=== PATIENT | male | born 1965 | race American Indian/Alaskan Native ===

== ENCOUNTER 2019-11-20 13:55 | Inpatient (IN) | payer MEDICAID, OTHER, SELFPAY ==
[2019-11-20] MEDS ORDERED: SODIUM CHLORIDE 0.9% 500 ML 500 ML IV ONE (14:19)
[2019-11-20 14:31] LABS: Basophils # (Auto) 0.1 K/mm3 (0.0-0.1); Basophils % (Auto) 0.9 % (0.0-1.8); Hematocrit 43.2 % (35.5-45.6); Hemoglobin 14.1 gm/dl (11.8-15.2); Lymphocytes # (Auto) 1.2 K/mm3 (1.2-5.4); Lymphocytes % (Auto) 10.8 % (13.4-35.0); Mean Corpuscular HGB Conc 33 % (32-34); Mean Corpuscular Volume 91 fl (84-94); Monocytes # (Auto) 0.6 K/mm3 (0.0-0.8); Monocytes % (Auto) 5.5 % (0.0-7.3); Platelet Count 479 K/mm3 (140-440); Red Blood Count 4.77 M/mm3 (3.65-5.03); Red Cell Distribution Width 15.5 % (13.2-15.2)
[2019-11-20] MEDS ORDERED: ROCURONIUM 50 MG/5 ML INJ IV ONE ×3 (14:34→14:55)
[2019-11-20] MEDS ORDERED: KETAMINE 500 MG/5 ML VIAL MDV ONE (14:35)
[2019-11-20 14:44] LABS: Bilirubin,Urine NEG (Negative); Blood,Urine SM (Negative); Color,Urine Amber (Yellow); Mucus,Urine 3+ /HPF; Urobilinogen,Urine < 2.0 mg/dL (<2.0)
[2019-11-20 14:46] LABS: INR 1.24 (0.87-1.13)
[2019-11-20] MEDS ORDERED: ACETAMINOPHEN 650 MG RECT SUPP PR ONE (14:55)
[2019-11-20] MEDS ORDERED: KETAMINE 500 MG/5 ML VIAL MDV IV ONE (14:55)
[2019-11-20] MEDS ORDERED: SODIUM CHLORIDE 0.9% 1000 ML IV SOLN IV ONE (14:55)
[2019-11-20] MEDS ORDERED: MIDAZOLAM 2 MG/2 ML INJ IV PRN (14:55)
[2019-11-20] MEDS ORDERED: fentaNYL 100 MCG/2 ML INJ IV PRN (14:55)
[2019-11-20] MEDS ORDERED: MINERAL OIL/PETROLATUM, WHITE OPHTH OINT 3.5 GM OU PRN (14:55)
[2019-11-20] MEDS ORDERED: LIP THERAPY VASELINE TP PRN (14:55)
--- NOTE | 2019-11-20 14:59 | Emergency Department Report ---
ED General Adult HPI - General Chief complaint: Dyspnea/Respdistress Stated complaint: NOBLE PUI?: Yes Time Seen by Provider: 11/20/19 14:13 Source: EMS ( EMS documentation not available at time of chart dictation ), RN notes reviewed, old records reviewed Mode of arrival: Ambulatory Limitations: Altered Mental Status, Physical Limitation - History of Present Illness Initial comments: The patient is a 54-year-old gentleman. I have evaluated this patient in the past. The patient was recently admitted to this hospital. His past medical history includes disability, recently evaluated for probable pneumonia, negative urine culture, had a TTE which had a suspected vegetation, ruled out for COVID pneumonia, had x-ray of the chest which showed right upper lobe nodular pneumonia, had a CT scan of the brain which was negative for acute findings. Today, the patient is brought to the hospital by emergency medical services for respiratory distress. It is unknown when the patient symptoms started. The patient is altered. The patient does not have a gag reflex. The patient desaturates to 83% on room air and is markedly tachypneic. He is not able to describe the qualitative nature of his symptoms, exacerbating, or relieving factors of his symptoms. Given altered mental status, tachypnea, lack of gag reflex, patient not a candidate for positive pressure noninvasive ventilation. He is immediately placed on isolation precautions, and intubated by myself using maximum barrier precautions and personal protective equipment. Please note that I had on complete personal protective equipment during the patient's initial history and physical examination. He is not accompanied by friends or family at this time, and therefore, collateral information is not available at this time. Currently, he is intubated, receiving mechanical ventilation, and sedation packets has been ordered. A code sepsis was called overhead. Appropriate antibiotics were ordered. Critical care physician is paged. -: unknown Radiation: other Severity scale (0 -10): 1 Quality: other Consistency: other Improves with: other Worsens with: other Associated Symptoms: other - Related Data Home Medications Medication Instructions Recorded Confirmed Last Taken ALPRAZolam [Xanax TAB] 1 mg PO HS PRN 11/09/19 11/09/19 Unknown Nicotine [Habitrol] 21 mg TRANSDERMA Q24HR 11/09/19 11/09/19 Unknown haloperidoL [Haloperidol] 5 mg PO DAILY 11/09/19 11/09/19 Unknown Previous Rx's Medication Instructions Recorded Last Taken Type LORazepam [Ativan] 1 mg PO QHS #30 tab 11/12/19 Unknown Rx Morphine Concentrate [MORPHINE 10 mg PO Q4HR PRN #30 ml 11/12/19 Unknown Rx Conc 20 MG/ML ORAL LIQ] Allergies Allergy/AdvReac Type Severity Reaction Status Date / Time No Known Allergies Allergy Unverified 11/08/19 16:31 ED Review of Systems ROS: Stated complaint: NOBLE Other details as noted in HPI Comment: Unobtainable due to pts medical conditions ED Past Medical Hx - Past Medical History Previous Medical History?: Yes Hx Diabetes: (Unknown) Hx Asthma: (Unknown) Hx COPD: (Ubknown) Additional medical history: unable to assess - Surgical History Additional Surgical History: unable to assess - Social History Smoking Status: Unknown if ever smoked Substance Use Type: Other - Medications Home Medications: Home Medications Medication Instructions Recorded Confirmed Last Taken Type ALPRAZolam [Xanax TAB] 1 mg PO HS PRN 11/09/19 11/09/19 Unknown History Nicotine [Habitrol] 21 mg TRANSDERMA Q24HR 11/09/19 11/09/19 Unknown History haloperidoL [Haloperidol] 5 mg PO DAILY 11/09/19 11/09/19 Unknown History LORazepam [Ativan] 1 mg PO QHS #30 tab 11/12/19 Unknown Rx Morphine Concentrate [MORPHINE 10 mg PO Q4HR PRN #30 ml 11/12/19 Unknown Rx Conc 20 MG/ML ORAL LIQ] ED Physical Exam - General Limitations: Physical Limitation General appearance: obtunded - Head Head exam: Present: atraumatic, normocephalic - Eye Eye exam: Present: normal appearance - ENT ENT exam: Present: mucous membranes dry - Neck Neck exam: Present: normal inspection - Respiratory Respiratory exam: Present: respiratory distress, wheezes, rhonchi, accessory muscle use - Cardiovascular Cardiovascular Exam: Present: normal rhythm, tachycardia, normal heart sounds. Absent: systolic murmur, diastolic murmur, rubs, gallop - GI/Abdominal GI/Abdominal exam: Present: soft, other (Scaphoid abdomen is noted). Absent: distended, tenderness, guarding, rebound, rigid, pulsatile mass - Rectal Rectal exam: Present: deferred - Extremities Exam Extremities exam: Present: normal inspection, other (2+ pulses noted in the bilateral upper and lower extremities. There is no palpable cord. negative Homans sign. Muscular compartments are soft. The pelvis is stable.). Absent: calf tenderness - Back Exam Back exam: Present: normal inspection. Absent: tenderness, CVA tenderness (R), CVA tenderness (L), paraspinal tenderness, vertebral tenderness - Neurological Exam Neurological exam: Present: altered, other (Initially breathing spontaneously. Eyes open spontaneously. Nonverbal. Not moving 4 extremities. Detailed neurologic examination not possible secondary to acute respiratory failure) - Skin Skin exam: Present: warm, dry, intact, normal color. Absent: rash ED Course Vital Signs 11/20/19 11/20/19 11/20/19 14:01 14:09 14:16 Temperature 100.8 F H Pulse Rate 137 H 136 H 131 H Respiratory 51 H 40 H 51 H Rate Blood Pressure 156/119 156/119 Blood Pressure 156/119 [Right] O2 Sat by Pulse 100 100 Oximetry 11/20/19 11/20/19 11/20/19 14:20 14:30 14:46 Temperature Pulse Rate 132 H 129 H Respiratory 40 H 47 H 34 H Rate Blood Pressure 156/119 156/119 Blood Pressure [Right] O2 Sat by Pulse 100 92 91 Oximetry 11/20/19 11/20/19 11/20/19 15:00 15:04 15:16 Temperature Pulse Rate 134 H 134 H Respiratory 15 18 20 Rate Blood Pressure 159/120 156/119 Blood Pressure [Right] O2 Sat by Pulse 90 Oximetry 11/20/19 11/20/19 11/20/19 15:30 15:32 15:33 Temperature Pulse Rate 128 H 135 H Respiratory 20 18 Rate Blood Pressure 156/119 159/120 Blood Pressure [Right] O2 Sat by Pulse 82 L 92 Oximetry 11/20/19 15:46 Temperature Pulse Rate 125 H Respiratory 21 Rate Blood Pressure 159/120 Blood Pressure [Right] O2 Sat by Pulse 91 Oximetry - Reevaluation(s) Reevaluation #1: 11/20/19 15:07 Differential diagnosis, including but not limited to: Bacteremia, viremia, pneumonia, viral versus bacterial, urinary tract infection Assessment and plan: 54-year-old gentleman with global alteration in mental status, last known well time is not known, with hypoxia, lack of a gag reflex, market tachypnea, recently ruled out for COVID, intubated for airway protection given the aforementioned findings. We will continue isolation. Fluids and antibiotics and supportive care will be administered. Critical care physician on-call is paged. He will need to be admitted. Reevaluation #2: 11/20/19 15:19 Case is presented to critical care physician, Dr. Vallejo, who will follow in consultation. Case presented to hospital physician, Dr. Bethea, who will admit the patient to the intensive care unit. - Intubation Time Out Performed: No (Emergency procedure) Sedative: Ketamine Mg Given: 100 Paralytic: Rocuronium Mg Given: 100 Laryngoscope: fiberoptic video scope Size: 4 Assist Device Used: fiberoptic device ET Tube Size: 7.5 Tube Secured Depth (cm): 23 Tube Secured Location: teeth Tube Placement Confirmation: visualized tube passing t, equal breath sounds bilat, no breath sounds over epi, confirmation by capnometr Intubation Complications: hypoxia (Patient was hypoxic prior to intubation. With [id number] ventilation, corrects to 90%) ED Medical Decision Making - Lab Data Result diagrams: 11/20/19 14:27 11/20/19 14:19 Vital Signs 11/20/19 11/20/19 14:09 14:20 Temperature 100.8 F H Pulse Rate 136 H Respiratory 40 H 40 H Rate Blood Pressure 156/119 Blood Pressure 156/119 [Right] O2 Sat by Pulse 100 100 Oximetry Lab Results 11/20/19 11/20/19 11/20/19 Range/Units 14:19 14:20 14:27 WBC 11.3 H (4.5-11.0) K/mm3 RBC 4.77 (3.65-5.03) M/mm3 Hgb 14.1 (11.8-15.2) gm/dl Hct 43.2 (35.5-45.6) % MCV 91 (84-94) fl MCH 30 (28-32) pg MCHC 33 (32-34) % RDW 15.5 H (13.2-15.2) % Plt Count 479 H (140-440) K/mm3 Lymph % (Auto) 10.8 L (13.4-35.0) % [place] % (Auto) 5.5 (0.0-7.3) % Eos % (Auto) 0.0 (0.0-4.3) % Baso % (Auto) 0.9 (0.0-1.8) % Lymph # 1.2 (1.2-5.4) K/mm3 [place]pton # 0.6 (0.0-0.8) K/mm3 Eos # 0.0 (0.0-0.4) K/mm3 Baso # 0.1 (0.0-0.1) K/mm3 Seg Neutrophils % 82.8 H (40.0-70.0) % Seg Neutrophils # 9.4 H (1.8-7.7) K/mm3 PT (12.2-14.9) Sec. INR (0.87-1.13) VBG pH (7.320-7.420) Sodium 145 (137-145) mmol/L Potassium 4.8 (3.6-5.0) mmol/L Chloride 102.4 (98-107) mmol/L Carbon Dioxide 24 (22-30) mmol/L Anion Gap 23 mmol/L BUN 21 H (9-20) mg/dL Creatinine 0.6 L (0.8-1.5) mg/dL Estimated GFR > 60 ml/min BUN/Creatinine Ratio 35 % Glucose 128 H (75-100) mg/dL Lactic Acid (0.7-2.0) mmol/L Calcium 9.4 (8.4-10.2) mg/dL Total Bilirubin 0.60 (0.1-1.2) mg/dL AST 35 (5-40) units/L ALT 22 (7-56) units/L Alkaline Phosphatase 57 (35-129) units/L Total Protein 9.0 H (6.3-8.2) g/dL Albumin 2.9 L (3.9-5) g/dL Albumin/Globulin Ratio 0.5 % Urine Color Gissel (Yellow) Urine Turbidity Clear (Clear) Urine pH 5.0 (5.0-7.0) Ur Specific [place] 1.027 (1.003-1.030) Urine Protein 30 mg/dl (Negative) mg/dL Urine Glucose (UA) Neg (Negative) mg/dL Urine Ketones Neg (Negative) mg/dL Urine Blood Sm (Negative) Urine Nitrite Neg (Negative) Urine Bilirubin Neg (Negative) Urine Urobilinogen < 2.0 (<2.0) mg/dL Ur Leukocyte Esterase Neg (Negative) Urine WBC (Auto) 4.0 (0.0-6.0) /HPF Urine RBC (Auto) 16.0 (0.0-6.0) /HPF Urine Mucus 3+ /HPF 11/20/19 11/20/19 11/20/19 Range/Units 14:27 14:36 14:36 WBC (4.5-11.0) K/mm3 RBC (3.65-5.03) M/mm3 Hgb (11.8-15.2) gm/dl Hct (35.5-45.6) % MCV (84-94) fl MCH (28-32) pg MCHC (32-34) % RDW (13.2-15.2) % Plt Count (140-440) K/mm3 Lymph % (Auto) (13.4-35.0) % [place] % (Auto) (0.0-7.3) % Eos % (Auto) (0.0-4.3) % Baso % (Auto) (0.0-1.8) % Lymph # (1.2-5.4) K/mm3 [place]pton # (0.0-0.8) K/mm3 Eos # (0.0-0.4) K/mm3 Baso # (0.0-0.1) K/mm3 Seg Neutrophils % (40.0-70.0) % Seg Neutrophils # (1.8-7.7) K/mm3 PT 15.3 H (12.2-14.9) Sec. INR 1.24 H (0.87-1.13) VBG pH 7.477 H (7.320-7.420) Sodium (137-145) mmol/L Potassium (3.6-5.0) mmol/L Chloride (98-107) mmol/L Carbon Dioxide (22-30) mmol/L Anion Gap mmol/L BUN (9-20) mg/dL Creatinine (0.8-1.5) mg/dL Estimated GFR ml/min BUN/Creatinine Ratio % Glucose (75-100) mg/dL Lactic Acid 1.60 (0.7-2.0) mmol/L Calcium (8.4-10.2) mg/dL Total Bilirubin (0.1-1.2) mg/dL AST (5-40) units/L ALT (7-56) units/L Alkaline Phosphatase (35-129) units/L Total Protein (6.3-8.2) g/dL Albumin (3.9-5) g/dL Albumin/Globulin Ratio % Urine Color (Yellow) Urine Turbidity (Clear) Urine pH (5.0-7.0) Ur Specific [place] (1.003-1.030) Urine Protein (Negative) mg/dL Urine Glucose (UA) (Negative) mg/dL Urine Ketones (Negative) mg/dL Urine Blood (Negative) Urine Nitrite (Negative) Urine Bilirubin (Negative) Urine Urobilinogen (<2.0) mg/dL Ur Leukocyte Esterase (Negative) Urine WBC (Auto) (0.0-6.0) /HPF Urine RBC (Auto) (0.0-6.0) /HPF Urine Mucus /HPF - EKG Data 11/20/19 16:00 This is a sinus tachycardia, borderline extreme rightward axis deviation, incomplete right bundle branch block, left ventricular hypertrophy, atrial enlargement, motion artifact. Not a STEMI. Rate 131 bpm. QTC prolonged, 457 ms. HI interval 134 ms - Radiology Data Radiology results: pending, report reviewed, image reviewed Chest single view INDICATION: Chest pain with dyspnea IMPRESSION: The endotracheal tube terminates about 2 cm above the fay. The patient is moderately rotated. Signer Name: Nolan Morgan MD Signed: 11/20/2019 2:21 PM Workstation Name: [id number] Critical Care Time: Yes Critical care time in (mins) excluding proc time.: 45 Critical care attestation.: If time is entered above; I have spent that time in minutes in the direct care of this critically ill patient, excluding procedure time. ED Disposition Clinical Impression: Suspected 2019 novel coronavirus infection, Respiratory failure, Systemic inflammatory response syndrome (SIRS) Acute respiratory failure Qualifiers: Respiratory failure complication: hypoxia Qualified Code(s): J96.01 - Acute respiratory failure with hypoxia Disposition: OP ADMIT IP TO THIS HOSP Is pt being admited?: Yes Does the pt Need Aspirin: No Condition: Critical Referrals: PRIMARY CARE, [Primary Care Provider] - 3-5 Days
[2019-11-20] MEDS ORDERED: VANCOMYCIN PHARMACY TO DOSE IV SCH (15:00)
[2019-11-20] MEDS ORDERED: CEFEPIME/NS 2 GM/100 ML 2 GM/100 ML BAG IV SCH (15:00)
[2019-11-20] MEDS ORDERED: MIDAZOLAM 100 MG in SODIUM CHLORIDE 0.9% 80 ML IV SCH (15:00)
[2019-11-20 15:20] LABS: Alanine Aminotransferase 22 units/L (7-56); Albumin 2.9 g/dL (3.9-5); BUN/Creatinine Ratio 35; Blood Urea Nitrogen 21 mg/dL (9-20); Calcium 9.4 mg/dL (8.4-10.2); Hemolysis Index 11
--- NOTE | 2019-11-20 15:21 | History and Physical Report ---
History of Present Illness Chief complaint: He cant breathe History of present illness: 54 YO Male Personal Alf Resident with Debility, Severe Malnutrition presents to ED for evaluation. Patient is intubated and on ventilatory support at the time of my evaluation and is unable to provide history. Patient history taken from EMS staff, as well as ED staff, and personal usp staff. As per personal usp staff-the patient was found to have shortness of breath today as well as concomitant confusion. EMS was notified and upon arrival the patient was found to be in distress and placed on supplemental oxygen and transported to [facility] for further evaluation and care. Patient seen and evaluated in the e mergency department. Lab and imaging studies reviewed. The patient was found to have a pulse oximetry of 82% on room air , encephalopathic, and was unable to protect his airway. The patient was intubated and placed on vent support. Patient also found to have SIRS, and clinical findings suggestive of COVID 19 Infection. Patient initiated on COVID-19 protocol. Infectious disease service consulted in ED, Pulmonology consulted in ED. Patient initiated on pneumonia protocol. No further history is obtainable. No medication listed for reconciliation at the time of my evaluation. Prior admission on 11/08/2019 reviewed. Past History Past Medical History: other (See HPI) Past Surgical History: No surgical history, Other (Reviewed) Social history: single. denies: smoking, alcohol abuse Family history: no significant family history, other (Reviewed) Medications and Allergies Allergies Allergy/AdvReac Type Severity Reaction Status Date / Time No Known Allergies Allergy Unverified 11/08/19 16:31 Home Medications Medication Instructions Recorded Confirmed Last Taken Type ALPRAZolam [Xanax TAB] 1 mg PO HS PRN 11/09/19 11/09/19 Unknown History Nicotine [Habitrol] 21 mg TRANSDERMA Q24HR 11/09/19 11/09/19 Unknown History haloperidoL [Haloperidol] 5 mg PO DAILY 11/09/19 11/09/19 Unknown History LORazepam [Ativan] 1 mg PO QHS #30 tab 11/12/19 Unknown Rx Morphine Concentrate [MORPHINE 10 mg PO Q4HR PRN #30 ml 11/12/19 Unknown Rx Conc 20 MG/ML ORAL LIQ] Active Meds: Active Medications Fentanyl (Sublimaze) 50 mcg IV Q10MIN PRN PRN Reason: ANALGESIA Hydrophilic Ointment (Vaseline Lip Therapy) 1 applic TP Q2HR PRN PRN Reason: Dry Lips Vancomycin HCl 1,500 mg/ (Sodium Chloride) 530 mls @ 333 mls/hr IV ONCE ONE; Protocol Stop: 11/20/19 17:35 Cefepime HCl (Cefepime/Ns 2 Gm/100 Ml) 2 gm in 100 mls @ 200 mls/hr IV NOW MARY; Protocol Stop: 11/20/19 15:29 Fentanyl Citrate (Fentanyl Drip Premix) 2,000 mcg in 100 mls @ 3.969 mls/hr IV TITR MARY; Protocol Midazolam HCl 100 mg/ Sodium (Chloride) 100 mls @ 2 mls/hr IV TITR MARY; Sathya col Midazolam HCl (Versed) 2 mg IV Q10MIN PRN PRN Reason: Sedation Multi-Ingred Cream/Lotion/Oil/Oint (Artificial Tears Ophth Oint) 1 applic OU Q4HR PRN PRN Reason: Dry Eye(s) Review of Systems ROS unobtainable: due to endotracheal tube, due to mental status Exam - Constitutional Vitals: Temp Pulse Resp BP Pulse Ox 100.8 F H 136 H 40 H 156/119 100 11/20/19 14:09 11/20/19 14:09 11/20/19 14:20 11/20/19 14:09 11/20/19 14:20 General appearance: Present: mild distress - EENT Eyes: Present: miosis ENT: hearing decreased - Neck Neck: Present: supple, normal ROM - Respiratory Respiratory effort: labored Respiratory: bilateral: diminished, rhonchi - Cardiovascular Heart Sounds: Present: S1 & S2. Absent: rub, click - Extremities Extremities: pulses symmetrical, No edema - Abdominal General gastrointestinal: Present: soft, non-tender, non-distended, normal bowel sounds Male genitourinary: Present: normal - Integumentary Integumentary: Present: clear, dry, clammy, decreased turgor - Musculoskeletal Musculoskeletal: generalized weakness - Psychiatric Psychiatric: no appropriate mood/affect, no intact judgment & insight, no memory intact - Neurologic Neurologic: CNII-XII intact, moves all extremities, no gait normal Results - Labs CBC & Chem 7: 11/20/19 14:27 11/20/19 14:19 Labs: Abnormal lab results 11/20/19 11/20/1920 Range/Units 14:19 14:27 14:27 WBC 11.3 H (4.5-11.0) K/mm3 RDW 15.5 H (13.2-15.2) % Plt Count 479 H (140-440) K/mm3 Lymph % (Auto) 10.8 L (13.4-35.0) % Seg Neutrophils % 82.8 H (40.0-70.0) % Seg Neutrophils # 9.4 H (1.8-7.7) K/mm3 PT 15.3 H (12.2-14.9) Sec. INR 1.24 H (0.87-1.13) VBG pH (7.320-7.420) BUN 21 H (9-20) mg/dL Creatinine 0.6 L (0.8-1.5) mg/dL Glucose 128 H (75-100) mg/dL Total Protein 9.0 H (6.3-8.2) g/dL Albumin 2.9 L (3.9-5) g/dL 11/20/19 Range/Units 14:36 WBC (4.5-11.0) K/mm3 RDW (13.2-15.2) % Plt Count (140-440) K/mm3 Lymph % (Auto) (13.4-35.0) % Seg Neutrophils % (40.0-70.0) % Seg Neutrophils # (1.8-7.7) K/mm3 PT (12.2-14.9) Sec. INR (0.87-1.13) VBG pH 7.477 H (7.320-7.420) BUN (9-20) mg/dL Creatinine (0.8-1.5) mg/dL Glucose (75-100) mg/dL Total Protein (6.3-8.2) g/dL Albumin (3.9-5) g/dL Assessment and Plan - Patient Problems (1) Acute respiratory failure Current Visit: Yes Status: Acute Qualifiers: Respiratory failure complication: hypoxia Qualified Code(s): J96.01 - Acute respiratory failure with hypoxia Plan to address problem: Patient debated and placed on ventilatory support, wean vent as tolerated, sedation holiday, spontaneous breathing trial in a.m., pulmonary team consulted. The high probability of a clinically significant, sudden or life threatening deterioration of the [pulmonary, cardiac, neuro] system(s) required my full and direct attention, intervention and personal management. The aggregate critical care time was [95] minutes. This time is in addition to time spent performing reported procedures but includes the following: [x] Data Review and interpretation [x] Patient assessment and monitoring of vital signs [x] Documentation [x] Medication orders and management (2) Suspected 2019 novel coronavirus infection Current Visit: Yes Status: Acute Plan to address problem: Coronavirus protocol, infectious disease service consulted, pulmonary consulted, coronavirus PCR ordered in emergency department. (3) Systemic inflammatory response syndrome (SIRS) Current Visit: Yes Status: Acute Plan to address problem: IV antibiotic therapy, CBC, CMP, chest x-ray, urinalysis, repeat CBC in a.m. (4) Encephalopathy Current Visit: No Status: Acute Plan to address problem: neuro check, aspiration precaution, seizure precautions, supportive care. (5) DVT prophylaxis Current Visit: No Status: Acute Plan to address problem: SCD to bilateral lower extremities while in bed, prophylactic heparin.
--- NOTE | 2019-11-20 15:25 | XRay Report ---
Chest single view INDICATION: Chest pain with dyspnea IMPRESSION: The endotracheal tube terminates about 2 cm above the fay. The patient is moderately r otated. Signer Name: Nolan Morgan MD Signed: 11/20/2019 3:21 PM Workstation Name: [id number]
[2019-11-20] MEDS: fentaNYL DRIP Premix 2,000 MCG/100 ML BAG IV SCH ×2 (15:44→22:44)
[2019-11-20] MEDS ORDERED: VANCOMYCIN 1,500 MG in SODIUM CHLORIDE 0.9% 500 ML 500 ML IV ONE (16:00)
[2019-11-20] MEDS ORDERED: fentaNYL DRIP Premix 2,000 MCG/100 ML BAG IV ONE (22:37)
[2019-11-21] MEDS: HEPARIN 5,000 UNIT/1 ML VIAL SUB-Q SCH ×3 (00:31→22:16)
[2019-11-21] MEDS ORDERED: HEPARIN 5,000 UNIT/1 ML VIAL ONE (00:31)
[2019-11-21 04:04] LABS: ABG Base Excess -0.5 mmol/L (-2.0-3.0); ABG HCO3 26.1 mmol/L (20.0-26.0); ABG Methemoglobin 0.5 % (0.0-1.5); ABG Oxygen Saturation 98.3 % (95.0-99.0); ABG PCO2 51.5 mm Hg; ABG PH 7.323 pH Units (7.350-7.450)
--- NOTE | 2019-11-21 05:06 | XRay Report ---
CHEST 1 VIEW, 11/21/2019 1:53 AM CLINICAL INFORMATION/INDICATION: Respiratory failure COMPARISON: Chest radiograph, 11/20/2019 FINDINGS: SUPPORT DEVICES: The endotracheal tube and esophagogastric tube project in expected position. HEART: The cardiac silhouette is normal in size. LUNGS/PLEURA: The lungs are clear of focal airspace disease or significant pleural effusion ADDITIONAL FINDINGS: No additional acute findings. IMPRESSION: 1. No evidence of acute cardiopulmonary process. Signer Name: Yanci Gómez MD Signed: 11/21/2019 5:02 AM Workstation Name: [id number]
[2019-11-21] MEDS ORDERED: cefTRIAXone/NS 1 GM/50 ML 1 GM/50 ML BAG IV SCH (10:00)
[2019-11-21] MEDS: fentaNYL DRIP Premix 2,000 MCG/100 ML BAG IV SCH ×2 (10:29→22:15)
--- NOTE | 2019-11-21 13:47 | Consultation ---
History of Present Illness - Reason for Consult Consult date: 11/21/19 r/o COVID Requesting physician: JONI POLANCO - History of Present Illness 54 y/o male with history of unknown medical history initially seen by ID during previous admission 11/08/2019 - 11/12/2019, sent to [facility]. During previous admission patient was found with generalized weakness, fever, cough and AMS for unclear period of time. EMS, found patient hypoxic mid 80s. EMS verbally stated that the patient was recently admitted to another hospital for unknown reasons. Patient's blood cultures grew coag-neg Staph initially felt to be a contaminant, however TTE with "fine linear ecodensity on TV" ? vegetation vs artefact, also noted to have aspiration pneumonia versus community-acquired pneumonia. COVID test negative. CXR with right upper lobe nodular pneumonia. Patient treated with Rocephin and vancomycin and plan was to do a transesophageal echo. However patient was discharged to hospice. Patient is now readmitted 11/20/2019 due to worsening shortness of breath and altered mental status. Symptoms are of unclear duration. Patient currently intubated unable to provide history. On arrival, temp 108, HR 137, R 26, BP 13 51 156/119, O2 83%. WBC 11.3. Ferritin 1110. D-dimer 4762. CRP 10. LDH 327. Procalcitonin 0.2. UA negative. Blood cultures no growth today. Urine culture 11/20/2019 no growth today. CXR no cardiopulmonary findings. On arrival patient was intubated due to desaturation down to 83%, severe tachypnea and lack of gag reflex. Review of Systems: Unable to obtain Past History Past Medical History: other (See HPI) Past Surgical History: No surgical history, Other (Reviewed) Social history: single. denies: smoking, alcohol abuse Family history: no significant family history, other (Reviewed) Medications and Allergies Allergies Allergy/AdvReac Type Severity Reaction Status Date / Time No Known Allergies Allergy Unverified 11/08/19 16:31 Home Medications Medication Instructions Recorded Confirmed Last Taken Type ALPRAZolam [Xanax TAB] 1 mg PO HS PRN 11/09/19 11/09/19 Unknown History Nicotine [Habitrol] 21 mg TRANSDERMA Q24HR 11/09/19 11/09/19 Unknown History haloperidoL [Haloperidol] 5 mg PO DAILY 11/09/19 11/09/19 Unknown History LORazepam [Ativan] 1 mg PO QHS #30 tab 11/12/19 Unknown Rx Morphine Concentrate [MORPHINE 10 mg PO Q4HR PRN #30 ml 11/12/19 Unknown Rx Conc 20 MG/ML ORAL LIQ] Active Meds: Active Medications Famotidine (Pepcid) 20 mg IV BID MARY Fentanyl (Sublimaze) 50 mcg IV Q10MIN PRN PRN Reason: ANALGESIA Heparin Sodium (Porcine) (Heparin) 5,000 unit SUB-Q Q12HR MARY Last Admin: 11/21/19 10:29 Dose: 5,000 unit Documented by: Hydrophilic Ointment (Vaseline Lip Therapy) 1 applic TP Q2HR PRN PRN Reason: Dry Lips Fentanyl Citrate (Fentanyl Drip Premix) 2,000 mcg in 100 mls @ 3.969 mls/hr IV TITR MARY; Protocol Last Admin: 11/21/19 10:29 Dose: 2 mcg/kg/hr, 7.938 mls/hr Documented by: Midazolam HCl 100 mg/ Sodium (Chloride) 100 mls @ 2 mls/hr IV TITR MARY; Protocol Ceftriaxone Sodium (Rocephin/Ns 1 Gm/50 Ml) 1 gm in 50 mls @ 100 mls/hr IV Q24HR MARY; Protocol Stop: 11/24/19 23:59 Last Admin: 11/21/19 11:02 Dose: 100 mls/hr Documented by: Midazolam HCl (Versed) 2 mg IV Q10MIN PRN PRN Reason: Sedation Multi-Ingred Cream/Lotion/Oil/Oint (Artificial Tears Ophth Oint) 1 applic OU Q4HR PRN PRN Reason: Dry Eye(s) Sodium Chloride (Sodium Chloride Flush Syringe 10 Ml) 10 ml IV BID MARY Last Admin: 11/20/19 22:45 Dose: 10 ml Documented by: Sodium Chloride (Sodium Chloride Flush Syringe 10 Ml) 10 ml IV PRN PRN PRN Reason: LINE FLUSH Last Admin: 11/21/19 10:29 Dose: 10 ml Documented by: Physical Examination - Physical Exam Narrative exam: General appearance: Alert intubated cachectic Eyes: Pupils equal reactive light accommodation nonicteric conjunctivae LUIS in place HENT: Atraumatic; oropharynx limited ETT Lungs: kimberlyn scattered rhonchi CV: RRR Abdomen: Soft Extremities: Cachectic Skin: No rash. Psych: Nonagitated Neuro: alert on the ventilator not following commands - Constitutional Vitals: Vital Signs Temp Pulse Resp BP Pulse Ox 98.6 F 105 H 20 105/72 98 11/21/19 12:00 11/21/19 12:00 11/21/19 12:00 11/21/19 11:21 11/21/19 12:00 Temperature -Last 24 Hours Temperature 98.6 F Temperature 98.6 F Temperature 98.7 F Temperature 98.1 F Temperature 100.8 F Temperature 100.8 F Results - Labs CBC & Chem 7: 11/20/19 14:27 11/20/19 15:16 Labs: Abnormal lab results 11/20/19 11/20/19 11/20/19 Range/Units 14:19 14:27 14:27 WBC 11.3 H (4.5-11.0) K/mm3 RDW 15.5 H (13.2-15.2) % Plt Count 479 H (140-440) K/mm3 Lymph % (Auto) 10.8 L (13.4-35.0) % Seg Neutrophils % 82.8 H (40.0-70.0) % Seg Neutrophils # 9.4 H (1.8-7.7) K/mm3 PT 15.3 H (12.2-14.9) Sec. INR 1.24 H (0.87-1.13) D-Dimer (0-234) ng/mlDDU ABG pH (7.350-7.450) pH Units ABG pO2 (80.0-90.0) mm Hg ABG HCO3 (20.0-26.0) mmol/L ABG Hemoglobin (14.0-18.0) gm/dl VBG pH (7.320-7.420) BUN 21 H (9-20) mg/dL Creatinine 0.6 L (0.8-1.5) mg/dL Glucose 128 H (75-100) mg/dL POC Glucose (70-105) Ferritin (13.0-400.0) ng/mL Lactate Dehydrogenase (91-180) units/L C-Reactive Protein (0.00-1.30) mg/dL Total Protein 9.0 H (6.3-8.2) g/dL Albumin 2.9 L (3.9-5) g/dL 11/20/19 11/20/19 11/20/19 Range/Units 14:36 15:16 15:16 WBC (4.5-11.0) K/mm3 RDW (13.2-15.2) % Plt Count (140-440) K/mm3 Lymph % (Auto) (13.4-35.0) % Seg Neutrophils % (40.0-70.0) % Seg Neutrophils # (1.8-7.7) K/mm3 PT (12.2-14.9) Sec. INR (0.87-1.13) D-Dimer 4762.24 H (0-234) ng/mlDDU ABG pH (7.350-7.450) pH Units ABG pO2 (80.0-90.0) mm Hg ABG HCO3 (20.0-26.0) mmol/L ABG Hemoglobin (14.0-18.0) gm/dl VBG pH 7.477 H (7.320-7.420) BUN (9-20) mg/dL Creatinine (0.8-1.5) mg/dL Glucose 122 H (75-100) mg/dL POC Glucose (70-105) Ferritin (13.0-400.0) ng/mL Lactate Dehydrogenase 329 H (91-180) units/L C-Reactive Protein 10.00 H (0.00-1.30) mg/dL Total Protein (6.3-8.2) g/dL Albumin (3.9-5) g/dL 11/20/19 11/21/19 11/21/19 Range/Units 15:16 03:55 12:18 WBC (4.5-11.0) K/mm3 RDW (13.2-15.2) % Plt Count (140-440) K/mm3 Lymph % (Auto) (13.4-35.0) % Seg Neutrophils % (40.0-70.0) % Seg Neutrophils # (1.8-7.7) K/mm3 PT (12.2-14.9) Sec. INR (0.87-1.13) D-Dimer (0-234) ng/mlDDU ABG pH 7.323 L (7.350-7.450) pH Units ABG pO2 127.0 H (80.0-90.0) mm Hg ABG HCO3 26.1 H (20.0-26.0) mmol/L ABG Hemoglobin 12.2 L (14.0-18.0) gm/dl VBG pH (7.320-7.420) BUN (9-20) mg/dL Creatinine (0.8-1.5) mg/dL Glucose (75-100) mg/dL POC Glucose 108 H (70-105) Ferritin 1110.0 H (13.0-400.0) ng/mL Lactate Dehydrogenase (91-180) units/L C-Reactive Protein (0.00-1.30) mg/dL Total Protein (6.3-8.2) g/dL Albumin (3.9-5) g/dL Assessment and Plan Cultures: Blood culture pending Assessment: 54 y/o male with history of unknown medical history initially seen by ID during previous admission 11/08/2019 - 11/12/2019, sent to [facility]. Patient is now readmitted 11/20/2019 due to worsening shortness of breath and altered mental status: #SIRS r/o sepsis: Present on admission with tachycardia, fever, unclear etiolo gy. UA neg. #R/o COVID: COVID test neg on on 514 and 11/19. However, noted markedly elevated inflammatory markers. Ferritin 1110. D-dimer 4762. CRP 10. LDH 327. Noted elevated mild procalcitonin at 0.2. Still high suspicion. #Recent Bilateral pneumonia: previous CXR with right upper lobe nodular pneumonia. #Acute hypoxemic respiratory failure: intubated #History of Coag-neg Staph bacteremia: initially felt to be a contaminant, however TTE with "fine linear ecodensity on TV" ? vegetation vs artefact, recommended LUIS but patient was discharged to hospice. #Severe malnutrition: obtain HIV and CT chest, abdomen and pelvis Recommendations: re-test for COVID-micro lab informed start vancomycin with PK consult stop ceftriaxone start cefepime 2 gm IV q 12h repeat TTE poor prognosis Will follow Malou tSone MD Infectious Diseases [employer] [facility], [place], [facility] ([facility] M [phone] O [phone]
--- NOTE | 2019-11-21 14:38 | Consultation ---
History of Present Illness Consult date: 11/21/19 Requesting physician: MARGIE VELIZ Reason for consult: other (Acute Hypoxemic Respiratory Failure) History of present illness: PULMONARY/CCM CONSULT NOTE (Full dictation # [id number] & [id number]) Please see dictated notes for full details Past History Past Medical History: other (See HPI) Past Surgical History: No surgical history, Other (Reviewed) Social history: single. denies: smoking, alcohol abuse Family history: no significant family history, other (Reviewed) Medications and Allergies Allergies Allergy/AdvReac Type Severity Reaction Status Date / Time No Known Allergies Allergy Unverified 11/08/19 16:31 Home Medications Medication Instructions Recorded Confirmed Last Taken Type ALPRAZolam [Xanax TAB] 1 mg PO HS PRN 11/09/19 11/09/19 Unknown History Nicotine [Habitrol] 21 mg TRANSDERMA Q24HR 11/09/19 11/09/19 Unknown History haloperidoL [Haloperidol] 5 mg PO DAILY 11/09/19 11/09/19 Unknown History LORazepam [Ativan] 1 mg PO QHS #30 tab 11/12/19 Unknown Rx Morphine Concentrate [MORPHINE 10 mg PO Q4HR PRN #30 ml 11/12/19 Unknown Rx Conc 20 MG/ML ORAL LIQ] Active Meds: Active Medications Famotidine (Pepcid) 20 mg IV BID MARY Fentanyl (Sublimaze) 50 mcg IV Q10MIN PRN PRN Reason: ANALGESIA Heparin Sodium (Porcine) (Heparin) 5,000 unit SUB-Q Q12HR MARY Last Admin: 11/21/19 10:29 Dose: 5,000 unit Documented by: Hydrophilic Ointment (Vaseline Lip Therapy) 1 applic TP Q2HR PRN PRN Reason: Dry Lips Fentanyl Citrate (Fentanyl Drip Premix) 2,000 mcg in 100 mls @ 3.969 mls/hr IV TITR MARY; Protocol Last Admin: 11/21/19 10:29 Dose: 2 mcg/kg/hr, 7.938 mls/hr Documented by: Midazolam HCl 100 mg/ Sodium (Chloride) 100 mls @ 2 mls/hr IV TITR MARY; Protocol Midazolam HCl (Versed) 2 mg IV Q10MIN PRN PRN Reason: Sedation Multi-Ingred Cream/Lotion/Oil/Oint (Artificial Tears Ophth Oint) 1 applic OU Q4HR PRN PRN Reason: Dry Eye(s) Sodium Chloride (Sodium Chloride Flush Syringe 10 Ml) 10 ml IV BID MARY Last Admin: 11/20/19 22:45 Dose: 10 ml Documented by: Sodium Chloride (Sodium Chloride Flush Syringe 10 Ml) 10 ml IV PRN PRN PRN Reason: LINE FLUSH Last Admin: 11/21/19 10:29 Dose: 10 ml Documented by: Physical Examination Vital signs: Vital Signs Pulse Resp 137 H 51 H 11/20/19 14:01 11/20/19 14:01 Results - Laboratory Findings CBC and BMP: 11/20/19 14:27 11/20/19 15:16 ABG ABG pH 7.323 pH Units (7.350-7.450) L 11/21/19 03:55 ABG pCO2 51.5 mm Hg 11/21/19 03:55 ABG pO2 127.0 mm Hg (80.0-90.0) H 11/21/19 03:55 ABG O2 Saturation 98.3 % (95.0-99.0) 11/21/19 03:55 PT/INR, D-dimer PT 15.3 Sec. (12.2-14.9) H 11/20/19 14:27 INR 1.24 (0.87-1.13) H 11/20/19 14:27 D-Dimer 4762.24 ng/mlDDU (0-234) H 11/20/19 15:16 Abnormal lab findings: Abnormal Labs 11/20/19 11/20/19 11/20/19 14:19 14:27 14:27 WBC 11.3 H RDW 15.5 H Plt Count 479 H Lymph % (Auto) 10.8 L Seg Neutrophils % 82.8 H Seg Neutrophils # 9.4 H PT 15.3 H INR 1.24 H D-Dimer ABG pH ABG pO2 ABG HCO3 ABG Hemoglobin VBG pH BUN 21 H Creatinine 0.6 L Glucose 128 H POC Glucose Ferritin Lactate Dehydrogenase C-Reactive Protein Total Protein 9.0 H Albumin 2.9 L 11/20/19 11/20/19 11/20/19 14:36 15:16 15:16 WBC RDW Plt Count Lymph % (Auto) Seg Neutrophils % Seg Neutrophils # PT INR D-Dimer 4762.24 H ABG pH ABG pO2 ABG HCO3 ABG Hemoglobin VBG pH 7.477 H BUN Creatinine Glucose 122 H POC Glucose Ferritin Lactate Dehydrogenase 329 H C-Reactive Protein 10.00 H Total Protein Albumin 11/20/19 11/21/19 11/21/19 15:16 03:55 12:18 WBC RDW Plt Count Lymph % (Auto) Seg Neutrophils % Seg Neutrophils # PT INR D-Dimer ABG pH 7.323 L ABG pO2 127.0 H ABG HCO3 26.1 H ABG Hemoglobin 12.2 L VBG pH BUN Creatinine Glucose POC Glucose 108 H Ferritin 1110.0 H Lactate Dehydrogenase C-Reactive Protein Total Protein Albumin
[2019-11-21] MEDS ORDERED: VANCOMYCIN/NS 1 GM/250 ML 1 GM/250 ML BAG IV SCH (15:00)
[2019-11-21] MEDS ORDERED: ALBUTEROL 2.5 MG/3 ML NEBU IH PRN (16:09)
--- NOTE | 2019-11-21 17:18 | Progress Note ---
Assessment and Plan - Patient Problems (1) Acute respiratory failure Current Visit: Yes Status: Acute Qualifiers: Respiratory failure complication: hypoxia Qualified Code(s): J96.01 - Acute respiratory failure with hypoxia Plan to address problem: Patient debated and placed on ventilatory support, wean vent as tolerated, sedation holiday, spontaneous breathing trial in a.m., pulmonary team consulted. The high probability of a clinically significant, sudden or life threatening deterioration of the [pulmonary, cardiac, neuro] system(s) required my full and direct attention, intervention and personal management. The aggregate critical care time was [95] minutes. This time is in addition to time spent performing reported procedures but includes the following: [x] Data Review and interpretation [x] Patient assessment and monitoring of vital signs [x] Documentation [x] Medication orders and management (2) Suspected 2019 novel coronavirus infection Current Visit: Yes Status: Acute Plan to address problem: Coronavirus protocol, infectious disease service consulted, pulmonary consulted, coronavirus PCR ordered in emergency department. (3) Systemic inflammatory response syndrome (SIRS) Current Visit: Yes Status: Acute Plan to address problem: IV antibiotic therapy, CBC, CMP, chest x-ray, urinalysis, repeat CBC in a.m. (4) Encephalopathy Current Visit: No Status: Acute Plan to address problem: neuro check, aspiration precaution, seizure precautions, supportive care. (5) DVT prophylaxis Current Visit: No Status: Acute Plan to address problem: SCD to bilateral lower extremities while in bed, prophylactic heparin. History Interval history: 54 YO Male HD#2 with Acute Respiratory Failure currently intubated on vent support, SIRS, Encephalopathy, suspected Covid 19. Patient maintained on ventilatory support overnight. Patient unable to be weaned from vent at this time. No improvement in patient status overnight however no decompensation overnight. Will wean vent as tolerated. Spontaneous breathing trial daily. Hospitalist Physical - Constitutional Vitals: Temp Pulse Resp BP Pulse Ox 98.6 F 107 H 20 105/72 98 11/21/19 16:00 11/21/19 15:54 11/21/19 14:00 11/21/19 15:54 11/21/19 15:54 General appearance: Present: mild distress - EENT Eyes: Present: miosis ENT: hearing decreased - Neck Neck: Present: supple - Respiratory Respiratory: bilateral: diminished, rhonchi - Cardiovascular Rhythm: regular Heart Sounds: Present: S1 & S2 - Extremities Extremities: no ischemia Peripheral Pulses: within normal limits - Abdominal General gastrointestinal: soft, non-tender, non-distended - Integumentary Integumentary: Present: clear, warm, dry - Psychiatric Psychiatric: no appropriate mood/affect, no intact judgment & insight, no memory intact - Neurologic Neurologic: no focal deficits, no moves all extremities, no gait normal Results - Labs CBC & Chem 7: 11/20/19 14:27 11/20/19 15:16 Labs: Laboratory Last Values WBC 11.3 K/mm3 (4.5-11.0) H 11/20/19 14:27 RBC 4.77 M/mm3 (3.65-5.03) 11/20/19 14: Hgb 14.1 gm/dl (11.8-15.2) 11/20/19 14: Hct 43.2 % (35.5-45.6) 11/20/19 14:27 MCV 91 fl (84-94) 11/20/19 14: MCH 30 pg (28-32) 11/20/19 14: MCHC 33 % (32-34) 11/20/19 14: RDW 15.5 % (13.2-15.2) H 11/20/19 14:27 Plt Count 479 K/mm3 (140-440) H 11/20/19 14:27 Lymph % (Auto) 10.8 % (13.4-35.0) L 11/20/19 14:27 [place] % (Auto) 5.5 % (0.0-7.3) 11/20/19 14: Eos % (Auto) 0.0 % (0.0-4.3) 11/20/19 14:27 Baso % (Auto) 0.9 % (0.0-1.8) 11/20/19 14: Lymph # 1.2 K/mm3 (1.2-5.4) 11/20/19 14: [place] # 0.6 K/mm3 (0.0-0.8) 11/20/19 14: Eos # 0.0 K/mm3 (0.0-0.4) 11/20/19 14: Baso # 0.1 K/mm3 (0.0-0.1) 11/20/19 14:27 Seg Neutrophils % 82.8 % (40.0-70.0) H 11/20/19 14:27 Seg Neutrophils # 9.4 K/mm3 (1.8-7.7) H 11/20/19 14:27 PT 15.3 Sec. (12.2-14.9) H 11/20/19 14:27 INR 1.24 (0.87-1.13) H 11/20/19 14:27 D-Dimer 4762.24 ng/mlDDU (0-234) H 11/20/19 15:16 ABG pH 7.323 pH Units (7.350-7.450) L 11/21/19 03:55 ABG pCO2 51.5 mm Hg 11/21/19 03:55 ABG pO2 127.0 mm Hg (80.0-90.0) H 11/21/19 03:55 ABG HCO3 26.1 mmol/L (20.0-26.0) H 11/21/19 03:55 ABG O2 Saturation 98.3 % (95.0-99.0) 11/21/19 03:55 ABG O2 Content 16.8 (0.0-44) 11/21/19 03:55 ABG Base Excess -0.5 mmol/L (-2.0-3.0) 11/21/19 03:55 ABG Hemoglobin 12.2 gm/dl (14.0-18.0) L 11/21/19 03:55 ABG Carboxyhemoglobin 1.1 % (0.0-5.0) 11/21/19 03:55 ABG Methemoglobin 0.5 % (0.0-1.5) 11/21/19 03:55 VBG pH 7.477 (7.320-7.420) H 11/20/19 14:36 Oxyhemoglobin 96.7 % (95.0-99.0) 11/21/19 03:55 FiO2 60 % 11/21/19 03:55 Sodium 145 mmol/L (137-145) 11/20/19 14:19 Potassium 4.8 mmol/L (3.6-5.0) 11/20/19 14:19 Chloride 102.4 mmol/L (98-107) 11/20/19 14:19 Carbon Dioxide 24 mmol/L (22-30) 11/20/19 14:19 Anion Gap 23 mmol/L 11/20/19 14:19 BUN 21 mg/dL (9-20) H 11/20/19 14:19 Creatinine 0.6 mg/dL (0.8-1.5) L 11/20/19 14:19 Estimated GFR > 60 ml/min 11/20/19 14:19 BUN/Creatinine Ratio 35 % 11/20/19 14:19 Glucose 122 mg/dL (75-100) H 11/20/19 15:16 POC Glucose 108 (70-105) H 11/21/19 12:18 Lactic Acid 1.50 mmol/L (0.7-2.0) 11/20/19 19:11 Calcium 9.4 mg/dL (8.4-10.2) 11/20/19 14:19 Magnesium 2.20 mg/dL (1.7-2.3) 11/20/19 15:16 Ferritin 1110.0 ng/mL (13.0-400.0) H 11/20/19 15:16 Total Bilirubin 0.60 mg/dL (0.1-1.2) 11/20/19 14:19 AST 35 units/L (5-40) 11/20/19 14:19 ALT 22 units/L (7-56) 11/20/19 14:19 Alkaline Phosphatase 57 units/L (35-129) 11/20/19 14:19 Lactate Dehydrogenase 329 units/L (91-180) H 11/20/19 15:16 Total Creatine Kinase 65 units/L (55-170) 11/20/19 15:16 C-Reactive Protein 10.00 mg/dL (0.00-1.30) H 11/20/19 15:16 Total Protein 9.0 g/dL (6.3-8.2) H 11/20/19 14:19 Albumin 2.9 g/dL (3.9-5) L 11/20/19 14:19 Albumin/Globulin Ratio 0.5 % 11/20/19 14:19 Procalcitonin 0.22 ng/mL (<0.15) 11/20/19 15:16 Urine Color [place] (Yellow) 11/20/19 14:20 Urine Turbidity Clear (Clear) 11/20/19 14:20 Urine pH 5.0 (5.0-7.0) 11/20/19 14:20 Ur Specific Orange 1.027 (1.003-1.030) 11/20/19 14:20 Urine Protein 30 mg/dl mg/dL (Negative) 11/20/19 14:20 Urine Glucose (UA) Neg mg/dL (Negative) 11/20/19 14:20 Urine Ketones Neg mg/dL (Negative) 11/20/19 14:20 Urine Blood Sm (Negative) 11/20/19 14:20 Urine Nitrite Neg (Negative) 11/20/19 14:20 Urine Bilirubin Neg (Negative) 11/20/19 14:20 Urine Urobilinogen < 2.0 mg/dL (<2.0) 11/20/19 14:20 Ur Leukocyte Esterase Neg (Negative) 11/20/19 14:20 Urine WBC (Auto) 4.0 /HPF (0.0-6.0) 11/20/19 14:20 Urine RBC (Auto) 16.0 /HPF (0.0-6.0) 11/20/19 14:20 Urine Mucus 3+ /HPF 11/20/19 14:20 Coronavirus (PCR) Negative (Negative) 11/21/19 Unknown Microbiology: Microbiology 11/20/19 Unknown Peripheral/Venous Blood Culture - Preliminary NO GROWTH AFTER 24 HOURS 11/20/19 Unknown Peripheral/Venous Blood Culture - Preliminary NO GROWTH AFTER 24 HOURS 11/20/19 14:20 Urine,[place] Urine Culture - Preliminary NO GROWTH AFTER 24 HOURS [place]/IV: Voiding Method Indwelling Catheter IV Catheter Type [Left Wrist] INT / Saline Lock Active Medications - Current Medications Current Medications: Generic Name Dose Route Start Last Admin Trade Name Freq PRN Reason Stop Dose Admin Albuterol 2.5 mg 11/21/19 16:09 Proventil IH Q4HRT PRN Shortness Of Breath Famotidine 20 mg 11/21/19 12:00 Pepcid IV BID MARY Fentanyl 50 mcg 11/20/19 14:55 Sublimaze IV Q10MIN PRN ANALGESIA Heparin Sodium (Porcine) 5,000 unit 11/20/19 22:00 11/21/19 10:29 Heparin SUB-Q 5,000 unit Q12HR MARY Administration Hydrophilic Ointment 1 applic 11/20/19 14:55 Vaseline Lip Therapy TP Q2HR PRN Dry Lips Fentanyl Citrate 2,000 mcg in 100 mls @ 3.969 mls/hr 11/20/19 15:00 11/21/19 10:29 Fentanyl Drip Premix IV 2 mcg/kg/hr TITR MARY 7.938 mls/hr Administration Protocol 1 MCG/KG/HR Midazolam HCl 100 mg/ Sodium 100 mls @ 2 mls/hr 11/20/19 15:00 Chloride IV TITR MARY Protocol 2 MG/HR Cefepime HCl 2 gm in 100 mls @ 200 mls/hr 11/21/19 15:00 Cefepime/Ns 2 Gm/100 Ml IV Q12HR MARY Protocol Vancomycin HCl 1,250 mg/ 275 mls @ 166.667 mls/hr 11/21/19 17:00 Sodium Chloride IV Q12H MARY Midazolam HCl 2 mg 11/20/19 14:55 Versed IV Q10MIN PRN Sedation Multi-Ingred Cream/Lotion/Oil/Oint 1 applic 11/20/19 14:55 Artificial Tears Ophth Oint OU Q4HR PRN Dry Eye(s) Sodium Chloride 10 ml 11/20/19 22:00 11/20/19 22:45 Sodium Chloride Flush Syringe 10 Ml IV 10 ml BID MARY Administration Sodium Chloride 10 ml 11/20/19 15:22 11/21/19 10:29 Sodium Chloride Flush Syringe 10 Ml IV 10 ml PRN PRN Administration LINE FLUSH Nutrition/Malnutrition Assess - Dietary Evaluation Nutrition/Malnutrition Findings: Nutrition Notes Start: 11/21/19 08:43 Freq: Status: Active Protocol: Document 11/21/19 08:43 LP (Rec: 11/21/19 08:51 LP [id number]) Nutrition Notes Need for Assessment generated from: MD Order Initial or Follow up Assessment Current Diagnosis Decubitus(Pressure Ulcer), Respiratory Failure Other Pertinent Diagnosis SIRS, Encephalopathy, sacral and R buttock wound Current Diet NPO Labs/Tests Reviewed Pertinent Medications Reviewed Height 6 ft Weight 79.379 kg [place] Body Weight (kg) 80.90 BMI 23.7 Weight Status Appropriate Subjective/Other Information Consult for evaluate nutritional intake. Pt on vent with OGT. Pt from personal m[facility] and also on hospice but full code. Burn Absent Trauma Absent GI Symptoms None Current % PO Negligible Minimum of two criteria No physical signs of malnutrition #2 Nutrition Diagnosis Excessive enteral nutrition infusion Comments: protein Etiology Wound healing As Evidenced by Signs and Symptoms Pt with sacral and R buttock wound #1 Nutrition Diagnosis Inadequate oral intake Etiology vent As Evidenced by Signs and Symptoms Pt unable to consume PO Is patient on ventilator? Yes Is Patient Ambulatory and/or Out of Bed No REE-([facility]-confined to bed) 2021.192 Calculation Used for Recommendations [facility] Additional Notes Protein needs are 95-159g (1.2 -2g/kg) Fluid needs are 1ml/kcal Nutrition Intervention Change Diet Order: TF consult or extubation/diet advancement Nutrition Support: Once consulted Vital 1.2 at 70ml/hr Flush with 120ml q4h Kcal 2,016 Protein (gm) 126 Fluid (mL) 1,357 Goal #1 TF consult or extubation/diet advancement Goal #2 Wound healing Anticipated Discharge Needs: Unable to determine at this time Follow-Up By: 11/23/19 Additional Comments Follow for TF consult or extubation/diet advancement
[2019-11-21] MEDS: VANCOMYCIN 1,250 MG in SODIUM CHLORIDE 0.9% 250ML 250 ML IV SCH (17:25)
[2019-11-21] MEDS: CEFEPIME/NS 2 GM/100 ML 2 GM/100 ML BAG IV SCH ×2 (17:26→22:17)
--- NOTE | 2019-11-21 19:18 | Consultation ---
PULMONARY CRITICAL CARE CONSULTATION CONSULTING PHYSICIAN: Dr. Moctezuma. REASON FOR CONSULTATION: Acute hypoxemic respiratory failure, on mechanical ventilatory support. CHIEF COMPLAINT AND HISTORY OF PRESENT ILLNESS: The patient is a 54-year-old -Stateless male with past medical history significant amongst other things for severe debility, presumably some form of prior cerebrovascular accident and severe malnutrition, who was brought into the Emergency Room by, I believe the staff at the [facility] secondary to shortness of breath and confusion. In the ER, he was hypoxemic. He was encephalopathic. He was intubated in the Emergency Room for respiratory support. He was diagnosed with systemic inflammatory response syndrome and was admitted with a suspicion for COVID-19 infection. We are asked to assist with management. When I stopped by to see him, he remained on mechanical ventilator. When asked if he could hear me, he nodded his head yes. He denied any pain at that time. However, his history was definitely limited by the fact that he was intubated. I do not have any history of vomiting or overt aspiration. It is unclear if he was having any fevers or chills at the shelter; however, since he has been over here, he has been with a T-max of 100.8 degrees Fahrenheit. The patient presumably is not a current smoker or drinker; however, remote history is unknown. This unfortunately is as much of the history of presentation as I have. PAST MEDICAL HISTORY: Debility, severe malnutrition. PAST SURGICAL HISTORY: Unknown. MEDICATIONS: He was on at the time I stopped by to see him were reviewed, pertinent medications include the following, cefepime 2 g IV q.12 hours, Pepcid 20 mg IV b.i.d., fentanyl drip was going at 2 mcg/kg per hour, heparin 5000 units subcutaneous q.12 hours, Versed 2 mg per hour drip, and vancomycin 1.25 g IV q.12 hours. ALLERGIES: No known drug allergies. DIET: Thin, cachectic gentleman, acute weight loss or gain history is unknown. FAMILY AND SOCIAL HISTORY: Resident of a [facility]. No current alcohol, tobacco, or illicit drug use or abuse. Remote history is unknown. Family history is otherwise unknown. REVIEW OF SYSTEMS: Difficult to obtain secondary to the patient's medical and mental condition. Since he has been here, no gross hematochezia or melena, no gross hematuria, no hematemesis, no bloody tracheal secretions, no witnessed seizures. Review of systems otherwise unobtainable. PHYSICAL EXAMINATION: VITAL SIGNS: On examination at presentation in the Emergency Room, he was febrile, temperature 100.8 degrees Fahrenheit, pulse of 137, respiratory rate as high as 51, blood pressure 156/119, O2 sats 100%, inspired oxygen concentration at that time was not recorded. When I stopped by to see him, his O2 sats were 98% that was on the assist control mode of ventilation, tidal volumes of 450, rate of 20, PEEP of 10 at that time and 50% FiO2. GENERAL: He is a middle-aged, chronically ill-looking -Stateless male. Normocephalic, on the mechanical ventilator with mildly increased respiratory effort at rest. HEAD, EYES, EARS, NOSE AND THROAT: Anicteric. No conjunctival erythema. Oropharynx was dry. Endotracheal tube was taped at the lips around 23-24 cm. NECK: Grossly, there were no palpable lymph nodes in the supraclavicular or submandibular lymph node chains. He had temporal wasting bilaterally. LUNGS: Auscultation of both lung morley significant for diminished bilateral breath sounds, scant rhonchi, no wheezing. HEART: Heart sounds 1 and 2 are heard at the time of my evaluation, regular, tachycardia without overt rubs or murmurs. ABDOMEN: Soft, flat. Bowel sounds are positive, nontender, no palpable hepatosplenomegaly. EXTREMITIES: Without overt digital clubbing, no cyanosis, no pedal edema. Pedal pulses are 2+ bilaterally. NEUROLOGIC: Pupils are equal, round, about 4 mm, reactive to light. Extraocular muscle movements. He appears to have trouble with lateral gaze. He has spontaneous movements to his extremities. He is weak in the left upper extremity in particular. SKIN: Very poor turgor without overt cellulitis or rash in the areas that I could examine. He does have scaling rash to the lower extremities and some onychomycosis. PSYCHIATRIC: Otherwise his mood and affect appeared normal and appropriate. LABORATORY DATA: From my review are as follows: Admission white cell count 11,300; hemoglobin 14.1; hematocrit 43.2; platelet count 479. INR was 1.24. D-dimer 4762. ABG today shows a pH of 7.32, pCO2 of 52, pO2 of 127 that was on 60% FiO2. Serum sodium 145, potassium 4.8, chloride 102, bicarbonate 24, BUN 21, creatinine 0.6, and glucose 122. Lactic acid level was within normal limits. Ferritin was up at 1110. LDH was 329. CRP was 10.0. Procalcitonin 0.22. So, his CRP level was 10.0 and procalcitonin 0.22. Urinalysis was negative for nitrites and leukocyte esterase with 4 white cell count per high power field and was his coronavirus PCR was negative on initial test in the Emergency Room. Two sets of blood cultures, urine cultures, no growth to date. Chest x-ray has been reviewed. I have also reviewed the radiologist's interpretation. I do agree with it, essentially ET tube is in good position, no evidence of an acute pulmonary process. ASSESSMENT: 1. Acute hypoxemic respiratory failure, on mechanical ventilatory support. 2. Systemic inflammatory response syndrome, possible early sepsis. 3. Recent bilateral pneumonia with radiographic improvement. 4. Severe malnutrition. 5. Person under investigation for COVID-19 infection. 6. Acute possibly on chronic encephalopathy. 7. Leukocytosis, mild at presentation. 8. Elevated serum D-dimer. 9. Hypercapnic respiratory failure. PLAN: We will keep him on full mechanical ventilator support in the short time and make changes as necessary. I am going to reduce the set rate to 12 per minute. I have dropped the FiO2 to 40%. I have reduced the PEEP to 8. We will begin spontaneous breathing assessment trials as early as tomorrow. Ventilator-associated pneumonia bundle has been introduced. Oxygen will be weaned to keep sats greater than or equal to about 92-96%. I have discussed with the Infectious Disease and we will repeat the COVID-19 test as the pretest clinical suspicion is on the high side. Aspiration precautions of course will be maintained. Bronchodilators will be on a p.r.n. basis with pulmonary hygiene per respiratory therapy. We will follow the tracheal aspirate and see if anything grows. I will defer to Infectious Disease team for broad-spectrum antibiotic therapy. Would agree with empiric coverage right now. He is appropriately on GI and DVT prophylaxis. Electrolytes are monitored and corrected as necessary. Enteral nutrition will be the feeding modality of choice. Flu and pneumonia vaccination will be addressed per protocol. I will defer to the attending for further consultation. Thank you very much for the consult. We will follow along and make further recommendations as picture progresses/becomes clearer. At this time, I spent about 35-40 minutes of critical care time without overlap and excluding any procedural time that may be necessary. JOB# [id number] XUAN/GARY GUPTA
[2019-11-21] MEDS: FAMOTIDINE 20 MG/2 ML INJ IV SCH (22:29)
[2019-11-22 04:05] LABS: ABG Base Excess -0.2 mmol/L (-2.0-3.0); ABG HCO3 25.3 mmol/L (20.0-26.0); ABG Methemoglobin 0.6 % (0.0-1.5); ABG Oxygen Saturation 98.7 % (95.0-99.0); ABG PH 7.369 pH Units (7.350-7.450); ABG PO2 140.4 mm Hg (80.0-90.0)
--- NOTE | 2019-11-22 04:14 | XRay Report ---
CHEST 1 VIEW, 11/22/2019 2:22 AM CLINICAL INFORMATION/INDICATION: Respiratory failure COMPARISON: Chest radiograph, 11/21/2019 at 2:36 AM FINDINGS: SUPPORT DEVICES: Endotracheal tube projects in similar position. HEART: The cardiac silhouette is normal in size. LUNGS/PLEURA: There has been interval development of a small right pleural effusion. The left lung re marcial grossly clear. No pneumothorax is visualized. ADDITIONAL FINDINGS: No additional acute findings. IMPRESSION: 1. Interval development of small right pleural effusion. Signer Name: Yanci Gómez MD Signed: 11/22/2019 4:09 AM Workstation Name: [id number]
[2019-11-22 06:13] LABS: Basophils % (Auto) 0.4 % (0.0-1.8); Hematocrit 32.7 % (35.5-45.6); Hemoglobin 10.8 gm/dl (11.8-15.2); Lymphocytes # (Auto) 1.4 K/mm3 (1.2-5.4); Lymphocytes % (Auto) 13.5 % (13.4-35.0); Mean Corpuscular HGB Conc 33 % (32-34); Mean Corpuscular Volume 95 fl (84-94); Monocytes % (Auto) 9.7 % (0.0-7.3); Platelet Count 343 K/mm3 (140-440); Red Blood Count 3.45 M/mm3 (3.65-5.03); Red Cell Distribution Width 15.6 % (13.2-15.2)
[2019-11-22 06:34] LABS: Albumin 2.3 g/dL (3.9-5); BUN/Creatinine Ratio 48; Blood Urea Nitrogen 57 mg/dL (9-20); Calcium 8.6 mg/dL (8.4-10.2); Hemolysis Index 186
[2019-11-22 06:44] LABS: Alanine Aminotransferase 19 units/L (7-56)
[2019-11-22] MEDS: VANCOMYCIN 1,250 MG in SODIUM CHLORIDE 0.9% 250ML 250 ML IV SCH ×2 (06:50→18:40)
--- NOTE | 2019-11-22 07:16 | Progress Note ---
Assessment and Plan Acute hypoxemic respiratory failure on MVS SIRS r/o sepsis PUI- COVID: COVID test neg on on 11/07 and 11/19. Recent Bilateral pneumonia: previous CXR with right upper lobe nodular pneumonia. History of Coag-neg Staph bacteremia: TTE with "fine linear ecodensity on TV" Moderate protein calorie malnutrition Acute toxic-metabolic encephalopathy -Continue enoxaparin for VTE prophylaxis- currently has severe thrombocytosis -On Fentanyl infusion, at 1mcg -Coordinate sedation interruption( RN) and SBT( RT) today to optimize chances of success with weaning trial -Goal to liberate from MVS, if his NIF, RSBI, mental status and hemodynamics are acceptable -Once extubated, [employer] evaluation for dysphagia and initiate an oral diet -ABG, CXR prn - continue airborne, droplet and contact isolation for COVID-19 -markedly elevated inflammatory markers. ferritin 1110. D-dimer 4762. CRP 10. LDH 327., repeat testing per ID recs - continue to wean supplemental oxygen for target O2 sat's > 90% - VAP bundle addressed - continue lung protective strategies - continue bronchodilators with pulmonary hygiene per RT -avoid nephrotoxins, - accuchecks with glycemic control per SSI (While critically ill target blood glucose of 140-180 mg/dL; avoid hypoglycemia) - continue to avoid benzodiazepines, reduce the possibility of delirium - prn analgesia per CPOT score - maintenance of sleep-wake cycle, avoid delirium - VTE prophylaxis-Enoxaparin -Stress ulcer prophylaxis- Famotidine - PT/OT/ROM exercises - continue mobility protocol, off loading and skin assessment for pressure ulcer prevention - continue other care per attending / other consultants .... Re-evaluate in am & prn CONDITION: CRITICAL PROGNOSIS: GUARDED CODE STATUS:FULL CODE The high probability of a clinically significant, sudden or life-threatening deterioration of the [respiratory & neurology] system(s) required my full and direct attention, intervention and personal management. The aggregate critical care time was [31] minutes without overlap. Time includes spent on; [x] Data Review and interpretation [x] Patient assessment and monitoring of vital signs [x] Documentation [x] Medication orders and management Subjective Date of service: 11/22/19 Interval history: Follow up for: acute hypoxic respiratory failure on MVS; SIRS r/o sepsis: PUI- COVID; acute toxic-metabolic encephalopathy Seen and examined. Vitals, labs, medications, chart and imaging reviewed. No acute overnight events. Remains on MVS, on Fentanyl infusion. No fevers, no diarrhea or vomiting Objective Vital Signs - 12hr 11/21/19 11/21/19 11/21/19 19:20 19:46 20:00 Temperature 99.3 F Pulse Rate 98 H 100 H Pulse Rate [ 79 96 H From Monitor] Respiratory 18 22 Rate Blood Pressure 121/75 127/90 O2 Sat by Pulse 99 99 99 Oximetry 11/21/19 11/21/19 11/21/19 21:00 21:39 22:00 Temperature Pulse Rate 98 H 92 H 91 H Pulse Rate [ From Monitor] Respiratory 22 22 22 Rate Blood Pressure 114/81 112/79 102/76 O2 Sat by Pulse 99 Oximetry 11/21/19 11/21/19 11/21/19 22:15 23:00 23:15 Temperature Pulse Rate 92 H 99 H Pulse Rate [ 102 H From Monitor] Respiratory 18 22 Rate Blood Pressure 125/79 125/79 O2 Sat by Pulse 100 99 Oximetry 11/22/19 11/22/19 11/22/19 00:00 01:00 02:00 Temperature 98.8 F Pulse Rate 91 H 90 98 H Pulse Rate [ 102 H From Monitor] Respiratory 22 22 19 Rate Blood Pressure 119/83 126/87 133/97 O2 Sat by Pulse 100 99 99 Oximetry 11/22/19 11/22/19 11/22/19 02:25 02:37 03:00 Temperature Pulse Rate 98 H 98 H 95 H Pulse Rate [ 93 H From Monitor] Respiratory 21 23 Rate Blood Pressure 118/80 O2 Sat by Pulse 100 Oximetry 11/22/19 11/22/19 11/22/19 03:56 04:00 05:00 Temperature 99.0 F Pulse Rate 99 H 97 H 97 H Pulse Rate [ From Monitor] Respiratory 22 22 Rate Blood Pressure 128/90 122/85 128/86 O2 Sat by Pulse 97 Oximetry 11/22/19 06:00 Temperature Pulse Rate 96 H Pulse Rate [ 93 H From Monitor] Respiratory 21 Rate Blood Pressure 122/85 O2 Sat by Pulse 100 Oximetry Constitutional: alert, other (mild respiraotry distress, ETT to MVS- 23cm at the lip) Eyes: non-icteric ENT: oropharynx moist, other (NGT in place) Neck: supple, no lymphadenopathy Effort: normal Ascultation: Bilateral: diminished breath sounds, rhonchi Cardiovascular: regular rate and rhythm, other (S1,S2, no murmurs, no gallops, no rubs) Gastrointestinal: normoactive bowel sounds, soft, non-tender Integumentary: normal Extremities: no cyanosis, no edema Neurologic: other (awake) Psychiatric: other CBC and BMP: 11/22/19 05:00 11/22/19 05:00 ABG, PT/INR, D-dimer: ABG ABG pH 7.369 pH Units (7.350-7.450) 11/22/19 03:29 ABG pCO2 45.0 mm Hg 11/22/19 03:29 ABG pO2 140.4 mm Hg (80.0-90.0) H 11/22/19 03:29 ABG O2 Saturation 98.7 % (95.0-99.0) 11/22/19 03:29 PT/INR, D-dimer PT 15.3 Sec. (12.2-14.9) H 11/20/19 14:27 INR 1.24 (0.87-1.13) H 11/20/19 14:27 D-Dimer 4762.24 ng/mlDDU (0-234) H 11/20/19 15:16 Abnormal lab findings: Abnormal Labs 11/20/19 11/20/19 11/20/19 14:19 14:27 14:27 WBC 11.3 H RBC Hgb Hct MCV RDW 15.5 H Plt Count 479 H Lymph % (Auto) 10.8 L Calvert % (Auto) Calvert # Seg Neutrophils % 82.8 H Seg Neutrophils # 9.4 H PT 15.3 H INR 1.24 H D-Dimer ABG pH ABG pO2 ABG HCO3 ABG Hemoglobin VBG pH Potassium BUN 21 H Creatinine 0.6 L Glucose 128 H POC Glucose Ferritin AST Lactate Dehydrogenase C-Reactive Protein Total Protein 9.0 H Albumin 2.9 L 11/20/19 11/20/19 11/20/19 14:36 15:16 15:16 WBC RBC Hgb Hct MCV RDW Plt Count Lymph % (Auto) Calvert % (Auto) Calvert # Seg Neutrophils % Seg Neutrophils # PT INR D-Dimer 4762.24 H ABG pH ABG pO2 ABG HCO3 ABG Hemoglobin VBG pH 7.477 H Potassium BUN Creatinine Glucose 122 H POC Glucose Ferritin AST Lactate Dehydrogenase 329 H C-Reactive Protein 10.00 H Total Protein Albumin 11/20/19 11/21/19 11/21/19 15:16 03:55 12:18 WBC RBC Hgb Hct MCV RDW Plt Count Lymph % (Auto) Calvert % (Auto) Calvert # Seg Neutrophils % Seg Neutrophils # PT INR D-Dimer ABG pH 7.323 L ABG pO2 127.0 H ABG HCO3 26.1 H ABG Hemoglobin 12.2 L VBG pH Potassium BUN Creatinine Glucose POC Glucose 108 H Ferritin 1110.0 H AST Lactate Dehydrogenase C-Reactive Protein Total Protein Albumin 11/21/19 11/22/19 11/22/19 17:47 00:00 03:29 WBC RBC Hgb Hct MCV RDW Plt Count Lymph % (Auto) Calvert % (Auto) Calvert # Seg Neutrophils % Seg Neutrophils # PT INR D-Dimer ABG pH ABG pO2 140.4 H ABG HCO3 ABG Hemoglobin 11.8 L VBG pH Potassium BUN Creatinine Glucose POC Glucose 114 H 114 H Ferritin AST Lactate Dehydrogenase C-Reactive Protein Total Protein Albumin 11/22/19 11/22/19 05:00 05:00 WBC RBC 3.45 L Hgb 10.8 L D Hct 32.7 L D MCV 95 H RDW 15.6 H Plt Count Lymph % (Auto) Calvert % (Auto) 9.7 H Calvert # 1.0 H Seg Neutrophils % 76.4 H Seg Neutrophils # 7.9 H PT INR D-Dimer ABG pH ABG pO2 ABG HCO3 ABG Hemoglobin VBG pH Potassium 5.4 H BUN 57 H Creatinine Glucose 105 H POC Glucose Ferritin AST 43 H Lactate Dehydrogenase C-Reactive Protein Total Protein Albumin 2.3 L Chest x-ray: image reviewed (right lower lobe infiltrate-pleural effusion)
[2019-11-22] MEDS ORDERED: SIMPLE SYRUP 15 ML FEEDTUBE PRN ×2 (09:00)
[2019-11-22] MEDS ORDERED: SODIUM BICARBONATE 325 MG TAB FEEDTUBE PRN (09:00)
[2019-11-22] MEDS ORDERED: LIPASE 10,500/PROTEASE 25,000/AMYLASE 43,750 (UNITS) DR CAP FEEDTUBE PRN (09:00)
[2019-11-22] MEDS: CEFEPIME/NS 2 GM/100 ML 2 GM/100 ML BAG IV SCH ×2 (09:36→21:28)
[2019-11-22] MEDS: HEPARIN 5,000 UNIT/1 ML VIAL SUB-Q SCH ×2 (09:36→21:29)
[2019-11-22] MEDS: FAMOTIDINE 20 MG/2 ML INJ IV SCH ×2 (13:15→21:29)
--- NOTE | 2019-11-22 13:53 | Progress Note ---
Assessment and Plan Cultures: Blood culture 11/23/2019 no growth today Urine culture 11/23/2019 no growth today Assessment: 54 y/o male with history of unknown medical history initially seen by ID during previous admission 11/08/2019 - 11/12/2019, sent to [facility]. Patient is now readmitted 11/20/2019 due to worsening shortness of breath and altered mental status: #SIRS r/o sepsis: better, unclear etiology. UA neg. #R/o COVID: COVID test neg on on 11/07 and 11/19. However, noted markedly elevated inflammatory markers. Ferritin 1110. D-dimer 4762. CRP 10. LDH 327. Noted elevated mild procalcitonin at 0.2. Still high suspicion. #Recent Bilateral pneumonia: previous CXR with right upper lobe nodular pneumonia. #Acute hypoxemic respiratory failure: intubated #History of Coag-neg Staph bacteremia: initially felt to be a contaminant, however TTE with "fine linear ecodensity on TV" ? vegetation vs artefact, recommended LUIS but patient was discharged to hospice. #Severe malnutrition: obtain HIV and CT chest, abdomen and pelvis Recommendations: re-test for COVID-micro lab informed Continue vancomycin with PK consult Continue cefepime 2 gm IV q 12h Stop ceftriaxone repeat TTE - pending CT chest, abd, pelvis F/u HIV poor prognosis Will follow Malou Stone MD Infectious Diseases Local Area Network Administrator [facility] ([facility]) M [phone] O [phone] Subjective Date of service: 11/22/19 Principal diagnosis: r/o COVID Interval history: Remains intubated now on BIPAP no fever, alert on the vent Objective - Exam Narrative Exam: General appearance: Alert intubated cachectic Eyes: Pupils equal reactive light accommodation nonicteric conjunctivae LUIS in place HENT: Atraumatic; oropharynx limited ETT Lungs: kimberlyn scattered rhonchi CV: RRR Abdomen: Soft Extremities: Cachectic Skin: No rash. Psych: Nonagitated Neuro: alert on the ventilator not following commands - Constitutional Vitals: Vital Signs Temp Pulse Resp BP Pulse Ox 98.2 F 102 H 19 151/102 95 11/22/19 08:00 11/22/19 13:00 11/22/19 13:00 11/22/19 13:00 11/22/19 13:00 Temperature -Last 24 Hours Temperature 98.2 F Temperature 99.0 F Temperature 98.8 F Temperature 98.8 F Temperature 99.3 F Temperature 98.6 F - Labs CBC & Chem 7: 11/22/19 05:00 11/22/19 05:00 Labs: Abnormal lab results 11/21/19 11/22/19 11/22/19 Range/Units 17:47 00:00 03:29 RBC (3.65-5.03) M/mm3 Hgb (11.8-15.2) gm/dl Hct (35.5-45.6) % MCV (84-94) fl RDW (13.2-15.2) % Titus % (Auto) (0.0-7.3) % Titus # (0.0-0.8) K/mm3 Seg Neutrophils % (40.0-70.0) % Seg Neutrophils # (1.8-7.7) K/mm3 ABG pO2 140.4 H (80.0-90.0) mm Hg ABG Hemoglobin 11.8 L (14.0-18.0) gm/dl Potassium (3.6-5.0) mmol/L BUN (9-20) mg/dL Glucose (75-100) mg/dL POC Glucose 114 H 114 H (70-105) AST (5-40) units/L Albumin (3.9-5) g/dL 11/22/19 11/22/19 11/22/19 Range/Units 05:00 05:00 12:07 RBC 3.45 L (3.65-5.03) M/mm3 Hgb 10.8 L D (11.8-15.2) gm/dl Hct 32.7 L D (35.5-45.6) % MCV 95 H (84-94) fl RDW 15.6 H (13.2-15.2) % Titus % (Auto) 9.7 H (0.0-7.3) % Titus # 1.0 H (0.0-0.8) K/mm3 Seg Neutrophils % 76.4 H (40.0-70.0) % Seg Neutrophils # 7.9 H (1.8-7.7) K/mm3 ABG pO2 (80.0-90.0) mm Hg ABG Hemoglobin (14.0-18.0) gm/dl Potassium 5.4 H (3.6-5.0) mmol/L BUN 57 H (9-20) mg/dL Glucose 105 H (75-100) mg/dL POC Glucose 116 H (70-105) AST 43 H (5-40) units/L Albumin 2.3 L (3.9-5) g/dL
--- NOTE | 2019-11-22 17:35 | Progress Note ---
Assessment and Plan - Patient Problems (1) Acute respiratory failure Current Visit: Yes Status: Acute Qualifiers: Respiratory failure complication: hypoxia Qualified Code(s): J96.01 - Acute respiratory failure with hypoxia Plan to address problem: Patient debated and placed on ventilatory support, wean vent as tolerated, sedation holiday, spontaneous breathing trial in a.m., pulmonary team consulted. The high probability of a clinically significant, sudden or life threatening deterioration of the [pulmonary, cardiac, neuro] system(s) required my full and direct attention, intervention and personal management. The aggregate critical care time was [95] minutes. This time is in addition to time spent performing reported procedures but includes the following: [x] Data Review and interpretation [x] Patient assessment and monitoring of vital signs [x] Documentation [x] Medication orders and management (2) Suspected 2019 novel coronavirus infection Current Visit: Yes Status: Acute Plan to address problem: Coronavirus protocol, infectious disease service consulted, pulmonary consulted, coronavirus PCR to be repeated as per ID recommendations. (3) Systemic inflammatory response syndrome (SIRS) Current Visit: Yes Status: Acute Plan to address problem: IV antibiotic therapy, CBC, CMP, chest x-ray, urinalysis, repeat CBC in a.m. (4) Encephalopathy Current Visit: No Status: Acute Plan to address problem: neuro check, aspiration precaution, seizure precautions, supportive care. (5) DVT prophylaxis Current Visit: No Status: Acute Plan to address problem: SCD to bilateral lower extremities while in bed, prophylactic heparin. History Interval history: 54 YO Male HD#3 with Acute Respiratory Failure currently intubated on vent support, SIRS, Encephalopathy. Patient maintained on ventilatory support overnight. Patient undergoing spontaneous breathing trial at time of my evaluation. Mild improvement in patient status overnight. no decompensation overnight. Will wean vent as tolerated. Coronavirus PCR negative. Hospitalist Physical - Constitutional Vitals: Temp Pulse Resp BP Pulse Ox 98.2 F 102 H 19 151/102 97 11/22/19 08:00 11/22/19 13:00 11/22/19 13:00 11/22/19 13:00 11/22/19 13:55 General appearance: Present: mild distress, cachectic, disheveled - EENT Eyes: Present: PERRL ENT: hearing intact - Neck Neck: Present: supple - Respiratory Respiratory: bilateral: diminished - Cardiovascular Rhythm: regular Heart Sounds: Present: S1 & S2 - Abdominal General gastrointestinal: soft, non-tender, non-distended - Integumentary Integumentary: Present: clear, dry, clammy - Neurologic Neurologic: CNII-XII intact, moves all extremities Results - Labs CBC & Chem 7: 11/22/19 05:00 11/22/19 05:00 Labs: Laboratory Last Values WBC 10.4 K/mm3 (4.5-11.0) 11/22/19 05:00 RBC 3.45 M/mm3 (3.65-5.03) L 11/22/19 05:00 Hgb 10.8 gm/dl (11.8-15.2) L D 11/22/19 05:00 Hct 32.7 % (35.5-45.6) L D 11/22/19 05:00 MCV 95 fl (84-94) H 11/22/19 05:00 MCH 31 pg (28-32) 11/22/19 05:00 MCHC 33 % (32-34) 11/22/19 05:00 RDW 15.6 % (13.2-15.2) H 11/22/19 05:00 Plt Count 343 K/mm3 (140-440) 11/22/19 05:00 Lymph % (Auto) 13.5 % (13.4-35.0) 11/22/19 05:00 [place] % (Auto) 9.7 % (0.0-7.3) H 11/22/19 05:00 Eos % (Auto) 0.0 % (0.0-4.3) 11/22/19 05:00 Baso % (Auto) 0.4 % (0.0-1.8) 11/22/19 05:00 Lymph # 1.4 K/mm3 (1.2-5.4) 11/22/19 05:00 [place] # 1.0 K/mm3 (0.0-0.8) H 11/22/19 05:00 Eos # 0.0 K/mm3 (0.0-0.4) 11/22/19 05:00 Baso # 0.0 K/mm3 (0.0-0.1) 11/22/19 05:00 Seg Neutrophils % 76.4 % (40.0-70.0) H 11/22/19 05:00 Seg Neutrophils # 7.9 K/mm3 (1.8-7.7) H 11/22/19 05:00 PT 15.3 Sec. (12.2-14.9) H 11/20/19 14:27 INR 1.24 (0.87-1.13) H 11/20/19 14:27 D-Dimer 4762.24 ng/mlDDU (0-234) H 11/20/19 15:16 ABG pH 7.369 pH Units (7.350-7.450) 11/22/19 03:29 ABG pCO2 45.0 mm Hg 11/22/19 03:29 ABG pO2 140.4 mm Hg (80.0-90.0) H 11/22/19 03:29 ABG HCO3 25.3 mmol/L (20.0-26.0) 11/22/19 03:29 ABG O2 Saturation 98.7 % (95.0-99.0) 11/22/19 03:29 ABG O2 Content 16.4 (0.0-44) 11/22/19 03:29 ABG Base Excess -0.2 mmol/L (-2.0-3.0) 11/22/19 03:29 ABG Hemoglobin 11.8 gm/dl (14.0-18.0) L 11/22/19 03:29 ABG Carboxyhemoglobin 1.1 % (0.0-5.0) 11/22/19 03:29 ABG Methemoglobin 0.6 % (0.0-1.5) 11/22/19 03:29 VBG pH 7.477 (7.320-7.420) H 11/20/19 14:36 Oxyhemoglobin 97.0 % (95.0-99.0) 11/22/19 03:29 FiO2 40 % 11/22/19 03:29 Sodium 144 mmol/L (137-145) 11/22/19 05:00 Potassium 5.4 mmol/L (3.6-5.0) H 11/22/19 05:00 Chloride 105.5 mmol/L (98-107) 11/22/19 05:00 Carbon Dioxide 22 mmol/L (22-30) 11/22/19 05:00 Anion Gap 22 mmol/L 11/22/19 05:00 BUN 57 mg/dL (9-20) H 11/22/19 05:00 Creatinine 1.2 mg/dL (0.8-1.5) D 11/22/19 05:00 Estimated GFR > 60 ml/min 11/22/19 05:00 BUN/Creatinine Ratio 48 % 11/22/19 05:00 Glucose 105 mg/dL (75-100) H 11/22/19 05:00 POC Glucose 116 (70-105) H 11/22/19 12:07 Lactic Acid 1.50 mmol/L (0.7-2.0) 11/20/19 19:11 Calcium 8.6 mg/dL (8.4-10.2) 11/22/19 05:00 Phosphorus 3.90 mg/dL (2.5-4.5) 11/21/19 20:31 Magnesium 2.20 mg/dL (1.7-2.3) 11/20/19 15:16 Ferritin 1110.0 ng/mL (13.0-400.0) H 11/20/19 15:16 Total Bilirubin 0.40 mg/dL (0.1-1.2) 11/22/19 05:00 AST 43 units/L (5-40) H 11/22/19 05:00 ALT 19 units/L (7-56) 11/22/19 05:00 Alkaline Phosphatase 51 units/L (35-129) 11/22/19 05:00 Lactate Dehydrogenase 329 units/L (91-180) H 11/20/19 15:16 Total Creatine Kinase 65 units/L (55-170) 11/20/19 15:16 C-Reactive Protein 10.00 mg/dL (0.00-1.30) H 11/20/19 15:16 Total Protein 8.0 g/dL (6.3-8.2) 11/22/19 05:00 Albumin 2.3 g/dL (3.9-5) L 11/22/19 05:00 Albumin/Globulin Ratio 0.4 % 11/22/19 05:00 Procalcitonin 0.22 ng/mL (<0.15) 11/20/19 15:16 Urine Color Giss[place] (Yellow) 11/20/19 14:20 Urine Turbidity Clear (Clear) 11/20/19 14:20 Urine pH 5.0 (5.0-7.0) 11/20/19 14:20 Ur Specific [place] 1.027 (1.003-1.030) 11/20/19 14:20 Urine Protein 30 mg/dl mg/dL (Negative) 11/20/19 14:20 Urine Glucose (UA) Neg mg/dL (Negative) 11/20/19 14:20 Urine Ketones Neg mg/dL (Negative) 11/20/19 14:20 Urine Blood Sm (Negative) 11/20/19 14:20 Urine Nitrite Neg (Negative) 11/20/19 14:20 Urine Bilirubin Neg (Negative) 11/20/19 14:20 Urine Urobilinogen < 2.0 mg/dL (<2.0) 11/20/19 14:20 Ur Leukocyte Esterase Neg (Negative) 11/20/19 14:20 Urine WBC (Auto) 4.0 /HPF (0.0-6.0) 11/20/19 14:20 Urine RBC (Auto) 16.0 /HPF (0.0-6.0) 11/20/19 14:20 Urine Mucus 3+ /HPF 11/20/19 14:20 Coronavirus (PCR) Negative (Negative) 11/21/19 Unknown Microbiology: Microbiology 11/20/19 Unknown Peripheral/Venous Blood Culture - Preliminary NO GROWTH AFTER 48 HOURS 11/20/19 Unknown Peripheral/Venous Blood Culture - Preliminary NO GROWTH AFTER 48 HOURS 11/20/19 14:20 Urine,[place] Urine Culture - Final NO GROWTH AFTER 48 HOURS [place]/IV: Voiding Method Indwelling Catheter IV Catheter Type [Left Wrist] INT / Saline Lock Active Medications - Current Medications Current Medications: Generic Name Dose Route Start Last Admin Trade Name Freq PRN Reason Stop Dose Admin Albuterol 2.5 mg 11/21/19 16:09 Proventil IH Q4HRT PRN Shortness Of Breath Lipase/Protease/Amylase 1 each 11/22/19 09:00 Pancrekylah Marques 10,500 Unit FEEDTUBE PRN PRN For Clogged Feeding Tube Famotidine 20 mg 11/21/19 12:00 11/22/19 13:15 Pepcid IV 20 mg BID MARY Administration Fentanyl 50 mcg 11/20/19 14:55 Sublimaze IV Q10MIN PRN ANALGESIA Heparin Sodium (Porcine) 5,000 unit 11/20/19 22:00 11/22/19 09:36 Heparin SUB-Q 5,000 unit Q12HR MARY Administration Hydrophilic Ointment 1 applic 11/20/19 14:55 Vaseline Lip Therapy TP Q2HR PRN Dry Lips Fentanyl Citrate 2,000 mcg in 100 mls @ 3.969 mls/hr 11/20/19 15:00 11/22/19 11:50 Fentanyl Drip Premix IV Infused TITR MARY Titration Protocol 1 MCG/KG/HR Midazolam HCl 100 mg/ Sodium 100 mls @ 2 mls/hr 11/20/19 15:00 Chloride IV TITR MARY Protocol 2 MG/HR Cefepime HCl 2 gm in 100 mls @ 200 mls/hr 11/21/19 15:00 11/22/19 09:36 Cefepime/Ns 2 Gm/100 Ml IV 200 mls/hr Q12HR MARY Administration Protocol Vancomycin HCl 1,250 mg/ 275 mls @ 166.667 mls/hr 11/21/19 17:00 11/22/19 06:50 Sodium Chloride IV 166.667 mls/hr Q12H MARY Administration Midazolam HCl 2 mg 11/20/19 14:55 Versed IV Q10MIN PRN Sedation Multi-Ingred Cream/Lotion/Oil/Oint 1 applic 11/20/19 14:55 Artificial Tears Ophth Oint OU Q4HR PRN Dry Eye(s) Simple Syrup 15 ml 11/22/19 09:00 Simple Syrup FEEDTUBE PRN PRN Hypoglycemia Simple Syrup 30 ml 11/22/19 09:00 Simple Syrup FEEDTUBE PRN PRN Hypoglycemia Sodium Bicarbonate 325 mg 11/22/19 09:00 Sodium Bicarbonate FEEDTUBE PRN PRN For Clogged Feeding Tube Sodium Chloride 10 ml 11/20/19 22:00 11/22/19 06:50 Sodium Chloride Flush Syringe 10 Ml IV 10 ml BID MARY Administration Sodium Chloride 10 ml 11/20/19 15:22 11/22/19 09:36 Sodium Chloride Flush Syringe 10 Ml IV 10 ml PRN PRN Administration LINE FLUSH Nutrition/Malnutrition Assess - Dietary Evaluation Nutrition/Malnutrition Findings: Nutrition Notes Start: 11/21/19 08:43 Freq: Status: Active Protocol: Document 11/22/19 08:23 LP (Rec: 11/22/19 08:33 LP [email or web address]) Nutrition Notes Need for Assessment generated from: MD Order Initial or Follow up Reassessment Current Diagnosis Decubitus(Pressure Ulcer), Respiratory Failure Other Pertinent Diagnosis SIRS, Encephalopathy, sacral and R buttock wound Current Diet NPO Labs/Tests K 5.4 Pertinent Medications Reviewed Height 6 ft Weight 79.379 kg [place] Body Weight (kg) 80.90 BMI 23.7 Weight Status Appropriate Subjective/Other Information Consult for TF. Burn Absent Trauma Absent GI Symptoms None Current % PO Negligible Minimum of two criteria No physical signs of malnutrition #2 Nutrition Diagnosis Increased nutrient needs ( specify in comment below) Diagnosis Progress(for reassessment Continues documentation) #1 Nutrition Diagnosis Inadequate oral intake Diagnosis Progress(for reassessment Continues documentation) Is patient on ventilator? Yes Is Patient Ambulatory and/or Out of Bed No REE-([place]-confined to bed) 2021.192 Calculation Used for Recommendations [facility] Additional Notes Protein needs are 95-159g (1.2 -2g/kg) Fluid needs are 1ml/kcal Nutrition Intervention Change Diet Order: TF Nutrition Support: Change to [place] at 46ml/hr Flush with 200ml q4h Kcal 1,987 Protein (gm) 89 Fluid (mL) 803 Goal #1 Meet at least 80% of kcal and protein needs Goal #2 Wound healing Anticipated Discharge Needs: Unable to determine at this time Follow-Up By: 11/26/19 Additional Comments Follow for TF start and tolerance
--- NOTE | 2019-11-23 04:57 | XRay Report ---
CHEST 1 VIEW, 11/23/2019 4:22 AM CLINICAL INFORMATION/INDICATION: Respiratory failure COMPARISON: 11/22/2019 at 3:07 AM FINDINGS: SUPPORT DEVICES: None. HEART: The cardiac silhouette is normal in size. LUNGS/PLEURA: Trace right pleural effusion is unchanged. No confluent consolidation is visualized. ADDITIONAL FINDINGS: No additional acute findings. IMPRESSION: 1. Stable trace right pleural effusion. Signer Name: Yanci Gómez MD Signed: 11/23/2019 4:53 AM Workstation Name: [id number]
[2019-11-23 08:55] LABS: BUN/Creatinine Ratio 55; Blood Urea Nitrogen 44 mg/dL (9-20); Hemolysis Index 20
--- NOTE | 2019-11-23 08:56 | Cat Scan Report ---
CT chest, abdomen, and pelvis without contrast INDICATION : fever unknown origin severe weight loss. TECHNIQUE: Noncontrast technique was performed. All CT scans at this location are performed using C T dose reduction for ALARA by means of automated exposure control. COMPARISON: None FINDINGS: Chest: There is patchy consolidation in the lungs greatest in the left lower lobe. There are also ca vitary lesions throughout the lungs (for example there is a right upper lobe lesion measuring 1.4 cm on image #28 of series #2). Mild underlying emphysema is present. No appreciable pleural effusion elvis ntified. There are shotty mediastinal lymph nodes which are likely reactive. Her size is normal. Mild atherosclerotic disease is present in the thoracic aorta. No acute osseous abnormality. Abdomen/pelvis: The liver, gallbladder, spleen, pancreas, adrenals, and proximal GI tract appear unr emarkable. There is punctate nonobstructive nephrolithiasis in the kidneys. Urinary bladder is partially collapsed with a Buchanan catheter in place. Prostate is grossly unremarkab le. No pelvic free fluid identified. No gross acute colonic abnormality identified. Old posttraumatic change is seen involving the left iliac wing, otherwise no acute osseous abnormality. IMPRESSION: 1. Cavitary lung disease and left basilar consolidation as outlined above. 2. No gross acute abnormality within the abdomen within the constraints of limited noncontrast techni que. Signer Name: Aamir Marshall MD Signed: 11/23/2019 8:51 AM Workstation Name: [id number]
[2019-11-23] MEDS: CEFEPIME/NS 2 GM/100 ML 2 GM/100 ML BAG IV SCH ×2 (10:17→21:35)
[2019-11-23] MEDS: FAMOTIDINE 20 MG/2 ML INJ IV SCH ×2 (10:18→21:36)
[2019-11-23] MEDS: HEPARIN 5,000 UNIT/1 ML VIAL SUB-Q SCH ×2 (10:18→21:37)
--- NOTE | 2019-11-23 12:02 | Progress Note ---
Assessment and Plan Acute hypoxemic respiratory failure, on mechanical ventilatory support. Systemic inflammatory response syndrome, possible early sepsis. Recent bilateral pneumonia with radiographic improvement. Person under investigation for COVID-19 infection. Acute possibly on chronic encephalopathy. Leukocytosis, mild at presentation. Elevated serum D-dimer. Hypercapnic respiratory failure. PUI- COVID: COVID test neg on on 11/07 and 11/19. Moderate protein calorie malnutrition Acute toxic-metabolic encephalopathy - observe in ICU overnight - continue aspiration precautions - get ORIENTOR evaluation and advance diet as tolerated - place NGT otherwise - continue enoxaparin for VTE prophylaxis (severe thrombocytosis) - ABG, CXR prn at this point - continue airborne, droplet and contact isolation for COVID-19 (markedly elevated inflammatory markers) - continue to wean supplemental oxygen for target O2 sat's > 90% - continue bronchodilators with pulmonary hygiene per RT - avoid nephrotoxins, - accuchecks with glycemic control per SSI (While critically ill target blood glucose of 140-180 mg/dL; avoid hypoglycemia) - continue to avoid benzodiazepines, reduce the possibility of delirium - prn analgesia per CPOT score - maintenance of sleep-wake cycle, avoid delirium - VTE prophylaxis-Enoxaparin - Stress ulcer prophylaxis- Famotidine - PT/OT/ROM exercises - continue mobility protocol, off loading and skin assessment for pressure ulcer prevention - continue other care per attending / other consultants .... Re-evaluate in am & prn CONDITION: FAIR PROGNOSIS: GUARDED CODE STATUS:FULL CODE I have spent ( >35 ) minutes with the patient w/ >50% of the time spent counseling and/or coordinating care for this patient. Counseling topics and/or how time was spent coordinating patient's care is outlined in the impression and plan above. Subjective Date of service: 11/23/19 Principal diagnosis: Ac. hypoxemic resp failure; SIRS; Elijah. PNA; [id number] infection; Autism Interval history: Patient is seen today for: Ac. hypoxemic resp failure; SIRS; Elijah. PNA; [id number] infection; Autism; Acute toxic-metabolic encephalopathy Seen and examined at bedside; 24hour events reviewed; nursing and respiratory care staff consulted; no adverse overnight events reported to me; resting in bed; + intermittent agitation; denies chest pains; No N/V/F/C Objective Vital Signs - 12hr 05/11/23/19 11/23/19 01:00 02:00 03:00 Temperature Pulse Rate 77 63 65 Pulse Rate [ From Monitor] Respiratory 14 11 L 9 L Rate Blood Pressure 141/95 132/86 130/92 O2 Sat by Pulse 100 100 100 Oximetry 11/23/19 11/23/19 11/23/19 03:36 04:00 05:00 Temperature 98.8 F Pulse Rate 64 66 Pulse Rate [ From Monitor] Respiratory 11 L 12 Rate Blood Pressure 133/98 145/91 O2 Sat by Pulse Oximetry 11/23/19 11/23/19 11/23/19 06:00 07:00 08:00 Temperature 97.4 F L Pulse Rate 80 71 87 Pulse Rate [ 89 From Monitor] Respiratory 14 15 24 Rate Blood Pressure 147/99 156/92 153/96 O2 Sat by Pulse 98 83 L 81 L Oximetry 11/23/19 11/23/19 11/23/19 08:55 09:00 10:00 Temperature Pulse Rate 78 88 Pulse Rate [ From Monitor] Respiratory 16 15 Rate Blood Pressure 170/104 160/99 O2 Sat by Pulse 100 Oximetry 11/23/19 11:00 Temperature Pulse Rate 87 Pulse Rate [ From Monitor] Respiratory 21 Rate Blood Pressure 158/104 O2 Sat by Pulse 100 Oximetry Constitutional: alert, appears uncomfortable Eyes: non-icteric ENT: oropharynx moist, other (extubated) Neck: supple, no lymphadenopathy Effort: normal Ascultation: Bilateral: diminished breath sounds, rhonchi Percussion: Bilateral: not dull Cardiovascular: regular rate and rhythm, other (S1,S2, no murmurs, no gallops, no rubs) Gastrointestinal: normoactive bowel sounds, soft, non-tender, non-distended Integumentary: rash (xeroderma) Extremities: no cyanosis, no edema, pulses normal, no ischemia or petechiae Neurologic: non-focal exam (grossly), pupils equal and round, CN II-XII normal, other (awake) Psychiatric: other CBC and BMP: 11/22/19 05:00 11/24/19 05:24 ABG, PT/INR, D-dimer: ABG ABG pH 7.369 pH Units (7.350-7.450) 11/22/19 03:29 ABG pCO2 45.0 mm Hg 11/22/19 03:29 ABG pO2 140.4 mm Hg (80.0-90.0) H 11/22/19 03:29 ABG O2 Saturation 98.7 % (95.0-99.0) 11/22/19 03:29 PT/INR, D-dimer PT 15.3 Sec. (12.2-14.9) H 11/20/19 14:27 INR 1.24 (0.87-1.13) H 11/20/19 14:27 D-Dimer 4762.24 ng/mlDDU (0-234) H 11/20/19 15:16 Abnormal lab findings: Abnormal Labs 11/20/19 11/20/19 11/20/19 14:19 14:27 14:27 WBC 11.3 H RBC Hgb Hct MCV RDW 15.5 H Plt Count 479 H Lymph % (Auto) 10.8 L [place] % (Auto) [place] # Seg Neutrophils % 82.8 H Seg Neutrophils # 9.4 H PT 15.3 H INR 1.24 H D-Dimer ABG pH ABG pO2 ABG HCO3 ABG Hemoglobin VBG pH Sodium Potassium Chloride BUN 21 H Creatinine 0.6 L Glucose 128 H POC Glucose Ferritin AST Lactate Dehydrogenase C-Reactive Protein Total Protein 9.0 H Albumin 2.9 L Vancomycin Trough 11/20/19 11/20/19 11/20/19 14:36 15:16 15:16 WBC RBC Hgb Hct MCV RDW Plt Count Lymph % (Auto) [place] % (Auto) [place] # Seg Neutrophils % Seg Neutrophils # PT INR D-Dimer 4762.24 H ABG pH ABG pO2 ABG HCO3 ABG Hemoglobin VBG pH 7.477 H Sodium Potassium Chloride BUN Creatinine Glucose 122 H POC Glucose Ferritin AST Lactate Dehydrogenase 329 H C-Reactive Protein 10.00 H Total Protein Albumin Vancomycin Trough 11/20/19 11/21/19 11/21/19 15:16 03:55 12:18 WBC RBC Hgb Hct MCV RDW Plt Count Lymph % (Auto) [place] % (Auto) [place] # Seg Neutrophils % Seg Neutrophils # PT INR D-Dimer ABG pH 7.323 L ABG pO2 127.0 H ABG HCO3 26.1 H ABG Hemoglobin 12.2 L VBG pH Sodium Potassium Chloride BUN Creatinine Glucose POC Glucose 108 H Ferritin 1110.0 H AST Lactate Dehydrogenase C-Reactive Protein Total Protein Albumin Vancomycin Trough 11/21/19 11/22/19 11/22/19 17:47 00:00 03:29 WBC RBC Hgb Hct MCV RDW Plt Count Lymph % (Auto) [place] % (Auto) [place] # Seg Neutrophils % Seg Neutrophils # PT INR D-Dimer ABG pH ABG pO2 140.4 H ABG HCO3 ABG Hemoglobin 11.8 L VBG pH Sodium Potassium Chloride BUN Creatinine Glucose POC Glucose 114 H 114 H Ferritin AST Lactate Dehydrogenase C-Reactive Protein Total Protein Albumin Vancomycin Trough 11/22/19 11/22/19 11/22/19 05:00 05:00 12:07 WBC RBC 3.45 L Hgb 10.8 L D Hct 32.7 L D MCV 95 H RDW 15.6 H Plt Count Lymph % (Auto) [place] % (Auto) 9.7 H [place] # 1.0 H Seg Neutrophils % 76.4 H Seg Neutrophils # 7.9 H PT INR D-Dimer ABG pH ABG pO2 ABG HCO3 ABG Hemoglobin VBG pH Sodium Potassium 5.4 H Chloride BUN 57 H Creatinine Glucose 105 H POC Glucose 116 H Ferritin AST 43 H Lactate Dehydrogenase C-Reactive Protein Total Protein Albumin 2.3 L Vancomycin Trough 11/23/19 11/23/19 11/23/19 00:14 04:37 05:47 WBC RBC Hgb Hct MCV RDW Plt Count Lymph % (Auto) [place] % (Auto) [place] # Seg Neutrophils % Seg Neutrophils # PT INR D-Dimer ABG pH ABG pO2 ABG HCO3 ABG Hemoglobin VBG pH Sodium Potassium Chloride BUN Creatinine Glucose POC Glucose 114 H 110 H Ferritin AST Lactate Dehydrogenase C-Reactive Protein Total Protein Albumin Vancomycin Trough 23.5 H 11/23/19 08:00 WBC RBC Hgb Hct MCV RDW Plt Count Lymph % (Auto) [place] % (Auto) [place] # Seg Neutrophils % Seg Neutrophils # PT INR D-Dimer ABG pH ABG pO2 ABG HCO3 ABG Hemoglobin VBG pH Sodium 149 H Potassium Chloride 112.8 H BUN 44 H Creatinine Glucose POC Glucose Ferritin AST Lactate Dehydrogenase C-Reactive Protein Total Protein Albumin Vancomycin Trough Chest x-ray: image reviewed Allied health notes reviewed: nursing
--- NOTE | 2019-11-23 13:55 | Consultation ---
PULMONARY CRITICAL CARE CONSULTATION CONSULTING PHYSICIAN: Dr. Moctezuma. REASON FOR CONSULTATION: Acute hypoxemic respiratory failure, on mechanical ventilatory support. CHIEF COMPLAINT AND HISTORY OF PRESENT ILLNESS: The patient is a 54-year-old -[place] male with past medical history significant amongst other things for severe debility, presumably some form of prior cerebrovascular accident and severe malnutrition, who was brought into the Emergency Room by, I believe the staff at the personal long-term secondary to shortness of breath and confusion. In the ER, he was hypoxemic. He was encephalopathic. He was intubated in the Emergency Room for respiratory support. He was diagnosed with systemic inflammatory response syndrome and was admitted with a suspicion for COVID-19 infection. We are asked to assist with management. When I stopped by to see him, he remained on mechanical ventilator. When asked if he could hear me, he nodded his head yes. He denied any pain at that time. However, his history was definitely limited by the fact that he was intubated. I do not have any history of vomiting or overt aspiration. It is unclear if he was having any fevers or chills at the intermediate; however, since he has been over here, he has been with a T-max of 100.8 degrees Fahrenheit. The patient presumably is not a current smoker or drinker; however, remote history is unknown. This unfortunately is as much of the history of presentation as I have. PAST MEDICAL HISTORY: Debility, severe malnutrition. PAST SURGICAL HISTORY: Unknown. MEDICATIONS: He was on at the time I stopped by to see him were reviewed, pertinent medications include the following, cefepime 2 g IV q.12 hours, Pepcid 20 mg IV b.i.d., fentanyl drip was going at 2 mcg/kg per hour, heparin 5000 units subcutaneous q.12 hours, Versed 2 mg per hour drip, and vancomycin 1.25 g IV q.12 hours. ALLERGIES: No known drug allergies. DIET: Thin, cachectic gentleman, acute weight loss or gain history is unknown. FAMILY AND SOCIAL HISTORY: Resident of a personal long-term. No current alcohol, tobacco, or illicit drug use or abuse. Remote history is unknown. Family history is otherwise unknown. REVIEW OF SYSTEMS: Difficult to obtain secondary to the patient's medical and mental condition. Since he has been here, no gross hematochezia or melena, no gross hematuria, no hematemesis, no bloody tracheal secretions, no witnessed seizures. Review of systems otherwise unobtainable. PHYSICAL EXAMINATION: VITAL SIGNS: On examination at presentation in the Emergency Room, he was febrile, temperature 100.8 degrees Fahrenheit, pulse of 137, respiratory rate as high as 51, blood pressure 156/119, O2 sats 100%, inspired oxygen concentration at that time was not recorded. When I stopped by to see him, his O2 sats were 98% that was on the assist control mode of ventilation, tidal volumes of 450, rate of 20, PEEP of 10 at that time and 50% FiO2. GENERAL: He is a middle-aged, chronically ill-looking -[place] male. Normocephalic, on the mechanical ventilator with mildly increased respiratory effort at rest. HEAD, EYES, EARS, NOSE AND THROAT: Anicteric. No conjunctival erythema. Oropharynx was dry. Endotracheal tube was taped at the lips around 23-24 cm. NECK: Grossly, there were no palpable lymph nodes in the supraclavicular or submandibular lymph node chains. He had temporal wasting bilaterally. LUNGS: Auscultation of both lung morley significant for diminished bilateral breath sounds, scant rhonchi, no wheezing. HEART: Heart sounds 1 and 2 are heard at the time of my evaluation, regular, tachycardia without overt rubs or murmurs. ABDOMEN: Soft, flat. Bowel sounds are positive, nontender, no palpable hepatosplenomegaly. EXTREMITIES: Without overt digital clubbing, no cyanosis, no pedal edema. Pedal pulses are 2+ bilaterally. NEUROLOGIC: Pupils are equal, round, about 4 mm, reactive to light. Extraocular muscle movements. He appears to have trouble with lateral gaze. He has spontaneous movements to his extremities. He is weak in the left upper extremity in particular. SKIN: Very poor turgor without overt cellulitis or rash in the areas that I could examine. He does have scaling rash to the lower extremities and some onychomycosis. PSYCHIATRIC: Otherwise his mood and affect appeared normal and appropriate. LABORATORY DATA: From my review are as follows: Admission white cell count 11,300; hemoglobin 14.1; hematocrit 43.2; platelet count 479. INR was 1.24. D-dimer 4762. ABG today shows a pH of 7.32, pCO2 of 52, pO2 of 127 that was on 60% FiO2. Serum sodium 145, potassium 4.8, chloride 102, bicarbonate 24, BUN 21, creatinine 0.6, and glucose 122. Lactic acid level was within normal limits. Ferritin was up at 1110. LDH was 329. CRP was 10.0. Procalcitonin 0.22. DICTATION ENDS HERE JOB# [id number] XUAN/GARY GUPTA
--- NOTE | 2019-11-23 15:18 | Progress Note ---
Assessment and Plan Cultures: Blood culture 11/23/2019 no growth today Urine culture 11/23/2019 no growth today Assessment: 54 y/o male with history of unknown medical history initially seen by ID during previous admission 11/08/2019 - 11/12/2019, sent to [facility]. Patient is now readmitted 11/20/2019 due to worsening shortness of breath and altered mental status: #SIRS r/o sepsis: better, unclear etiology. UA neg. #R/o COVID: COVID test neg on on 11/07 and 11/19 and 11/20. However, noted markedly elevated inflammatory markers. Ferritin 1110. D-dimer 4762. CRP 10. LDH 327. Noted elevated mild procalcitonin at 0.2. Still high suspicion. #Non resolving Bilateral pneumonia: previous CXR with right upper lobe nodular pneumonia. CT chest with patchy consolidation in the lungs greatest in the left lower lobe and cavitary lesions throughout the lungs ?TB #Acute hypoxemic respiratory failure: extubated #History of Coag-neg Staph bacteremia: initially felt to be a contaminant, however TTE with "fine linear ecodensity on TV" ? vegetation vs artefact, recommended LUIS but patient was discharged to hospice. #Severe malnutrition/weight loss: obtain HIV and CT chest, abdomen and pelvis Recommendations: airborne isolation check AFB x 3 check quantiferon TB gold Stop vancomycin with PK consult Continue cefepime 2 gm IV q 12h repeat TTE - pending F/u HIV poor prognosis Will follow Malou Stone MD Infectious Diseases [employer] [facility] M [phone] O [phone] Subjective Date of service: 11/23/19 Principal diagnosis: r/o COVID Interval history: patient extubated, no fever Objective - Exam Narrative Exam: General appearance: Alert cachectic Eyes: Pupils equal reactive light accommodation nonicteric conjunctivae HENT: Atraumatic; oropharynx limited Lungs: kimberlyn scattered rhonchi CV: RRR Abdomen: Soft Extremities: Cachectic Skin: No rash. Psych: Nonagitated Neuro: alert - Constitutional Vitals: Vital Signs Temp Pulse Resp BP Pulse Ox 97.8 F 89 20 143/98 99 11/23/19 12:00 11/23/19 12:00 11/23/19 12:11/23/19 12:00 11/23/19 12:00 Temperature -Last 24 Hours Temperature 97.8 F Temperature 97.4 F Temperature 98.8 F Temperature 98.4 F Temperature 97.6 F - Labs CBC & Chem 7: 11/22/19 05:00 11/23/19 08:00 Labs: Abnormal lab results 11/23/19 11/23/19 11/23/19 Range/Units 00:14 04:37 05:47 Sodium (137-145) mmol/L Chloride (98-107) mmol/L BUN (9-20) mg/dL POC Glucose 114 H 110 H (70-105) Vancomycin Trough 23.5 H (5.0-20.0) ug/mL 11/23/19 Range/Units 08:00 Sodium 149 H (137-145) mmol/L Chloride 112.8 H (98-107) mmol/L BUN 44 H (9-20) mg/dL POC Glucose (70-105) Vancomycin Trough (5.0-20.0) ug/mL
--- NOTE | 2019-11-23 20:20 | Progress Note ---
Assessment and Plan - Patient Problems (1) Acute respiratory failure Current Visit: Yes Status: Acute Qualifiers: Respiratory failure complication: hypoxia Qualified Code(s): J96.01 - Acute respiratory failure with hypoxia Plan to address problem: Patient successfully weaned from ventilatory support. Patient has episodes of dysphagia, and at this time is at high risk for pulmonary decompensation. We will continue to monitor in intensive care unit overnight. If patient continues to progresswe will downgrade in a.m. The high probability of a clinically significant, sudden or life threatening deterioration of the [pulmonary, cardiac, neuro] system(s) required my full and direct attention, intervention and personal management. The aggregate critical care time was [95] minutes. This time is in addition to time spent performing reported procedures but includes the following: [x] Data Review and interpretation [x] Patient assessment and monitoring of vital signs [x] Documentation [x] Medication orders and management (2) Suspected 2019 novel coronavirus infection Current Visit: Yes Status: Acute Plan to address problem: Coronavirus PCR is negative. (3) Systemic inflammatory response syndrome (SIRS) Current Visit: Yes Status: Acute Plan to address problem: IV antibiotic therapy, CBC, CMP, chest x-ray, urinalysis, repeat CBC in a.m. (4) Encephalopathy Current Visit: No Status: Acute Plan to address problem: neuro check, aspiration precaution, seizure precautions, supportive care. (5) DVT prophylaxis Current Visit: No Status: Acute Plan to address problem: SCD to bilateral lower extremities while in bed, prophylactic heparin. History Interval history: 54 YO Male HD#4 with Acute Respiratory Failure. Pt successfully extubated. SIRS, Encephalopathy are both improved. Coronavirus PCR is negative. Patient has episodes where he yells at nursing staff. Patient is resting the time of my evaluation. Patient has dysphasia and is high risk for aspiration. Continue close monitoring. If patient continues to progress will downgrade in a.m. Hospitalist Physical - Constitutional Vitals: Temp Pulse Resp BP Pulse Ox 97.3 F L 82 20 146/95 98 11/23/19 20:00 11/23/19 18:00 11/23/19 18:00 11/23/19 18:11/23/19 19:56 General appearance: Present: mild distress, cachectic, disheveled - EENT Eyes: Present: PERRL, EOM intact - Neck Neck: Present: supple - Respiratory Respiratory: bilateral: diminished - Cardiovascular Rhythm: regular Heart Sounds: Present: S1 & S2 Peripheral Pulses: within normal limits - Abdominal General gastrointestinal: soft, non-tender, non-distended - Integumentary Integumentary: Present: clear, dry - Psychiatric Psychiatric: cooperative - Neurologic Neurologic: CNII-XII intact Results - Labs CBC & Chem 7: 11/22/19 05:00 11/23/19 08:00 Labs: Laboratory Last Values WBC 10.4 K/mm3 (4.5-11.0) 11/22/19 05:00 RBC 3.45 M/mm3 (3.65-5.03) L 11/22/19 05:00 Hgb 10.8 gm/dl (11.8-15.2) L D 11/22/19 05:00 Hct 32.7 % (35.5-45.6) L D 11/22/19 05:00 MCV 95 fl (84-94) H 11/22/19 05:00 MCH 31 pg (28-32) 11/22/19 05:00 MCHC 33 % (32-34) 11/22/19 05:00 RDW 15.6 % (13.2-15.2) H 11/22/19 05:00 Plt Count 343 K/mm3 (140-440) 11/22/19 05:00 Lymph % (Auto) 13.5 % (13.4-35.0) 11/22/19 05:00 [place] % (Auto) 9.7 % (0.0-7.3) H 11/22/19 05:00 Eos % (Auto) 0.0 % (0.0-4.3) 11/22/19 05:00 Baso % (Auto) 0.4 % (0.0-1.8) 11/22/19 05:00 Lymph # 1.4 K/mm3 (1.2-5.4) 11/22/19 05:00 [place] # 1.0 K/mm3 (0.0-0.8) H 11/22/19 05:00 Eos # 0.0 K/mm3 (0.0-0.4) 11/22/19 05:00 Baso # 0.0 K/mm3 (0.0-0.1) 11/22/19 05:00 Seg Neutrophils % 76.4 % (40.0-70.0) H 11/22/19 05:00 Seg Neutrophils # 7.9 K/mm3 (1.8-7.7) H 11/22/19 05:00 PT 15.3 Sec. (12.2-14.9) H 11/20/19 14:27 INR 1.24 (0.87-1.13) H 11/20/19 14:27 D-Dimer 4762.24 ng/mlDDU (0-234) H 11/20/19 15:16 ABG pH 7.369 pH Units (7.350-7.450) 11/22/19 03:29 ABG pCO2 45.0 mm Hg 11/22/19 03:29 ABG pO2 140.4 mm Hg (80.0-90.0) H 11/22/19 03:29 ABG HCO3 25.3 mmol/L (20.0-26.0) 11/22/19 03:29 ABG O2 Saturation 98.7 % (95.0-99.0) 11/22/19 03:29 ABG O2 Content 16.4 (0.0-44) 11/22/19 03:29 ABG Base Excess -0.2 mmol/L (-2.0-3.0) 11/22/19 03:29 ABG Hemoglobin 11.8 gm/dl (14.0-18.0) L 11/22/19 03:29 ABG Carboxyhemoglobin 1.1 % (0.0-5.0) 11/22/19 03:29 ABG Methemoglobin 0.6 % (0.0-1.5) 11/22/19 03:29 VBG pH 7.477 (7.320-7.420) H 11/20/19 14:36 Oxyhemoglobin 97.0 % (95.0-99.0) 11/22/19 03:29 FiO2 40 % 11/22/19 03:29 Sodium 149 mmol/L (137-145) H 11/23/19 08:00 Potassium 4.0 mmol/L (3.6-5.0) D 11/23/19 08:00 Chloride 112.8 mmol/L (98-107) H 11/23/19 08:00 Carbon Dioxide 24 mmol/L (22-30) 11/23/19 08:00 Anion Gap 16 mmol/L 11/23/19 08:00 BUN 44 mg/dL (9-20) H 11/23/19 08:00 Creatinine 0.8 mg/dL (0.8-1.5) 11/23/19 08:00 Estimated GFR > 60 ml/min 11/23/19 08:00 BUN/Creatinine Ratio 55 % 11/23/19 08:00 Glucose 95 mg/dL (75-100) 11/23/19 08:00 POC Glucose 96 (70-105) 11/23/19 12:06 Lactic Acid 1.50 mmol/L (0.7-2.0) 11/20/19 19:11 Calcium 9.0 mg/dL (8.4-10.2) 11/23/19 08:00 Phosphorus 3.90 mg/dL (2.5-4.5) 11/21/19 20:31 Magnesium 2.70 mg/dL (1.7-2.3) H 11/23/19 15:09 Ferritin 1110.0 ng/mL (13.0-400.0) H 11/20/19 15:16 Total Bilirubin 0.40 mg/dL (0.1-1.2) 11/22/19 05:00 AST 43 units/L (5-40) H 11/22/19 05:00 ALT 19 units/L (7-56) 11/22/19 05:00 Alkaline Phosphatase 51 units/L (35-129) 11/22/19 05:00 Lactate Dehydrogenase 329 units/L (91-180) H 11/20/19 15:16 Total Creatine Kinase 65 units/L (55-170) 11/20/19 15:16 C-Reactive Protein 10.00 mg/dL (0.00-1.30) H 11/20/19 15:16 Total Protein 8.0 g/dL (6.3-8.2) 11/22/19 05:00 Albumin 2.3 g/dL (3.9-5) L 11/22/19 05:00 Albumin/Globulin Ratio 0.4 % 11/22/19 05:00 Procalcitonin 0.22 ng/mL (<0.15) 11/20/19 15:16 Urine Color Gissel (Yellow) 11/20/19 14:20 Urine Turbidity Clear (Clear) 11/20/19 14:20 Urine pH 5.0 (5.0-7.0) 11/20/19 14:20 Ur Specific [place] 1.027 (1.003-1.030) 11/20/19 14:20 Urine Protein 30 mg/dl mg/dL (Negative) 11/20/19 14:20 Urine Glucose (UA) Neg mg/dL (Negative) 11/20/19 14:20 Urine Ketones Neg mg/dL (Negative) 11/20/19 14:20 Urine Blood Sm (Negative) 11/20/19 14:20 Urine Nitrite Neg (Negative) 11/20/19 14:20 Urine Bilirubin Neg (Negative) 11/20/19 14:20 Urine Urobilinogen < 2.0 mg/dL (<2.0) 11/20/19 14:20 Ur Leukocyte Esterase Neg (Negative) 11/20/19 14:20 Urine WBC (Auto) 4.0 /HPF (0.0-6.0) 11/20/19 14:20 Urine RBC (Auto) 16.0 /HPF (0.0-6.0) 11/20/19 14:20 Urine Mucus 3+ /HPF 11/20/19 14:20 Vancomycin Trough 23.5 ug/mL (5.0-20.0) H 11/23/19 04:37 Coronavirus (PCR) Negative (Negative) 11/21/19 Unknown Microbiology: Microbiology 11/21/19 Unknown Tracheal Aspirate Sputum Culture - Preliminary Staphylococcus Aureus 11/20/19 Unknown Peripheral/Venous Blood Culture - Preliminary NO GROWTH AFTER 72 HOURS 11/20/19 Unknown Peripheral/Venous Blood Culture - Preliminary NO GROWTH AFTER 72 HOURS Buchanan/IV: Voiding Method Indwelling Catheter IV Catheter Type [Left Wrist] INT / Saline Lock Active Medications - Current Medications Current Medications: Generic Name Dose Route Start Last Admin Trade Name Freq PRN Reason Stop Dose Admin Albuterol 2.5 mg 11/21/19 16:09 Proventil IH Q4HRT PRN Shortness Of Breath Lipase/Protease/Amylase 1 each 11/22/19 09:00 Pancrekylah Marques 10,500 Unit FEEDTUBE PRN PRN For Clogged Feeding Tube Famotidine 20 mg 11/21/19 12:00 11/23/19 10:18 Pepcid IV 20 mg BID MARY Administration Fentanyl 50 mcg 11/20/19 14:55 Sublimaze IV Q10MIN PRN ANALGESIA Heparin Sodium (Porcine) 5,000 unit 11/20/19 22:00 11/23/19 10:18 Heparin SUB-Q 5,000 unit Q12HR MARY Administration Hydrophilic Ointment 1 applic 11/20/19 14:55 Vaseline Lip Therapy TP Q2HR PRN Dry Lips Fentanyl Citrate 2,000 mcg in 100 mls @ 3.969 mls/hr 11/20/19 15:00 11/22/19 11:50 Fentanyl Drip Premix IV Infused TITR MARY Titration Protocol 1 MCG/KG/HR Midazolam HCl 100 mg/ Sodium 100 mls @ 2 mls/hr 11/20/19 15:00 Chloride IV TITR MARY Protocol 2 MG/HR Cefepime HCl 2 gm in 100 mls @ 200 mls/hr 11/21/19 15:00 11/23/19 10:17 Cefepime/Ns 2 Gm/100 Ml IV 200 mls/hr Q12HR MARY Administration Protocol Midazolam HCl 2 mg 11/20/19 14:55 Versed IV Q10MIN PRN Sedation Multi-Ingred Cream/Lotion/Oil/Oint 1 applic 11/20/19 14:55 Artificial Tears Ophth Oint OU Q4HR PRN Dry Eye(s) Simple Syrup 15 ml 11/22/19 09:00 Simple Syrup FEEDTUBE PRN PRN Hypoglycemia Simple Syrup 30 ml 11/22/19 09:00 Simple Syrup FEEDTUBE PRN PRN Hypoglycemia Sodium Bicarbonate 325 mg 11/22/19 09:00 Sodium Bicarbonate FEEDTUBE PRN PRN For Clogged Feeding Tube Sodium Chloride 10 ml 11/20/19 22:00 11/22/19 21:30 Sodium Chloride Flush Syringe 10 Ml IV 10 ml BID MARY Administration Sodium Chloride 10 ml 11/20/19 15:22 11/22/19 09:36 Sodium Chloride Flush Syringe 10 Ml IV 10 ml PRN PRN Administration LINE FLUSH Nutrition/Malnutrition Assess - Dietary Evaluation Nutrition/Malnutrition Findings: Nutrition Notes Start: 11/21/19 08:43 Freq: Status: Active Protocol: Document 11/22/19 08:23 LP (Rec: 11/22/19 08:33 LP [id number]) Nutrition Notes Need for Assessment generated from: MD Order Initial or Follow up Reassessment Current Diagnosis Decubitus(Pressure Ulcer), Respiratory Failure Other Pertinent Diagnosis SIRS, Encephalopathy, sacral and R buttock wound Current Diet NPO Labs/Tests K 5.4 Pertinent Medications Reviewed Height 6 ft Weight 79.379 kg Meally Body Weight (kg) 80.90 BMI 23.7 Weight Status Appropriate Subjective/Other Information Consult for TF. Burn Absent Trauma Absent GI Symptoms None Current % PO Negligible Minimum of two criteria No physical signs of malnutrition #2 Nutrition Diagnosis Increased nutrient needs ( specify in comment below) Diagnosis Progress(for reassessment Continues documentation) #1 Nutrition Diagnosis Inadequate oral intake Diagnosis Progress(for reassessment Continues documentation) Is patient on ventilator? Yes Is Patient Ambulatory and/or Out of Bed No REE-(Dexter-St. Jeor-confined to bed) 2021.192 Calculation Used for Recommendations Dexter-St Jeor Additional Notes Protein needs are 95-159g (1.2 -2g/kg) Fluid needs are 1ml/kcal Nutrition Intervention Change Diet Order: TF Nutrition Support: Change to Nepro at 46ml/hr Flush with 200ml q4h Kcal 1,987 Protein (gm) 89 Fluid (mL) 803 Goal #1 Meet at least 80% of kcal and protein needs Goal #2 Wound healing Anticipated Discharge Needs: Unable to determine at this time Follow-Up By: 11/26/19 Additional Comments Follow for TF start and tolerance
[2019-11-23] MEDS ORDERED: VANCOMYCIN 1,250 MG in SODIUM CHLORIDE 0.9% 250ML 250 ML IV SCH (22:00)
--- NOTE | 2019-11-24 05:15 | XRay Report ---
CHEST 1 VIEW INDICATION / CLINICAL INFORMATION: follow up respiratory failure. COMPARISON: None available. FINDINGS: SUPPORT DEVICES: None. HEART / MEDIASTINUM: No significant abnormality. LUNGS / PLEURA: No significant pulmonary or pleural abnormality. No pneumothorax. ADDITIONAL FINDINGS: No significant additional findings. IMPRESSION: 1. No acute findings. Signer Name: Nolan Morgan MD Signed: 11/24/2019 5:11 AM Workstation Name: [id number]
[2019-11-24 07:08] LABS: BUN/Creatinine Ratio 51; Blood Urea Nitrogen 36 mg/dL (9-20); Hemolysis Index 16
[2019-11-24] MEDS: HEPARIN 5,000 UNIT/1 ML VIAL SUB-Q SCH ×2 (09:34→23:25)
[2019-11-24] MEDS: FAMOTIDINE 20 MG/2 ML INJ IV SCH ×2 (09:35→23:25)
[2019-11-24] MEDS: CEFEPIME/NS 2 GM/100 ML 2 GM/100 ML BAG IV SCH ×2 (09:44→23:26)
--- NOTE | 2019-11-24 16:01 | Progress Note ---
Assessment and Plan Acute hypoxemic respiratory failure, on mechanical ventilatory support. Systemic inflammatory response syndrome, possible early sepsis. Recent bilateral pneumonia with radiographic improvement. Person under investigation for COVID-19 infection. Acute possibly on chronic encephalopathy. Leukocytosis, mild at presentation. Elevated serum D-dimer. Hypercapnic respiratory failure. PUI- COVID: COVID test neg on on 11/07 and 11/19. Moderate protein calorie malnutrition Acute toxic-metabolic encephalopathy - discontinue hurt - place NGT - begin enteral nutrition thereafter - follow HEATER MECH[employer]IC re-evaluation and advance diet as tolerated - continue other care as below - continue aspiration precautions - continue enoxaparin for VTE prophylaxis (severe thrombocytosis) - ABG, CXR prn at this point - continue airborne, droplet and contact isolation for COVID-19 till second test negative (markedly elevated inflammatory markers) - continue to wean supplemental oxygen for target O2 sat's > 90% - continue bronchodilators with pulmonary hygiene per RT - avoid nephrotoxins, - accuchecks with glycemic control per SSI (While critically ill target blood glucose of 140-180 mg/dL; avoid hypoglycemia) - continue to avoid benzodiazepines, reduce the possibility of delirium - prn analgesia per pain score - maintenance of sleep-wake cycle, avoid delirium - VTE prophylaxis-Enoxaparin - Stress ulcer prophylaxis- Famotidine - PT/OT/ROM exercises - continue mobility protocol, off loading and skin assessment for pressure ulcer prevention - continue other care per attending / other consultants .... Re-evaluate in am & prn CONDITION: FAIR PROGNOSIS: GUARDED CODE STATUS:FULL CODE I have spent ( >35 ) minutes with the patient w/ >50% of the time spent counseling and/or coordinating care for this patient. Counseling topics and/or how time was spent coordinating patient's care is outlined in the impression and plan above. Subjective Date of service: 11/24/19 Principal diagnosis: Ac. hypoxemic resp failure; SIRS; Elijah. PNA; [id number] infection; Autism Interval history: Patient is seen today for: Ac. hypoxemic resp failure; SIRS; Elijah. PNA; [id number] infection; Autism; Acute toxic-metabolic encephalopathy Seen and examined at bedside; 24hour events reviewed; nursing and respiratory care staff consulted; no adverse overnight events reported to me; resting in bed; + intermittent agitation; alert; denies acute chest pain; on minimal supplemental oxygen; remains NPO and refusing NGT earlier Objective Vital Signs - 12hr 11/24/19 11/24/19 11/24/19 05:00 06:00 07:00 Temperature Pulse Rate 75 66 64 Pulse Rate [ From Monitor] Respiratory 20 15 13 Rate Blood Pressure 162/107 161/98 162/95 O2 Sat by Pulse 100 99 100 Oximetry 11/24/19 11/24/19 11/24/19 08:00 09:00 10:00 Temperature 97.8 F Pulse Rate 86 91 H 84 Pulse Rate [ 83 From Monitor] Respiratory 19 18 15 Rate Blood Pressure 154/102 163/107 153/101 O2 Sat by Pulse 99 Oximetry 11/24/19 11/24/19 11/24/19 11:00 12:00 13:00 Temperature 98.0 F Pulse Rate 85 88 81 Pulse Rate [ 82 From Monitor] Respiratory 15 19 15 Rate Blood Pressure 156/102 152/104 164/106 O2 Sat by Pulse 100 100 100 Oximetry Constitutional: alert, appears uncomfortable Eyes: non-icteric ENT: oropharynx moist, other (extubated) Neck: supple, no lymphadenopathy Effort: normal Ascultation: Bilateral: diminished breath sounds, rhonchi Percussion: Bilateral: not dull Cardiovascular: regular rate and rhythm, other (S1,S2, no murmurs, no gallops, no rubs) Gastrointestinal: normoactive bowel sounds, soft, non-tender, non-distended Integumentary: rash (xeroderma) Extremities: no cyanosis, no edema, pulses normal, no ischemia or petechiae Neurologic: non-focal exam (grossly), pupils equal and round, CN II-XII normal, other (awake) Psychiatric: other CBC and BMP: 11/22/19 05:00 11/24/19 05:24 ABG, PT/INR, D-dimer: ABG ABG pH 7.369 pH Units (7.350-7.450) 11/22/19 03:29 ABG pCO2 45.0 mm Hg 11/22/19 03:29 ABG pO2 140.4 mm Hg (80.0-90.0) H 11/22/19 03:29 ABG O2 Saturation 98.7 % (95.0-99.0) 11/22/19 03:29 PT/INR, D-dimer PT 15.3 Sec. (12.2-14.9) H 11/20/19 14:27 INR 1.24 (0.87-1.13) H 11/20/19 14:27 D-Dimer 4762.24 ng/mlDDU (0-234) H 11/20/19 15:16 Abnormal lab findings: Abnormal Labs 11/20/19 11/20/19 11/20/19 14:19 14:27 14:27 WBC 11.3 H RBC Hgb Hct MCV RDW 15.5 H Plt Count 479 H Lymph % (Auto) 10.8 L [place] % (Auto) [place] # Seg Neutrophils % 82.8 H Seg Neutrophils # 9.4 H PT 15.3 H INR 1.24 H D-Dimer ABG pH ABG pO2 ABG HCO3 ABG Hemoglobin VBG pH Sodium Potassium Chloride BUN 21 H Creatinine 0.6 L Glucose 128 H POC Glucose Magnesium Ferritin AST Lactate Dehydrogenase C-Reactive Protein Total Protein 9.0 H Albumin 2.9 L Vancomycin Trough 11/20/19 11/20/19 11/20/19 14:36 15:16 15:16 WBC RBC Hgb Hct MCV RDW Plt Count Lymph % (Auto) [place] % (Auto) [place] # Seg Neutrophils % Seg Neutrophils # PT INR D-Dimer 4762.24 H ABG pH ABG pO2 ABG HCO3 ABG Hemoglobin VBG pH 7.477 H Sodium Potassium Chloride BUN Creatinine Glucose 122 H POC Glucose Magnesium Ferritin AST Lactate Dehydrogenase 329 H C-Reactive Protein 10.00 H Total Protein Albumin Vancomycin Trough 11/20/19 11/21/19 11/21/19 15:16 03:55 12:18 WBC RBC Hgb Hct MCV RDW Plt Count Lymph % (Auto) [place] % (Auto) [place] # Seg Neutrophils % Seg Neutrophils # PT INR D-Dimer ABG pH 7.323 L ABG pO2 127.0 H ABG HCO3 26.1 H ABG Hemoglobin 12.2 L VBG pH Sodium Potassium Chloride BUN Creatinine Glucose POC Glucose 108 H Magnesium Ferritin 1110.0 H AST Lactate Dehydrogenase C-Reactive Protein Total Protein Albumin Vancomycin Trough 11/21/19 11/22/19 11/22/19 17:47 00:00 03:29 WBC RBC Hgb Hct MCV RDW Plt Count Lymph % (Auto) [place] % (Auto) [place] # Seg Neutrophils % Seg Neutrophils # PT INR D-Dimer ABG pH ABG pO2 140.4 H ABG HCO3 ABG Hemoglobin 11.8 L VBG pH Sodium Potassium Chloride BUN Creatinine Glucose POC Glucose 114 H 114 H Magnesium Ferritin AST Lactate Dehydrogenase C-Reactive Protein Total Protein Albumin Vancomycin Trough 11/22/19 11/22/19 11/22/19 05:00 05:00 12:07 WBC RBC 3.45 L Hgb 10.8 L D Hct 32.7 L D MCV 95 H RDW 15.6 H Plt Count Lymph % (Auto) [place] % (Auto) 9.7 H [place] # 1.0 H Seg Neutrophils % 76.4 H Seg Neutrophils # 7.9 H PT INR D-Dimer ABG pH ABG pO2 ABG HCO3 ABG Hemoglobin VBG pH Sodium Potassium 5.4 H Chloride BUN 57 H Creatinine Glucose 105 H POC Glucose 116 H Magnesium Ferritin AST 43 H Lactate Dehydrogenase C-Reactive Protein Total Protein Albumin 2.3 L Vancomycin Trough 11/23/19 11/23/19 11/23/19 00:14 04:37 05:47 WBC RBC Hgb Hct MCV RDW Plt Count Lymph % (Auto) [place] % (Auto) [place] # Seg Neutrophils % Seg Neutrophils # PT INR D-Dimer ABG pH ABG pO2 ABG HCO3 ABG Hemoglobin VBG pH Sodium Potassium Chloride BUN Creatinine Glucose POC Glucose 114 H 110 H Magnesium Ferritin AST Lactate Dehydrogenase C-Reactive Protein Total Protein Albumin Vancomycin Trough 23.5 H 11/23/19 11/23/19 11/24/19 08:00 15:09 05:24 WBC RBC Hgb Hct MCV RDW Plt Count Lymph % (Auto) [place] % (Auto) [place] # Seg Neutrophils % Seg Neutrophils # PT INR D-Dimer ABG pH ABG pO2 ABG HCO3 ABG Hemoglobin VBG pH Sodium 149 H 149 H Potassium Chloride 112.8 H 109.6 H BUN 44 H 36 H Creatinine 0.7 L Glucose POC Glucose Magnesium 2.70 H Ferritin AST Lactate Dehydrogenase C-Reactive Protein Total Protein Albumin Vancomycin Trough Allied health notes reviewed: nursing
--- NOTE | 2019-11-24 17:31 | XRay Report ---
SUPINE ABDOMEN 11/24/2019 AT 1651 HOURS INDICATION / CLINICAL INFORMATION: NGT Placement. COMPARISON: None available. FINDINGS: The nasogastric tube is positioned in the mid stomach. Signer Name: Rex Witt MD Signed: 11/24/2019 5:26 PM Workstation Name: [id number]
--- NOTE | 2019-11-24 18:54 | Progress Note ---
Assessment and Plan - Patient Problems (1) Acute respiratory failure Current Visit: Yes Status: Acute Qualifiers: Respiratory failure complication: hypoxia Qualified Code(s): J96.01 - Acute respiratory failure with hypoxia Plan to address problem: Patient successfully weaned from ventilatory support. Patient has episodes of dysphagia, pulmonary toilet, incentive spirometry, supportive care. (2) Suspected 2019 novel coronavirus infection Current Visit: Yes Status: Acute Plan to address problem: Coronavirus PCR is negative. (3) Systemic inflammatory response syndrome (SIRS) Current Visit: Yes Status: Acute Plan to address problem: IV antibiotic therapy, CBC, CMP, chest x-ray, urinalysis, repeat CBC in a.m. (4) Encephalopathy Current Visit: No Status: Acute Plan to address problem: neuro check, aspiration precaution, seizure precautions, supportive care. (5) DVT prophylaxis Current Visit: No Status: Acute Plan to address problem: SCD to bilateral lower extremities while in bed, prophylactic heparin. History Interval history: 54 YO Male HD#5 with Acute Respiratory Failure which has resolved. Pt successfully extubated. SIRS, Encephalopathy are both improved. Coronavirus PCR is negative. Pt transferred to medical floor. Patient continues to have e pisodes of dysphagia. Continue supportive care. Speech therapy consulted, physical therapy consulted for deconditioning. Discharge planning when patient medically optimized. Case management consulted for assistance with discharge planning. Hospitalist Physical - Constitutional Vitals: Temp Pulse Resp BP Pulse Ox 98.0 F 79 17 162/107 100 11/24/19 12:00 11/24/19 15:00 11/24/19 15:00 11/24/19 15:00 11/24/19 15:00 General appearance: Present: mild distress, cachectic, disheveled - EENT Eyes: Present: PERRL, EOM intact - Neck Neck: Present: supple - Respiratory Respiratory: bilateral: CTA - Cardiovascular Rhythm: regular Heart Sounds: Present: S1 & S2 Peripheral Pulses: within normal limits - Abdominal General gastrointestinal: soft, non-tender, non-distended - Integumentary Integumentary: Present: clear, dry - Psychiatric Psychiatric: cooperative - Neurologic Neurologic: CNII-XII intact, moves all extremities, no gait normal Results - Labs CBC & Chem 7: 11/22/19 05:00 11/24/19 05:24 Labs: Laboratory Last Values WBC 10.4 K/mm3 (4.5-11.0) 11/22/19 05:00 RBC 3.45 M/mm3 (3.65-5.03) L 11/22/19 05:00 Hgb 10.8 gm/dl (11.8-15.2) L D 11/22/19 05:00 Hct 32.7 % (35.5-45.6) L D 11/22/19 05:00 MCV 95 fl (84-94) H 11/22/19 05:00 MCH 31 pg (28-32) 11/22/19 05:00 MCHC 33 % (32-34) 11/22/19 05:00 RDW 15.6 % (13.2-15.2) H 11/22/19 05:00 Plt Count 343 K/mm3 (140-440) 11/22/19 05:00 Lymph % (Auto) 13.5 % (13.4-35.0) 11/22/19 05:00 [place] % (Auto) 9.7 % (0.0-7.3) H 11/22/19 05:00 Eos % (Auto) 0.0 % (0.0-4.3) 11/22/19 05:00 Baso % (Auto) 0.4 % (0.0-1.8) 11/22/19 05:00 Lymph # 1.4 K/mm3 (1.2-5.4) 11/22/19 05:00 [place] # 1.0 K/mm3 (0.0-0.8) H 11/22/19 05:00 Eos # 0.0 K/mm3 (0.0-0.4) 11/22/19 05:00 Baso # 0.0 K/mm3 (0.0-0.1) 11/22/19 05:00 Seg Neutrophils % 76.4 % (40.0-70.0) H 11/22/19 05:00 Seg Neutrophils # 7.9 K/mm3 (1.8-7.7) H 11/22/19 05:00 PT 15.3 Sec. (12.2-14.9) H 11/20/19 14:27 INR 1.24 (0.87-1.13) H 11/20/19 14:27 D-Dimer 4762.24 ng/mlDDU (0-234) H 11/20/19 15:16 ABG pH 7.369 pH Units (7.350-7.450) 11/22/19 03:29 ABG pCO2 45.0 mm Hg 11/22/19 03:29 ABG pO2 140.4 mm Hg (80.0-90.0) H 11/22/19 03:29 ABG HCO3 25.3 mmol/L (20.0-26.0) 11/22/19 03:29 ABG O2 Saturation 98.7 % (95.0-99.0) 11/22/19 03:29 ABG O2 Content 16.4 (0.0-44) 11/22/19 03:29 ABG Base Excess -0.2 mmol/L (-2.0-3.0) 11/22/19 03:29 ABG Hemoglobin 11.8 gm/dl (14.0-18.0) L 11/22/19 03:29 ABG Carboxyhemoglobin 1.1 % (0.0-5.0) 11/22/19 03:29 ABG Methemoglobin 0.6 % (0.0-1.5) 11/22/19 03:29 VBG pH 7.477 (7.320-7.420) H 11/20/19 14:36 Oxyhemoglobin 97.0 % (95.0-99.0) 11/22/19 03:29 FiO2 40 % 11/22/19 03:29 Sodium 149 mmol/L (137-145) H 11/24/19 05:24 Potassium 4.0 mmol/L (3.6-5.0) 11/24/19 05:24 Chloride 109.6 mmol/L (98-107) H 11/24/19 05:24 Carbon Dioxide 25 mmol/L (22-30) 11/24/19 05:24 Anion Gap 18 mmol/L 11/24/19 05:24 BUN 36 mg/dL (9-20) H 11/24/19 05:24 Creatinine 0.7 mg/dL (0.8-1.5) L 11/24/19 05:24 Estimated GFR > 60 ml/min 11/24/19 05:24 BUN/Creatinine Ratio 51 % 11/24/19 05:24 Glucose 87 mg/dL (75-100) 11/24/19 05:24 POC Glucose 104 (70-105) 11/24/19 12:15 Lactic Acid 1.50 mmol/L (0.7-2.0) 11/20/19 19:11 Calcium 9.0 mg/dL (8.4-10.2) 11/24/19 05:24 Phosphorus 3.90 mg/dL (2.5-4.5) 11/21/19 20:31 Magnesium 2.70 mg/dL (1.7-2.3) H 11/23/19 15:09 Ferritin 1110.0 ng/mL (13.0-400.0) H 11/20/19 15:16 Total Bilirubin 0.40 mg/dL (0.1-1.2) 11/22/19 05:00 AST 43 units/L (5-40) H 11/22/19 05:00 ALT 19 units/L (7-56) 11/22/19 05:00 Alkaline Phosphatase 51 units/L (35-129) 11/22/19 05:00 Lactate Dehydrogenase 329 units/L (91-180) H 11/20/19 15:16 Total Creatine Kinase 65 units/L (55-170) 11/20/19 15:16 C-Reactive Protein 10.00 mg/dL (0.00-1.30) H 11/20/19 15:16 Total Protein 8.0 g/dL (6.3-8.2) 11/22/19 05:00 Albumin 2.3 g/dL (3.9-5) L 11/22/19 05:00 Albumin/Globulin Ratio 0.4 % 11/22/19 05:00 Procalcitonin 0.22 ng/mL (<0.15) 11/20/19 15:16 Urine Color [place] (Yellow) 11/20/19 14:20 Urine Turbidity Clear (Clear) 11/20/19 14:20 Urine pH 5.0 (5.0-7.0) 11/20/19 14:20 Ur Specific [place] 1.027 (1.003-1.030) 11/20/19 14:20 Urine Protein 30 mg/dl mg/dL (Negative) 11/20/19 14:20 Urine Glucose (UA) Neg mg/dL (Negative) 11/20/19 14:20 Urine Ketones Neg mg/dL (Negative) 11/20/19 14:20 Urine Blood Sm (Negative) 11/20/19 14:20 Urine Nitrite Neg (Negative) 11/20/19 14:20 Urine Bilirubin Neg (Negative) 11/20/19 14:20 Urine Urobilinogen < 2.0 mg/dL (<2.0) 11/20/19 14:20 Ur Leukocyte Esterase Neg (Negative) 11/20/19 14:20 Urine WBC (Auto) 4.0 /HPF (0.0-6.0) 11/20/19 14:20 Urine RBC (Auto) 16.0 /HPF (0.0-6.0) 11/20/19 14:20 Urine Mucus 3+ /HPF 11/20/19 14:20 Vancomycin Trough 23.5 ug/mL (5.0-20.0) H 11/23/19 04:37 Coronavirus (PCR) Negative (Negative) 11/21/19 Unknown Microbiology: Microbiology 11/20/19 Unknown Peripheral/Venous Blood Culture - Preliminary NO GROWTH AFTER 4 DAYS 11/20/19 Unknown Peripheral/Venous Blood Culture - Preliminary NO GROWTH AFTER 4 DAYS 11/21/19 Unknown Tracheal Aspirate Sputum Culture - Preliminary Staphylococcus Aureus [place]/IV: Voiding Method Indwelling Catheter IV Catheter Type [Left Wrist] INT / Saline Lock Active Medications - Current Medications Current Medications: Generic Name Dose Route Start Last Admin Trade Name Freq PRN Reason Stop Dose Admin Albuterol 2.5 mg 11/21/19 16:09 Proventil IH Q4HRT PRN Shortness Of Breath Lipase/Protease/Amylase 1 each 11/22/19 09:00 Corinne Marques 10,500 Unit FEEDTUBE PRN PRN For Clogged Feeding Tube Famotidine 20 mg 11/21/19 12:00 11/24/19 09:35 Pepcid IV 20 mg BID MARY Administration Fentanyl 50 mcg 11/20/19 14:55 Sublimaze IV Q10MIN PRN ANALGESIA Heparin Sodium (Porcine) 5,000 unit 11/20/19 22:00 11/24/19 09:34 Heparin SUB-Q 5,000 unit Q12HR MARY Administration Hydrophilic Ointment 1 applic 11/20/19 14:55 Vaseline Lip Therapy TP Q2HR PRN Dry Lips Fentanyl Citrate 2,000 mcg in 100 mls @ 3.969 mls/hr 11/20/19 15:00 11/22/19 11:50 Fentanyl Drip Premix IV Infused TITR MARY Titration Protocol 1 MCG/KG/HR Midazolam HCl 100 mg/ Sodium 100 mls @ 2 mls/hr 11/20/19 15:00 Chloride IV TITR MARY Protocol 2 MG/HR Cefepime HCl 2 gm in 100 mls @ 200 mls/hr 11/21/19 15:00 11/24/19 09:44 Cefepime/Ns 2 Gm/100 Ml IV 200 mls/hr Q12HR MARY Administration Protocol Midazolam HCl 2 mg 11/20/19 14:55 Versed IV Q10MIN PRN Sedation Multi-Ingred Cream/Lotion/Oil/Oint 1 applic 11/20/19 14:55 Artificial Tears Ophth Oint OU Q4HR PRN Dry Eye(s) Simple Syrup 15 ml 11/22/19 09:00 Simple Syrup FEEDTUBE PRN PRN Hypoglycemia Simple Syrup 30 ml 11/22/19 09:00 Simple Syrup FEEDTUBE PRN PRN Hypoglycemia Sodium Bicarbonate 325 mg 11/22/19 09:00 Sodium Bicarbonate FEEDTUBE PRN PRN For Clogged Feeding Tube Sodium Chloride 10 ml 11/20/19 22:00 11/24/19 09:34 Sodium Chloride Flush Syringe 10 Ml IV 10 ml BID MARY Administration Sodium Chloride 10 ml 11/20/19 15:22 11/22/19 09:36 Sodium Chloride Flush Syringe 10 Ml IV 10 ml PRN PRN Administration LINE FLUSH Nutrition/Malnutrition Assess - Dietary Evaluation Nutrition/Malnutrition Findings: Nutrition Notes Start: 11/21/19 08:43 Freq: Status: Active Protocol: Document 11/22/19 08:23 LP (Rec: 11/22/19 08:33 LP [id number]) Nutrition Notes Need for Assessment generated from: MD Order Initial or Follow up Reassessment Current Diagnosis Decubitus(Pressure Ulcer), Respiratory Failure Other Pertinent Diagnosis SIRS, Encephalopathy, sacral and R buttock wound Current Diet NPO Labs/Tests K 5.4 Pertinent Medications Reviewed Height 6 ft Weight 79.379 kg [place] Body Weight (kg) 80.90 BMI 23.7 Weight Status Appropriate Subjective/Other Information Consult for TF. Burn Absent Trauma Absent GI Symptoms None Current % PO Negligible Minimum of two criteria No physical signs of malnutrition #2 Nutrition Diagnosis Increased nutrient needs ( specify in comment below) Diagnosis Progress(for reassessment Continues documentation) #1 Nutrition Diagnosis Inadequate oral intake Diagnosis Progress(for reassessment Continues documentation) Is patient on ventilator? Yes Is Patient Ambulatory and/or Out of Bed No REE-([facility]-confined to bed) 2021.192 Calculation Used for Recommendations [facility] Additional Notes Protein needs are 95-159g (1.2 -2g/kg) Fluid needs are 1ml/kcal Nutrition Intervention Change Diet Order: TF Nutrition Support: Change to [place] at 46ml/hr Flush with 200ml q4h Kcal 1,987 Protein (gm) 89 Fluid (mL) 803 Goal #1 Meet at least 80% of kcal and protein needs Goal #2 Wound healing Anticipated Discharge Needs: Unable to determine at this time Follow-Up By: 11/26/19 Additional Comments Follow for TF start and tolerance
--- NOTE | 2019-11-24 20:46 | XRay Report ---
ABDOMEN 1 VIEW(S) INDICATION / CLINICAL INFORMATION: NG tube confirmation. COMPARISON: 1651 hours FINDINGS: TUBES / LINES: NG tube has been replaced but the tube is coiled in the stomach with the tip extending retrograde into the distal esophagus and the tube needs to be partially withdrawn and readvanced. BOWEL GAS PATTERN: No significant abnormality. FREE AIR / EXTRALUMINAL GAS: None seen. ADDITIONAL FINDINGS: No significant additional findings. IMPRESSION: 1. Malpositioned NG tube with the tip in the esophagus. Signer Name: Tristan Darby MD Signed: 11/24/2019 8:42 PM Workstation Name: [id number]
--- NOTE | 2019-11-24 21:56 | XRay Report ---
SUPINE ABDOMEN 11/24/2019 AT 2140 HOURS INDICATION / CLINICAL INFORMATION: ng tube confirmation. COMPARISON: 04/25/2020 2013 hours FINDINGS: The nasogastric tube remains malpositioned. The tube is looped back proximally at the level of the ga stroesophageal junction and the tip remains within the midesophagus. Signer Name: Rex Witt MD Signed: 11/24/2019 9:52 PM Workstation Name: [id number]
--- NOTE | 2019-11-24 23:13 | XRay Report ---
Abdomen single view INDICATION: G-tube placement. Abdominal pain IMPRESSION: NG tube terminates within the mid to upper stomach. Signer Name: Nolan Morgan MD Signed: 11/24/2019 11:08 PM Workstation Name: [id number]
[2019-11-25] MEDS ORDERED: hydrALAZINE 20 MG/1 ML INJ IV PRN (01:01)
[2019-11-25] MEDS: HEPARIN 5,000 UNIT/1 ML VIAL SUB-Q SCH ×2 (10:13→21:30)
[2019-11-25] MEDS: FAMOTIDINE 20 MG/2 ML INJ IV SCH ×2 (10:14→21:30)
[2019-11-25] MEDS: CEFEPIME/NS 2 GM/100 ML 2 GM/100 ML BAG IV SCH ×2 (10:20→21:30)
--- NOTE | 2019-11-25 12:08 | Progress Note ---
Assessment and Plan Acute hypoxemic respiratory failure, on mechanical ventilatory support. Systemic inflammatory response syndrome, possible early sepsis. Recent bilateral pneumonia with radiographic improvement. Person under investigation for COVID-19 infection. Acute possibly on chronic encephalopathy. Leukocytosis, mild at presentation. Elevated serum D-dimer. Hypercapnic respiratory failure. PUI- COVID: COVID test neg on on 11/07 and 11/19. Moderate protein calorie malnutrition Acute toxic-metabolic encephalopathy - discontinued hurt - follow FAMILY [employer]ER re-evaluation and advance diet as tolerated - continue other care as below - continue aspiration precautions - continue enoxaparin for VTE prophylaxis (severe thrombocytosis) - ABG, CXR prn at this point - continue airborne, droplet and contact isolation for COVID-[address] negative (markedly elevated inflammatory markers) - continue to wean supplemental oxygen for target O2 sat's > 90% - continue bronchodilators with pulmonary hygiene per RT - avoid nephrotoxins, - accuchecks with glycemic control per SSI (While critically ill target blood glucose of 140-180 mg/dL; avoid hypoglycemia) - continue to avoid benzodiazepines, reduce the possibility of delirium - prn analgesia per pain score - maintenance of sleep-wake cycle, avoid delirium - VTE prophylaxis-Enoxaparin - Stress ulcer prophylaxis- Famotidine - PT/OT/ROM exercises - continue mobility protocol, off loading and skin assessment for pressure ulcer prevention - continue other care per attending / other consultants .... Re-evaluate in am & prn CONDITION: FAIR PROGNOSIS: GUARDED CODE STATUS:FULL CODE Subjective Date of service: 11/25/19 Principal diagnosis: Ac. hypoxemic resp failure; SIRS; Elijah. PNA; [id number] infection; Autism Interval history: Patient is seen today for: Ac. hypoxemic resp failure; SIRS; Elijah. PNA; [id number] infection; Autism; Acute toxic-metabolic encephalopathy Seen and examined at bedside; 24hour events reviewed; nursing and respiratory care staff consulted; no adverse overnight events reported to me; resting in bed; no new issues Objective Vital Signs - 12hr 11/25/19 11/25/19 11/25/19 01:32 04:02 04:38 Temperature 98.4 F Pulse Rate 104 H 124 H 147 H Pulse Rate [ From Monitor] Respiratory 18 Rate Blood Pressure 179/110 177/112 O2 Sat by Pulse 99 Oximetry 11/25/19 11/25/19 08:00 10:00 Temperature Pulse Rate 116 H Pulse Rate [ 86 From Monitor] Respiratory 16 Rate Blood Pressure O2 Sat by Pulse Oximetry Constitutional: alert, appears uncomfortable Eyes: non-icteric ENT: oropharynx moist, other (extubated) Neck: supple, no lymphadenopathy Effort: normal Ascultation: Bilateral: diminished breath sounds, rhonchi Percussion: Bilateral: not dull Cardiovascular: regular rate and rhythm, other (S1,S2, no murmurs, no gallops, no rubs) Gastrointestinal: normoactive bowel sounds, soft, non-tender, non-distended Integumentary: rash (xeroderma) Extremities: no cyanosis, no edema, pulses normal, no ischemia or petechiae Neurologic: non-focal exam (grossly), pupils equal and round, CN II-XII normal, other (awake) Psychiatric: other CBC and BMP: 11/22/19 05:00 11/24/19 05:24 ABG, PT/INR, D-dimer: ABG ABG pH 7.369 pH Units (7.350-7.450) 11/22/19 03:29 ABG pCO2 45.0 mm Hg 11/22/19 03:29 ABG pO2 140.4 mm Hg (80.0-90.0) H 11/22/19 03:29 ABG O2 Saturation 98.7 % (95.0-99.0) 11/22/19 03:29 PT/INR, D-dimer PT 15.3 Sec. (12.2-14.9) H 11/20/19 14:27 INR 1.24 (0.87-1.13) H 11/20/19 14:27 D-Dimer 4762.24 ng/mlDDU (0-234) H 11/20/19 15:16 Abnormal lab findings: Abnormal Labs 11/20/19 11/20/19 11/20/19 14:19 14:27 14:27 WBC 11.3 H RBC Hgb Hct MCV RDW 15.5 H Plt Count 479 H Lymph % (Auto) 10.8 L Eddy % (Auto) Eddy # Seg Neutrophils % 82.8 H Seg Neutrophils # 9.4 H PT 15.3 H INR 1.24 H D-Dimer ABG pH ABG pO2 ABG HCO3 ABG Hemoglobin VBG pH Sodium Potassium Chloride BUN 21 H Creatinine 0.6 L Glucose 128 H POC Glucose Magnesium Ferritin AST Lactate Dehydrogenase C-Reactive Protein Total Protein 9.0 H Albumin 2.9 L Vancomycin Trough 11/20/19 11/20/19 11/20/19 14:36 15:16 15:16 WBC RBC Hgb Hct MCV RDW Plt Count Lymph % (Auto) Eddy % (Auto) Eddy # Seg Neutrophils % Seg Neutrophils # PT INR D-Dimer 4762.24 H ABG pH ABG pO2 ABG HCO3 ABG Hemoglobin VBG pH 7.477 H Sodium Potassium Chloride BUN Creatinine Glucose 122 H POC Glucose Magnesium Ferritin AST Lactate Dehydrogenase 329 H C-Reactive Protein 10.00 H Total Protein Albumin Vancomycin Trough 11/20/19 11/21/19 11/21/19 15:16 03:55 12:18 WBC RBC Hgb Hct MCV RDW Plt Count Lymph % (Auto) Eddy % (Auto) Eddy # Seg Neutrophils % Seg Neutrophils # PT INR D-Dimer ABG pH 7.323 L ABG pO2 127.0 H ABG HCO3 26.1 H ABG Hemoglobin 12.2 L VBG pH Sodium Potassium Chloride BUN Creatinine Glucose POC Glucose 108 H Magnesium Ferritin 1110.0 H AST Lactate Dehydrogenase C-Reactive Protein Total Protein Albumin Vancomycin Trough 11/21/19 11/22/19 11/22/19 17:47 00:00 03:29 WBC RBC Hgb Hct MCV RDW Plt Count Lymph % (Auto) Eddy % (Auto) Eddy # Seg Neutrophils % Seg Neutrophils # PT INR D-Dimer ABG pH ABG pO2 140.4 H ABG HCO3 ABG Hemoglobin 11.8 L VBG pH Sodium Potassium Chloride BUN Creatinine Glucose POC Glucose 114 H 114 H Magnesium Ferritin AST Lactate Dehydrogenase C-Reactive Protein Total Protein Albumin Vancomycin Trough 11/22/19 11/22/19 11/22/19 05:00 05:00 12:07 WBC RBC 3.45 L Hgb 10.8 L D Hct 32.7 L D MCV 95 H RDW 15.6 H Plt Count Lymph % (Auto) Eddy % (Auto) 9.7 H Eddy # 1.0 H Seg Neutrophils % 76.4 H Seg Neutrophils # 7.9 H PT INR D-Dimer ABG pH ABG pO2 ABG HCO3 ABG Hemoglobin VBG pH Sodium Potassium 5.4 H Chloride BUN 57 H Creatinine Glucose 105 H POC Glucose 116 H Magnesium Ferritin AST 43 H Lactate Dehydrogenase C-Reactive Protein Total Protein Albumin 2.3 L Vancomycin Trough 11/23/19 11/23/19 11/23/19 00:14 04:37 05:47 WBC RBC Hgb Hct MCV RDW Plt Count Lymph % (Auto) Eddy % (Auto) Eddy # Seg Neutrophils % Seg Neutrophils # PT INR D-Dimer ABG pH ABG pO2 ABG HCO3 ABG Hemoglobin VBG pH Sodium Potassium Chloride BUN Creatinine Glucose POC Glucose 114 H 110 H Magnesium Ferritin AST Lactate Dehydrogenase C-Reactive Protein Total Protein Albumin Vancomycin Trough 23.5 H 11/23/19 11/23/19 11/24/19 08:00 15:09 05:24 WBC RBC Hgb Hct MCV RDW Plt Count Lymph % (Auto) Eddy % (Auto) Eddy # Seg Neutrophils % Seg Neutrophils # PT INR D-Dimer ABG pH ABG pO2 ABG HCO3 ABG Hemoglobin VBG pH Sodium 149 H 149 H Potassium Chloride 112.8 H 109.6 H BUN 44 H 36 H Creatinine 0.7 L Glucose POC Glucose Magnesium 2.70 H Ferritin AST Lactate Dehydrogenase C-Reactive Protein Total Protein Albumin Vancomycin Trough Allied health notes reviewed: nursing
--- NOTE | 2019-11-25 14:32 | Progress Note ---
Assessment and Plan - Patient Problems (1) Acute respiratory failure Current Visit: Yes Status: Acute Qualifiers: Respiratory failure complication: hypoxia Qualified Code(s): J96.01 - Acute respiratory failure with hypoxia Plan to address problem: Patient successfully weaned from ventilatory support. Patient has episodes of dysphagia, pulmonary toilet, incentive spirometry, supportive care. (2) Suspected 2019 novel coronavirus infection Current Visit: Yes Status: Acute Plan to address problem: Coronavirus PCR is negative. (3) Systemic inflammatory response syndrome (SIRS) Current Visit: Yes Status: Acute Plan to address problem: Resolved, supportive care. (4) Encephalopathy Current Visit: No Status: Acute Plan to address problem: neuro check, aspiration precaution, seizure precautions, supportive care. (5) Dysphagia Current Visit: Yes Status: Acute Plan to address problem: Speech consulted, NGT in place. (6) DVT prophylaxis Current Visit: No Status: Acute Plan to address problem: SCD to bilateral lower extremities while in bed, prophylactic heparin. (7) Advance care planning Current Visit: Yes Status: Acute Plan to address problem: Pt is full code. Discuss with team in AM regarding D/C planning options, LONG TERM, Hospice, or D/C to [facility]. +30min History Interval history: 54 YO Male HD#6 with Acute Respiratory Failure which has resolved. SIRS, Encephalopathy are both improved. Coronavirus PCR is negative. Pt transferred to medical floor. Patient continues to have episodes of dysphagia and is S/P NGT Placement. Continue supportive care. Speech therapy consulted, physical therapy consulted for deconditioning. Discharge planning when placement a rranged. Case management consulted for assistance with discharge planning. Hospitalist Physical - Constitutional Vitals: Temp Pulse Resp BP Pulse Ox 98.4 F 105 H 18 118/93 96 11/25/19 04:02 11/25/19 13:45 11/25/19 13:45 11/25/19 13:45 11/25/19 13:45 General appearance: Present: mild distress, cachectic, disheveled - EENT Eyes: Present: PERRL ENT: hearing intact - Neck Neck: Present: supple - Respiratory Respiratory: bilateral: CTA, rhonchi - Cardiovascular Rhythm: regular Heart Sounds: Present: S1 & S2 - Extremities Extremities: abnormal (BLE contracture, ) Peripheral Pulses: within normal limits - Abdominal General gastrointestinal: soft, non-tender, non-distended - Integumentary Integumentary: Present: clear, warm, dry - Psychiatric Psychiatric: agitated - Neurologic Neurologic: CNII-XII intact, no gait normal Results - Labs CBC & Chem 7: 11/22/19 05:00 11/24/19 05:24 Labs: Laboratory Last Values WBC 10.4 K/mm3 (4.5-11.0) 11/22/19 05:00 RBC 3.45 M/mm3 (3.65-5.03) L 11/22/19 05:00 Hgb 10.8 gm/dl (11.8-15.2) L D 11/22/19 05:00 Hct 32.7 % (35.5-45.6) L D 11/22/19 05:00 MCV 95 fl (84-94) H 11/22/19 05:00 MCH 31 pg (28-32) 11/22/19 05:00 MCHC 33 % (32-34) 11/22/19 05:00 RDW 15.6 % (13.2-15.2) H 11/22/19 05:00 Plt Count 343 K/mm3 (140-440) 11/22/19 05:00 Lymph % (Auto) 13.5 % (13.4-35.0) 11/22/19 05:00 [place] % (Auto) 9.7 % (0.0-7.3) H 11/22/19 05:00 Eos % (Auto) 0.0 % (0.0-4.3) 11/22/19 05:00 Baso % (Auto) 0.4 % (0.0-1.8) 11/22/19 05:00 Lymph # 1.4 K/mm3 (1.2-5.4) 11/22/19 05:00 [place] # 1.0 K/mm3 (0.0-0.8) H 11/22/19 05:00 Eos # 0.0 K/mm3 (0.0-0.4) 11/22/19 05:00 Baso # 0.0 K/mm3 (0.0-0.1) 11/22/19 05:00 Seg Neutrophils % 76.4 % (40.0-70.0) H 11/22/19 05:00 Seg Neutrophils # 7.9 K/mm3 (1.8-7.7) H 11/22/19 05:00 PT 15.3 Sec. (12.2-14.9) H 11/20/19 14:27 INR 1.24 (0.87-1.13) H 11/20/19 14:27 D-Dimer 4762.24 ng/mlDDU (0-234) H 11/20/19 15:16 ABG pH 7.369 pH Units (7.350-7.450) 11/22/19 03:29 ABG pCO2 45.0 mm Hg 11/22/19 03:29 ABG pO2 140.4 mm Hg (80.0-90.0) H 11/22/19 03:29 ABG HCO3 25.3 mmol/L (20.0-26.0) 11/22/19 03:29 ABG O2 Saturation 98.7 % (95.0-99.0) 11/22/19 03:29 ABG O2 Content 16.4 (0.0-44) 11/22/19 03:29 ABG Base Excess -0.2 mmol/L (-2.0-3.0) 11/22/19 03:29 ABG Hemoglobin 11.8 gm/dl (14.0-18.0) L 11/22/19 03:29 ABG Carboxyhemoglobin 1.1 % (0.0-5.0) 11/22/19 03:29 ABG Methemoglobin 0.6 % (0.0-1.5) 11/22/19 03:29 VBG pH 7.477 (7.320-7.420) H 11/20/19 14:36 Oxyhemoglobin 97.0 % (95.0-99.0) 11/22/19 03:29 FiO2 40 % 11/22/19 03:29 Sodium 149 mmol/L (137-145) H 11/24/19 05:24 Potassium 4.0 mmol/L (3.6-5.0) 11/24/19 05:24 Chloride 109.6 mmol/L (98-107) H 11/24/19 05:24 Carbon Dioxide 25 mmol/L (22-30) 11/24/19 05:24 Anion Gap 18 mmol/L 11/24/19 05:24 BUN 36 mg/dL (9-20) H 11/24/19 05:24 Creatinine 0.7 mg/dL (0.8-1.5) L 11/24/19 05:24 Estimated GFR > 60 ml/min 11/24/19 05:24 BUN/Creatinine Ratio 51 % 11/24/19 05:24 Glucose 87 mg/dL (75-100) 11/24/19 05:24 POC Glucose 101 (70-105) 11/25/19 05:40 Lactic Acid 1.50 mmol/L (0.7-2.0) 11/20/19 19:11 Calcium 9.0 mg/dL (8.4-10.2) 11/24/19 05:24 Phosphorus 3.90 mg/dL (2.5-4.5) 11/21/19 20:31 Magnesium 2.70 mg/dL (1.7-2.3) H 11/23/19 15:09 Ferritin 1110.0 ng/mL (13.0-400.0) H 11/20/19 15:16 Total Bilirubin 0.40 mg/dL (0.1-1.2) 11/22/19 05:00 AST 43 units/L (5-40) H 11/22/19 05:00 ALT 19 units/L (7-56) 11/22/19 05:00 Alkaline Phosphatase 51 units/L (35-129) 11/22/19 05:00 Lactate Dehydrogenase 329 units/L (91-180) H 11/20/19 15:16 Total Creatine Kinase 65 units/L (55-170) 11/20/19 15:16 C-Reactive Protein 10.00 mg/dL (0.00-1.30) H 11/20/19 15:16 Total Protein 8.0 g/dL (6.3-8.2) 11/22/19 05:00 Albumin 2.3 g/dL (3.9-5) L 11/22/19 05:00 Albumin/Globulin Ratio 0.4 % 11/22/19 05:00 Procalcitonin 0.22 ng/mL (<0.15) 11/20/19 15:16 Urine Color Gissel (Yellow) 11/20/19 14:20 Urine Turbidity Clear (Clear) 11/20/19 14:20 Urine pH 5.0 (5.0-7.0) 11/20/19 14:20 Ur Specific Unity 1.027 (1.003-1.030) 11/20/19 14:20 Urine Protein 30 mg/dl mg/dL (Negative) 11/20/19 14:20 Urine Glucose (UA) Neg mg/dL (Negative) 11/20/19 14:20 Urine Ketones Neg mg/dL (Negative) 11/20/19 14:20 Urine Blood Sm (Negative) 11/20/19 14:20 Urine Nitrite Neg (Negative) 11/20/19 14:20 Urine Bilirubin Neg (Negative) 11/20/19 14:20 Urine Urobilinogen < 2.0 mg/dL (<2.0) 11/20/19 14:20 Ur Leukocyte Esterase Neg (Negative) 11/20/19 14:20 Urine WBC (Auto) 4.0 /HPF (0.0-6.0) 11/20/19 14:20 Urine RBC (Auto) 16.0 /HPF (0.0-6.0) 11/20/19 14:20 Urine Mucus 3+ /HPF 11/20/19 14:20 Vancomycin Trough 23.5 ug/mL (5.0-20.0) H 11/23/19 04:37 Coronavirus (PCR) Negative (Negative) 11/25/19 10:08 Microbiology: Microbiology 11/21/19 Unknown Tracheal Aspirate Sputum Culture - Preliminary Staphylococcus Aureus 11/20/19 Unknown Peripheral/Venous Blood Culture - Preliminary NO GROWTH AFTER 4 DAYS 11/20/19 Unknown Peripheral/Venous Blood Culture - Preliminary NO GROWTH AFTER 4 DAYS Buchanan/IV: Voiding Method Condom Catheter IV Catheter Type [Right INT / Saline Lock Forearm] IV Catheter Type [Left Wrist] INT / Saline Lock Active Medications - Current Medications Current Medications: Generic Name Dose Route Start Last Admin Trade Name Freq PRN Reason Stop Dose Admin Albuterol 2.5 mg 11/21/19 16:09 Proventil IH Q4HRT PRN Shortness Of Breath Lipase/Protease/Amylase 1 each 11/22/19 09:00 Pancreaze 10,500 Unit FEEDTUBE PRN PRN For Clogged Feeding Tube Famotidine 20 mg 11/21/19 12:00 11/25/19 10:14 Pepcid IV 20 mg BID MARY Administration Fentanyl 50 mcg 11/20/19 14:55 Sublimaze IV Q10MIN PRN ANALGESIA Heparin Sodium (Porcine) 5,000 unit 11/20/19 22:00 11/25/19 10:13 Heparin SUB-Q 5,000 unit Q12HR MARY Administration Hydralazine HCl 10 mg 11/25/19 01:01 11/25/19 01:32 Apresoline IV 10 mg Q6H PRN Administration SBP >160 Hydrophilic Ointment 1 applic 11/20/19 14:55 Vaseline Lip Therapy TP Q2HR PRN Dry Lips Fentanyl Citrate 2,000 mcg in 100 mls @ 3.969 mls/hr 11/20/19 15:00 11/22/19 11:50 Fentanyl Drip Premix IV Infused TITR MARY Titration Protocol 1 MCG/KG/HR Midazolam HCl 100 mg/ Sodium 100 mls @ 2 mls/hr 11/20/19 15:00 Chloride IV TITR MARY Protocol 2 MG/HR Cefepime HCl 2 gm in 100 mls @ 200 mls/hr 11/21/19 15:00 11/25/19 10:20 Cefepime/Ns 2 Gm/100 Ml IV 200 mls/hr Q12HR MARY Administration Protocol Midazolam HCl 2 mg 11/20/19 14:55 Versed IV Q10MIN PRN Sedation Multi-Ingred Cream/Lotion/Oil/Oint 1 applic 11/20/19 14:55 Artificial Tears Ophth Oint OU Q4HR PRN Dry Eye(s) Simple Syrup 15 ml 11/22/19 09:00 Simple Syrup FEEDTUBE PRN PRN Hypoglycemia Simple Syrup 30 ml 11/22/19 09:00 Simple Syrup FEEDTUBE PRN PRN Hypoglycemia Sodium Bicarbonate 325 mg 11/22/19 09:00 Sodium Bicarbonate FEEDTUBE PRN PRN For Clogged Feeding Tube Sodium Chloride 10 ml 11/20/19 22:00 11/25/19 10:14 Sodium Chloride Flush Syringe 10 Ml IV 10 ml BID MARY Administration Sodium Chloride 10 ml 11/20/19 15:22 11/25/19 01:34 Sodium Chloride Flush Syringe 10 Ml IV 10 ml PRN PRN Administration LINE FLUSH Nutrition/Malnutrition Assess - Dietary Evaluation Nutrition/Malnutrition Findings: Nutrition Notes Start: 11/21/19 08:43 Freq: Status: Active Protocol: Document 11/22/19 08:23 LP (Rec: 11/22/19 08:33 LP [id number]) Nutrition Notes Need for Assessment generated from: MD Order Initial or Follow up Reassessment Current Diagnosis Decubitus(Pressure Ulcer), Respiratory Failure Other Pertinent Diagnosis SIRS, Encephalopathy, sacral and R buttock wound Current Diet NPO Labs/Tests K 5.4 Pertinent Medications Reviewed Height 6 ft Weight 79.379 kg Dante Body Weight (kg) 80.90 BMI 23.7 Weight Status Appropriate Subjective/Other Information Consult for TF. Burn Absent Trauma Absent GI Symptoms None Current % PO Negligible Minimum of two criteria No physical signs of malnutrition #2 Nutrition Diagnosis Increased nutrient needs ( specify in comment below) Diagnosis Progress(for reassessment Continues documentation) #1 Nutrition Diagnosis Inadequate oral intake Diagnosis Progress(for reassessment Continues documentation) Is patient on ventilator? Yes Is Patient Ambulatory and/or Out of Bed No REE-([facility]-confined to bed) 2021.192 Calculation Used for Recommendations [facility] Additional Notes Protein needs are 95-159g (1.2 -2g/kg) Fluid needs are 1ml/kcal Nutrition Intervention Change Diet Order: TF Nutrition Support: Change to Nepro at 46ml/hr Flush with 200ml q4h Kcal 1,987 Protein (gm) 89 Fluid (mL) 803 Goal #1 Meet at least 80% of kcal and protein needs Goal #2 Wound healing Anticipated Discharge Needs: Unable to determine at this time Follow-Up By: 11/26/19 Additional Comments Follow for TF start and tolerance
--- NOTE | 2019-11-26 08:18 | XRay Report ---
CHEST 1 VIEW INDICATION: follow up respiratory failure. COMPARISON: 11/24/2019 FINDINGS: Support devices: A nasogastric tube terminates in the fundus of the stomach. Heart: Within normal limits. Lungs/Pleura: The lungs are hyperinflated but clear. No pleural effusion or pneumothorax is identifie d. Additional findings: None. IMPRESSION: Mild hyperinflation. No acute change since 11/24/2019. Signer Name: Redd Arriaga Jr, MD Signed: 11/26/2019 8:14 AM Workstation Name: [id number]
[2019-11-26] MEDS: CEFEPIME/NS 2 GM/100 ML 2 GM/100 ML BAG IV SCH (09:40)
[2019-11-26] MEDS: HEPARIN 5,000 UNIT/1 ML VIAL SUB-Q SCH (09:41)
[2019-11-26] MEDS: FAMOTIDINE 20 MG/2 ML INJ IV SCH (09:42)
--- NOTE | 2019-11-26 11:36 | Discharge Summary ---
Providers - Providers Date of Admission: 11/20/19 15:22 Attending physician: JONI POLANCO 11/20/19 14:55 Consult to Dietitian/Nutrition [CONS] Routine Physician Instructions: Reason For Exam: Reason for Consult: Evaluate nutritional intake Consult to Physician [CONS] Stat Comment: Consulting Provider: MARGARETH SCHMIDT Physician Instructions: Reason For Exam: acute resp failure 11/20/19 15:26 Consult to Physician [CONS] Routine Comment: Consulting Provider: JAVI OLGUIN Physician Instructions: Reason For Exam: COVID PUI 11/21/19 16:11 Consult to Dietitian/Nutrition [CONS] Routine Physician Instructions: Reason For Exam: Reason for Consult: Write/Manage Tube Feeding 11/24/19 12:10 Physical Therapy Evaluation and Treat [CONS] Routine Comment: Reason For Exam: weakness 11/24/19 16:38 Speech Therapy Evaluation and Treat [CONS] Routine Reason For Exam: dysphagia 11/26/19 02:13 Consult to Wound/ET Nurse [CONS] Routine Reason For Exam: wound eval for sacral, coccyx, & R buttocks ulcers Primary care physician: SUSTAINABLE DESIGN CONSULTANT Hospitalization Condition: Critical Hospital course: 54 YO Male Personal Fci Resident with Debility, Severe Malnutrition presents to ED for evaluation. Patient was intubated and on ventilatory support at the time of my evaluation and was unable to provide history. Patient history taken from EMS staff, as well as ED staff, and personal jail staff. As per personal jail staff-the patient was found to have shortness of breath on day of admission, as well as concomitant confusion. EMS was notified and upon arrival the patient was found to be in distress and placed on supplemental oxygen and transported to [facility] for further evaluation and care. Patient seen and evaluated in the emergency department. Lab and imaging studies reviewed. The patient was found to have a pulse oximetry of 82% on room air , encephalopathic, and was unable to protect his airway. The patient was intubated and placed on vent support. Patient also found to have SIRS, and clinical findings suggestive of COVID 19 Infection. Patient initiated on COVID-19 protocol. Infectious disease service consulted in ED, Pulmonology consulted in ED. Patient initiated on pneumonia protocol. Patient symptoms improved. Patient was subsequently treated with the aforementioned therapy. Patient was successfully extubated on hospital day 3. On hospital day 4 the patient was transferred out of the intensive care unit and to the medical floor. Patient hospital course was complicated by dysphagia and generalized weakness. Patient medically optimized but has poor prognosis. Patient subsequently discharged to home hospice care under the care of the medical historian. Patient seen and evaluated prior to discharge but no significant new physical exam findings. 35 minutes dedicated to patient discharge and coordination of care. Disposition: [id number] HOSPICE ([facility]) - Discharge Diagnoses (1) Acute respiratory failure Status: Acute Qualifiers: Respiratory failure complication: hypoxia Qualified Code(s): J96.01 - Acute respiratory failure with hypoxia (2) Suspected 2019 novel coronavirus infection Status: Acute (3) Systemic inflammatory response syndrome (SIRS) Status: Acute (4) Encephalopathy Status: Acute (5) Dysphagia Status: Acute (6) DVT prophylaxis Status: Acute (7) Advance care planning Status: Acute Core Measure Documentation - Palliative Care Palliative Care/ Comfort Measures: Hospice Care - Core Measures Any of the following diagnoses?: none Exam - Constitutional Vitals: Temp Pulse Resp BP Pulse Ox 98.0 F 86 18 138/96 100 11/26/19 08:00 11/26/19 08:00 11/26/19 08:00 11/26/19 08:00 11/26/19 08:00 General appearance: Present: no acute distress, cachectic - EENT Eyes: Present: PERRL ENT: hearing intact, clear oral mucosa - Neck Neck: Present: supple, normal ROM - Respiratory Respiratory effort: normal Respiratory: bilateral: CTA - Cardiovascular Heart Sounds: Present: S1 & S2. Absent: rub, click - Extremities Extremities: pulses symmetrical, No edema Peripheral Pulses: within normal limits - Abdominal General gastrointestinal: Present: soft, non-tender, non-distended, normal bowel sounds Male genitourinary: Present: normal - Integumentary Integumentary: Present: clear, warm, dry - Musculoskeletal Musculoskeletal: generalized weakness, other (Bilateral lower extremity contracture) - Psychiatric Psychiatric: no appropriate mood/affect, no intact judgment & insight, no memory intact - Neurologic Neurologic: CNII-XII intact, no moves all extremities, no gait normal Plan Activity: advance as tolerated Diet: thickened liquids, other (Dysphasia diet) Follow up with: PRIMARY CARE, [Primary Care Provider] - 3-5 Days
[2019-11-26 11:54] VITALS: BP 127/84
--- NOTE | 2019-11-26 12:58 | Progress Note ---
Assessment and Plan Patient alert, awake. Patient agitating at times. No acute respiratory distress. Patient is on 4 litres O2 via nasal canula. O2 saturation 100%. Patient afebrile. No Leukocytosis. To days 11/26/19 chest xray reported hyperinflation, No acute change. - Patient Problems (1) Acute respiratory failure Current Visit: Yes Status: Acute Qualifiers: Respiratory failure complication: hypoxia Qualified Code(s): J96.01 - Acute respiratory failure with hypoxia Plan to address problem: O2 4 litres via nasal canula. Albuterol/atrovent aerosol treatments q 6 hours. Continue S/C Heparine. Patient is on cepefime. (2) Suspected 2019 novel coronavirus infection Current Visit: Yes Status: Acute Plan to address problem: COVID 19 PCR is negative. (3) CVA (cerebral vascular accident) Current Visit: No Status: Acute Qualifiers: Precerebral and cerebral artery: middle cerebral artery Laterality of affected vessel: left Plan to address problem: Management as per primary care and Neurology. (4) DVT prophylaxis Current Visit: No Status: Acute Plan to address problem: Continue S/C Heparin. Subjective Date of service: 11/26/19 Principal diagnosis: Ac. hypoxemic resp failure; SIRS; Elijah. PNA; [id number] infection; Autism Interval history: Patient alert, awake. Patient agitating at times. No acute respiratory distress. Patient is on 4 litres O2 via nasal canula. O2 saturation 100%. Patient afebrile. No Leukocytosis. To days 11/26/19 chest xray reported hyperinflation, No acute change. Objective Vital Signs - 12hr 11/26/19 11/26/19 11/26/19 03:05 05:15 05:54 Temperature 98.3 F Pulse Rate 82 89 Pulse Rate [ From Monitor] Respiratory 20 18 Rate Blood Pressure 146/96 Blood Pressure [Right] O2 Sat by Pulse 99 Oximetry 11/26/19 11/26/19 11/26/19 08:00 10:00 11:00 Temperature 98.0 F 98.3 F Pulse Rate 86 80 Pulse Rate [ 100 H From Monitor] Respiratory 18 20 19 Rate Blood Pressure Blood Pressure 138/96 127/84 [Right] O2 Sat by Pulse 100 96 100 Oximetry 11/26/19 12:00 Temperature Pulse Rate 100 H Pulse Rate [ From Monitor] Respiratory Rate Blood Pressure Blood Pressure [Right] O2 Sat by Pulse Oximetry Constitutional: alert, agitated, appears uncomfortable Eyes: non-icteric ENT: oropharynx moist, other (extubated) Neck: supple, no lymphadenopathy Effort: normal Ascultation: Bilateral: diminished breath sounds, other (Prolonged expiratory phase.) Percussion: Bilateral: not dull Cardiovascular: regular rate and rhythm, other (S1,S2, no murmurs, no gallops, no rubs) Gastrointestinal: normoactive bowel sounds, soft, non-tender, non-distended Integumentary: rash (xeroderma) Extremities: no cyanosis, no edema, pulses normal, no ischemia or petechiae Neurologic: non-focal exam (grossly), pupils equal and round, CN II-XII normal, other (awake) Psychiatric: other CBC and BMP: 11/22/19 05:00 11/24/19 05:24 ABG, PT/INR, D-dimer: ABG ABG pH 7.369 pH Units (7.350-7.450) 11/22/19 03:29 ABG pCO2 45.0 mm Hg 11/22/19 03:29 ABG pO2 140.4 mm Hg (80.0-90.0) H 11/22/19 03:29 ABG O2 Saturation 98.7 % (95.0-99.0) 11/22/19 03:29 PT/INR, D-dimer PT 15.3 Sec. (12.2-14.9) H 11/20/19 14:27 INR 1.24 (0.87-1.13) H 11/20/19 14:27 D-Dimer 4762.24 ng/mlDDU (0-234) H 11/20/19 15:16 Abnormal lab findings: Abnormal Labs 11/20/19 11/20/19 11/20/19 14:19 14:27 14:27 WBC 11.3 H RBC Hgb Hct MCV RDW 15.5 H Plt Count 479 H Lymph % (Auto) 10.8 L Merrick % (Auto) Merrick # Seg Neutrophils % 82.8 H Seg Neutrophils # 9.4 H PT 15.3 H INR 1.24 H D-Dimer ABG pH ABG pO2 ABG HCO3 ABG Hemoglobin VBG pH Sodium Potassium Chloride BUN 21 H Creatinine 0.6 L Glucose 128 H POC Glucose Magnesium Ferritin AST Lactate Dehydrogenase C-Reactive Protein Total Protein 9.0 H Albumin 2.9 L Vancomycin Trough 11/20/19 11/20/19 11/20/19 14:36 15:16 15:16 WBC RBC Hgb Hct MCV RDW Plt Count Lymph % (Auto) Merrick % (Auto) Merrick # Seg Neutrophils % Seg Neutrophils # PT INR D-Dimer 4762.24 H ABG pH ABG pO2 ABG HCO3 ABG Hemoglobin VBG pH 7.477 H Sodium Potassium Chloride BUN Creatinine Glucose 122 H POC Glucose Magnesium Ferritin AST Lactate Dehydrogenase 329 H C-Reactive Protein 10.00 H Total Protein Albumin Vancomycin Trough 11/20/19 11/21/19 11/21/19 15:16 03:55 12:18 WBC RBC Hgb Hct MCV RDW Plt Count Lymph % (Auto) Merrick % (Auto) Merrick # Seg Neutrophils % Seg Neutrophils # PT INR D-Dimer ABG pH 7.323 L ABG pO2 127.0 H ABG HCO3 26.1 H ABG Hemoglobin 12.2 L VBG pH Sodium Potassium Chloride BUN Creatinine Glucose POC Glucose 108 H Magnesium Ferritin 1110.0 H AST Lactate Dehydrogenase C-Reactive Protein Total Protein Albumin Vancomycin Trough 11/21/19 11/22/19 11/22/19 17:47 00:00 03:29 WBC RBC Hgb Hct MCV RDW Plt Count Lymph % (Auto) Merrick % (Auto) Merrick # Seg Neutrophils % Seg Neutrophils # PT INR D-Dimer ABG pH ABG pO2 140.4 H ABG HCO3 ABG Hemoglobin 11.8 L VBG pH Sodium Potassium Chloride BUN Creatinine Glucose POC Glucose 114 H 114 H Magnesium Ferritin AST Lactate Dehydrogenase C-Reactive Protein Total Protein Albumin Vancomycin Trough 11/22/19 11/22/19 11/22/19 05:00 05:00 12:07 WBC RBC 3.45 L Hgb 10.8 L D Hct 32.7 L D MCV 95 H RDW 15.6 H Plt Count Lymph % (Auto) Merrick % (Auto) 9.7 H Merrick # 1.0 H Seg Neutrophils % 76.4 H Seg Neutrophils # 7.9 H PT INR D-Dimer ABG pH ABG pO2 ABG HCO3 ABG Hemoglobin VBG pH Sodium Potassium 5.4 H Chloride BUN 57 H Creatinine Glucose 105 H POC Glucose 116 H Magnesium Ferritin AST 43 H Lactate Dehydrogenase C-Reactive Protein Total Protein Albumin 2.3 L Vancomycin Trough 11/23/19 11/23/19 11/23/19 00:14 04:37 05:47 WBC RBC Hgb Hct MCV RDW Plt Count Lymph % (Auto) Merrick % (Auto) Merrick # Seg Neutrophils % Seg Neutrophils # PT INR D-Dimer ABG pH ABG pO2 ABG HCO3 ABG Hemoglobin VBG pH Sodium Potassium Chloride BUN Creatinine Glucose POC Glucose 114 H 110 H Magnesium Ferritin AST Lactate Dehydrogenase C-Reactive Protein Total Protein Albumin Vancomycin Trough 23.5 H 11/23/19 11/23/19 11/24/19 08:00 15:09 05:24 WBC RBC Hgb Hct MCV RDW Plt Count Lymph % (Auto) Merrick % (Auto) Merrick # Seg Neutrophils % Seg Neutrophils # PT INR D-Dimer ABG pH ABG pO2 ABG HCO3 ABG Hemoglobin VBG pH Sodium 149 H 149 H Potassium Chloride 112.8 H 109.6 H BUN 44 H 36 H Creatinine 0.7 L Glucose POC Glucose Magnesium 2.70 H Ferritin AST Lactate Dehydrogenase C-Reactive Protein Total Protein Albumin Vancomycin Trough 11/26/19 11/26/19 11/26/19 00:50 06:32 07:34 WBC RBC Hgb Hct MCV RDW Plt Count Lymph % (Auto) Merrick % (Auto) Merrick # Seg Neutrophils % Seg Neutrophils # PT INR D-Dimer ABG pH ABG pO2 ABG HCO3 ABG Hemoglobin VBG pH Sodium Potassium Chloride BUN Creatinine Glucose POC Glucose 107 H 114 H 119 H Magnesium Ferritin AST Lactate Dehydrogenase C-Reactive Protein Total Protein Albumin Vancomycin Trough Chest x-ray: report reviewed (Reported Hyperinflation. No acute change.), image reviewed Allied health notes reviewed: nursing
[2019-11-26] MEDS ORDERED: FAMOTIDINE 20 MG TAB FEEDTUBE SCH (22:00)
== END 2019-11-26 18:14 | disposition hospice, inpatient (51) | DRG 208 ==
LOC: ED 13:55 → CC1 15:22 → 4A 11-24 16:36
PROVIDERS: ADMIT Internal Medicine; ATTEND Internal Medicine
PROC: 5A1945Z Respiratory Ventilation, 24-96 Consecutive Hours (ICD-10-PCS; 2019-11-20)
PROC: 0BH17EZ Insertion of Endotracheal Airway into Trachea, Via Natural or Artificial Opening (ICD-10-PCS; 2019-11-20)
PROC: 4A033R1 Measurement of Arterial Saturation, Peripheral, Percutaneous Approach (ICD-10-PCS; principal; 2019-11-22)
DX: J96.01 Acute respiratory failure with hypoxia (principal); E43 Unspecified severe protein-calorie malnutrition; J18.9 Pneumonia, unspecified organism; G92 Toxic encephalopathy; R65.10 Systemic inflammatory response syndrome (SIRS) of non-infectious origin without acute organ dysfunction; Z68.1 Body mass index [BMI] 19.9 or less, adult; J96.02 Acute respiratory failure with hypercapnia; Z03.818 Encounter for observation for suspected exposure to other biological agents ruled out; Z86.73 Personal history of transient ischemic attack (TIA), and cerebral infarction without residual deficits
CPT/HCPCS: 36415; 36600; 71045; 71250; 74018; 74176; 80048; 80053; 80202; 81001; 82140; 82550; 82728; 82803; 82805; 82947; 82962; 83615; 83735; 84100; 84145; 85025; 85379; 85610; 86140; 86689; 87040; 87070; 87076; 87086; 87186; 87205; 88112; 88312; 93005; 94002; 94003; 94760; G0378; J0360; J0692; J0696; J1644; J3010; J3370; J7030; J7040; J7050; U0003-CS

== ENCOUNTER 2019-12-09 11:16 | Emergency (ER) | payer MEDICAID, OTHER ==
[2019-12-09] MEDS ORDERED: SODIUM CHLORIDE 0.9% 500 ML 500 ML IV ONE (11:32)
[2019-12-09] MEDS ORDERED: dilTIAZem 25 MG/5 ML INJ IV ONE ×2 (11:42→13:48)
[2019-12-09] MEDS ORDERED: cefTRIAXone/NS 1 GM/50 ML 1 GM/50 ML BAG IV ONE (11:46)
--- NOTE | 2019-12-09 11:46 | Emergency Department Report ---
HPI - General Chief Complaint: Fever Time Seen by Provider: 12/09/19 11:32 - HPI HPI: 54-year-old black male presents to the emergency department via EMS from his personal long-term with a complaint of respiratory distress. The patient was found to be tachycardic, tachypneic with a questionable low-grade fever and was made a code sepsis. The patient was most recently admitted here in late October and discharged on 11/26/2019 for respiratory distress requiring intubation, pneumonia. Patient was ruled out for COVID-19 on 11/20. Patient is a poor historian secondary to his current medical condition. Patient had a CT of the chest during his last admission that showed cavitary lung disease and a left basilar pneumonia. ED Past Medical Hx - Past Medical History Previous Medical History?: Yes Hx CVA: Yes Hx Heart Attack/AMI: (unknown) Hx Congestive Heart Failure: (unknown) Hx Diabetes: (unknown) Hx Deep Vein Thrombosis: (unknown) Hx Arthritis: (unknown) Hx Seizures: (unknown) Hx Asthma: (unknown) Hx COPD: (Ubknown) Hx HIV: (chaparrita) Additional medical history: unable to assess - Surgical History Hx Cholecystectomy: (unknown) Hx Appendectomy: (unknown) Additional Surgical History: unable to assess - Social History Smoking Status: Unknown if ever smoked - Medications Home Medications: Home Medications Medication Instructions Recorded Confirmed Last Taken Type ALPRAZolam [Xanax TAB] 1 mg PO HS PRN 11/09/19 11/09/19 Unknown History Nicotine [Habitrol] 21 mg TRANSDERMA Q24HR 11/09/19 11/09/19 Unknown History haloperidoL [Haloperidol] 5 mg PO DAILY 11/09/19 11/09/19 Unknown History Ciprofloxacin HCl [Ciprofloxacin 500 mg PO Q12HR #20 tab 12/09/19 Unknown Rx TAB] LORazepam [Ativan] 1 mg PO QHS #30 tab 12/09/19 Unknown Rx Morphine Concentrate [MORPHINE 10 mg PO Q4HR PRN #30 ml 12/09/19 Unknown Rx Conc 20 MG/ML ORAL LIQ] ED Review of Systems ROS: Stated complaint: SEPSIS Other details as noted in HPI Comment: Unobtainable due to pts medical conditions Physical Exam - Physical Exam Vital Signs: Vital Signs 12/09/19 12/09/19 12/09/19 11:22 11:25 11:27 Temperature Pulse Rate 126 H 133 H Respiratory 38 H 53 H Rate Blood Pressure O2 Sat by Pulse 95 93 94 Oximetry 12/09/19 12/09/19 12/09/19 11:29 11:30 11:31 Temperature 99 F Pulse Rate 120 H 131 H Respiratory 51 H 50 H Rate Blood Pressure 137/78 137/78 O2 Sat by Pulse 94 95 Oximetry Physical Exam: GENERAL: Patient is ill-appearing. Cachectic appearance. HENT: Normocephalic. Atraumatic. Patient has moist mucous membranes. EYES: Extraocular motions are intact. Pupils equal reactive to light b ilaterally. NECK: Supple. Trachea is midline. CHEST/LUNGS: Clear to auscultation. There is tachypnea and accessory muscle use. HEART/CARDIOVASCULAR: There is moderate to severe tachycardia. ABDOMEN: Abdomen is soft, nontender. Patient has normal bowel sounds. SKIN: Skin is warm and dry. NEURO: Patient is awake but otherwise confused and/or not following commands. Withdraws from painful stimuli. MUSCULOSKELETAL: There is no obvious deformity. ED Course Vital Signs 12/09/19 12/09/19 12/09/19 11:22 11:25 11:27 Temperature Pulse Rate 126 H 133 H Respiratory 38 H 53 H Rate Blood Pressure O2 Sat by Pulse 95 93 94 Oximetry 12/09/19 12/09/19 12/09/19 11:29 11:30 11:31 Temperature 99 F Pulse Rate 120 H 131 H Respiratory 51 H 50 H Rate Blood Pressure 137/78 137/78 O2 Sat by Pulse 94 95 Oximetry ED Medical Decision Making - Lab Data Result diagrams: 12/09/19 11:45 12/09/19 11:45 - EKG Data -: EKG Interpreted by [facility] EKG shows normal: sinus rhythm (PVCs), axis (Left axis deviation), intervals, QRS complexes (LVH), ST-T waves (Nonspecific ST-T waves) Rate: tachycardia (130 bpm) - EKG Data When compared to previous EKG there are: no significant change Interpretation: unchanged when compared t (11/20/19) - Radiology Data Radiology results: report reviewed CHEST 1 VIEW INDICATION / CLINICAL INFORMATION: SOB. COMPARISON: Chest radiograph 11/26/[address] chest 11/23/2019 FINDINGS: SUPPORT DEVICES: None. HEART / MEDIASTINUM: Stable. LUNGS / PLEURA: Interval development of a left retrocardiac consolidative opacity. Probable trace right pleural effusion. No pneumothorax. ADDITIONAL FINDINGS: No significant additional findings. IMPRESSION: 1. Interval development of a left retrocardiac consolidative opacity worrisome for pneumonia in the appropriate clinical setting. - Medical Decision Making This patient was sent in from his personal long-term secondary to some shortness of breath and/or respiratory distress. He had tachycardia, tachypnea, and a low -grade fever and was made a code sepsis. The patient was immediately made a person under investigation for Covid 19 and placed in droplet precautions and patient isolation. From that time on I wore full PPE and to see the patient including a mask, gloves, surgical Hat, gown, and goggles. Patient was started on antibiotics and IV fluid resuscitation. A chest x-ray was done that shows a possible retrocardiac infiltrate concerning for pneumonia. Patient was found with extremely fast heart rate reaching about 180 before going back down to about 120. Multiple EKGs were done and 1 of them showed concern for atrial fibrillation with RVR. The patient was given 2 different doses of IV Cardizem for rate control and each time he did appear to convert back to a sinus rhythm. Patient has multiple elevated inflammatory markers including d-dimer, ferritin, CRP, with concern for possible Covid. It was my intention to admit this patient for further evaluation and treatment and this was presented to the hospitalist, Dr. Bethea. However it was brought to my attention that the patient is part of [facility] hospice. I did speak with [facility] and they told me that the hospice was rescinded. It now appears that Dr. Bethea was able to come to an arrangement between the [facility] and the hospice company and the patient will be sent back to the [facility] under the management of the hospice site medical director. Critical Care Time: Yes Critical care time in (mins) excluding proc time.: 35 Critical care attestation.: If time is entered above; I have spent that time in minutes in the direct care of this critically ill patient, excluding procedure time. My critical care time was spent on this patient in doing his initial evaluation, multiple re- evaluations, ordering and interpretation of labs and imaging, IV fluid resuscitation, IV antibiotics, discussion with [facility] hospice. Critical Care Time: 35 minutes ED Disposition Clinical Impression: Systemic inflammatory response syndrome (SIRS), Suspected 2019 novel cor onavirus infection Pneumonia Qualifiers: Pneumonia type: due to unspecified organism Laterality: unspecified laterality Lung location: unspecified part of lung Qualified Code(s): J18.9 - Pneumonia, unspecified organism UTI (urinary tract infection) Qualifiers: Urinary tract infection type: site unspecified Hematuria presence: without hematuria Qualified Code(s): N39.0 - Urinary tract infection, site not specified Sepsis Qualifiers: Sepsis type: sepsis due to unspecified organism Severe sepsis acute organ dysfunction type: unspecified Severe sepsis shock status: unspecified Disposition: OP ADMIT IP TO THIS HOSP Is pt being admited?: Yes Condition: Serious Instructions: Bacterial Pneumonia (ED) Prescriptions: LORazepam [Ativan] 1 mg PO QHS #30 tab Ciprofloxacin HCl [Ciprofloxacin TAB] 500 mg PO Q12HR #20 tab Morphine Concentrate [MORPHINE Conc 20 MG/ML ORAL LIQ] 10 mg PO Q4HR PRN #30 ml PRN Reason: Pain , Severe (7-10) Time of Disposition: 19:10
[2019-12-09 11:58] LABS: Basophils % (Auto) 0.5 % (0.0-1.8); Hematocrit 36.5 % (35.5-45.6); Hemoglobin 12.1 gm/dl (11.8-15.2); Lymphocytes # (Auto) 1.2 K/mm3 (1.2-5.4); Lymphocytes % (Auto) 11.9 % (13.4-35.0); Mean Corpuscular HGB Conc 33 % (32-34); Mean Corpuscular Volume 92 fl (84-94); Monocytes # (Auto) 0.9 K/mm3 (0.0-0.8); Monocytes % (Auto) 8.6 % (0.0-7.3); Platelet Count 450 K/mm3 (140-440); Red Blood Count 3.97 M/mm3 (3.65-5.03); Red Cell Distribution Width 15.2 % (13.2-15.2)
--- NOTE | 2019-12-09 12:20 | XRay Report ---
CHEST 1 VIEW INDICATION / CLINICAL INFORMATION: SOB. COMPARISON: Chest radiograph 11/26/[address] chest 11/23/2019 FINDINGS: SUPPORT DEVICES: None. HEART / MEDIASTINUM: Stable. LUNGS / PLEURA: Interval development of a left retrocardiac consolidative opacity. Probable trace rig ht pleural effusion. No pneumothorax. ADDITIONAL FINDINGS: No significant additional findings. IMPRESSION: 1. Interval development of a left retrocardiac consolidative opacity worrisome for pneumonia in the a ppropriate clinical setting. Signer Name: Susie Bentley MD Signed: 12/09/2019 12:16 PM Workstation Name: [id number]
[2019-12-09] MEDS ORDERED: AZITHROMYCIN 500 MG in SODIUM CHLORIDE 0.9% 250ML 250 ML IV ONE (13:00)
[2019-12-09 13:06] LABS: Alanine Aminotransferase 15 units/L (7-56); Albumin 2.9 g/dL (3.9-5); BUN/Creatinine Ratio 31; Blood Urea Nitrogen 22 mg/dL (9-20); Calcium 8.8 mg/dL (8.4-10.2); Hemolysis Index 51
[2019-12-09] MEDS ORDERED: dilTIAZem 25 MG/5 ML INJ ONE (13:45)
[2019-12-09 14:38] LABS: Bacteria,Urine 1+ /HPF (Negative); Bilirubin,Urine NEG (Negative); Blood,Urine LG (Negative); Color,Urine Amber (Yellow); Granular Casts,Urine 8 /LPF; Hyaline Casts,Urine 3 /LPF; Mucus,Urine 2+ /HPF
[2019-12-09 15:50] LABS: C-Reactive Protein 31.8 mg/dL (0.00-1.30)
--- NOTE | 2019-12-09 18:36 | Event Note ---
Date: 12/09/19 54-year-old male with chronic respiratory failure presents to ED for evaluation of respiratory distress. Patient is currently a personal fpc resident on hospice care and being treated with comfort measures for end-of-life care. Patient discussed with Gisela Klein [facility] [phone], and discussed patient care plan. Patient seen and evaluated in the emergency department. Lab and imaging studies reviewed. Patient found to have evidence of asymptomatic bacteriuria/UTI versus pneumonia. Patient treated with IV antibiotic therapy. And discharged with full course oral antibiotic regimen. Patient discharged with Roxanol and Ativan therapy. healthcare administrator is amenable to patient discharge and return. Patient is currently under the care of [facility] and will be reevaluated in a.m. Patient is discharged home under the care of the hospice medical transcription editor.
[2019-12-09] MEDS ORDERED: SODIUM CHLORIDE 0.9% 1000 ML 1,000 ML IV ONE (18:42)
[2019-12-09 19:50] VITALS: BP 177/134
== END 2019-12-09 19:51 | disposition admitted as inpatient to this hospital (09) ==
LOC: ED 11:16
DX: R65.10 Systemic inflammatory response syndrome (SIRS) of non-infectious origin without acute organ dysfunction (principal); J18.9 Pneumonia, unspecified organism
CPT/HCPCS: 36415; 71045; 80053; 81001; 82140; 82728; 83615; 83880; 84145; 84484; 85025; 85379; 86140; 87040; 87086; 93005; 96365; 96367; 96375; 96376; 99291; J0456; J0696; J7030; J7050